=== PATIENT | female | born 1955 | race Caucasian/White ===

== ENCOUNTER → 2019-11-13 08:14 | Outpatient (CLI) | payer MEDICARE, SELFPAY ==
--- NOTE | ~2019-11-13 | MMUS_ITS ---
EXAMINATION: MM diagnostic anabel BI w ray, US breast BI complete HISTORY: Fibrocystic changes TECHNIQUE: ML, MLO and craniocaudal 3-D tomosynthesis images of both breasts were performed and synth [facility] 2-D images were generated. CAD analysis was submitted and interpreted. High resolution complete bilateral breast ultrasound was performed. COMPARISON: 10/06/2017, 09/29/2016, 09/17/2015 bilateral diagnostic digital mammogram examinations 03/20/2019 bilateral complete breast ultrasound BREAST PARENCHYMAL COMPOSITION: The breasts are extremely dense, which lowers the sensitivity of mamm ography. FINDINGS: MAMMOGRAPHIC FINDINGS: Scattered bilateral benign calcifications are again noted, more numerous on the left. ULTRASOUND: Right breast: 9:00 3 cm from nipple: 3 x 6.4 x 10 mm parallel circumscribed mildly complicated cyst with through tr ansmission and posterior enhancement 10:00 3 cm from nipple: Parallel circumscribed sonolucency measuring 2.2 x 3.7 x 3.4 mm, compatible w ith small cyst Left breast: 8:00 4 cm from nipple: 2.6 x 4.2 x 3.5 mm sonolucency consistent with small cyst No suspicious solid lesion or shadowing of either breast is evident. IMPRESSION: 1. No mammographic evidence of malignancy 2. Routine mammographic screening is recommended. Ultrasound may be of supplemental benefit due to th e very dense tissue. BI-RADS Category 2: Benign finding(s). Reviewed, dictated and finalized at location A. MANAGER IMPRESSION: 1. No mammographic evidence of malignancy 2. Routine mammographic screening is recommended. Ultrasound may be of suppleme ntal benefit due to the very dense tissue. BI-RADS Category 2: Benign finding(s).
== END ==
PROVIDERS: PCP Family Medicine; Visit Provider Obstetrics & Gynecology
DX: R92.8 Other abnormal and inconclusive findings on diagnostic imaging of breast (principal); Z87.898 Personal history of other specified conditions
CPT/HCPCS: 76641; 77062; 77066; G0279

== ENCOUNTER 2020-07-23 23:22 | Inpatient (IN) | payer MEDICARE, SELFPAY ==
--- NOTE | ~2020-07-23 | XR_ITS ---
EXAMINATION: XR abdomen NG/feed tube insert EXAM DATE: 07/24/2020 03:21 INDICATION: Nasogastric tube insertion. TECHNIQUE: Frontal projection(s) of the abdomen for interpretation. There is no prior study for jo han. FINDINGS: Feeding tube tip projects over left upper quadrant, tip likely in stomach with the side po rt at the gastroesophageal junction. Could be safely advanced 5 cm. Contrast in the kidneys. There is large amount of colonic stool. Correlate with CT report. Lung bases unremarkable. IMPRESSION: Feeding tube tip overlying stomach but could be safely advanced 5 cm. Reviewed, dictated and finalized at location A. E NAVIGATOR
--- NOTE | ~2020-07-23 | CT_ITS ---
EXAMINATION: CT abdomen pelvis w con EXAM DATE: 07/24/2020 01:23 INDICATION: Low abdominal pain. TECHNIQUE: Spiral CT of the abdomen and pelvis was performed following intravenous injection of 100 m L Omnipaque 350. Axial, coronal and sagittal images were reviewed. The dose-length product (DLP) fo r this examination was 197.73 mGy-cm. The exposure was tailored according to patient size (auto mA e xposure control), and iterative reconstruction (ASIR) was used as additional dose reduction technique . There is no prior study for comparison. FINDINGS: Distended colon with loose appearing stool in the right lower quadrant, appearance most co nsistent with cecal volvulus or bascule, diameter up to 8 cm. No pneumatosis, perforation or wall ed romi. Small bowel unremarkable. The liver, spleen, adrenal glands and pancreas are unremarkable. Gallbladder is unremarkable. No bi liary obstruction. Portal and splenic veins are patent. Kidneys enhance symmetrically. There is no hydronephrosis. The uterus is not identified and has likely been surgically resected. The bladder is unremarkable. There is no retroperitoneal or pelvic lymphadenopathy. There is mild scattered a rteriosclerotic disease. The heart is normal in size. There are no pericardial or pleural effusions. The lung bases are unre markable. There is sclerotic 1 cm focus in the right iliac crest, most likely a bone island. 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 Reviewed, dictated and finalized at location A. ORK MGR
--- NOTE | ~2020-07-23 | XR_ITS ---
EXAMINATION: XR abdomen/kub 1V DATE: 07/24/2020 11:30 INDICATION: Cecal volvulus. TECHNIQUE: A supine view of the abdomen was obtained. COMPARISON: CT abdomen and pelvis 07/24/2020 FINDINGS: There are no dilated loops of bowel. There is a large volume of stool in the colon. The kelly ogastric tube tip is in the stomach. There is a benign bone island in right ilium. IMPRESSION: 1. Nonobstructive bowel gas pattern. Reviewed, dictated and finalized at location B. SITE DEVELOPER
--- NOTE | ~2020-07-23 | XR_ITS ---
EXAMINATION: XR chest 2V EXAM DATE: 07/24/2020 03:08 INDICATION: Abdominal pain. TECHNIQUE: Frontal and lateral projections of the chest obtained and reviewed. Comparison is made to prior examination from 02/11/2019. FINDINGS: Moderate chronic hyperinflation. No confluent consolidation, pneumothorax or pleural effus ion suspected. There are no osseous abnormalities identified. Cardiomediastinal silhouette is normal. Some contrast in the kidneys. IMPRESSION: Chronic hyperinflation. Reviewed, dictated and finalized at location A. GE DOOR HANGER IMPRESSION: Chronic hyperinflation.
[2020-07-23 23:27] VITALS: BP 145/51; PULSE 54; RESP 14; TEMP 36.4; O2SAT 100
[2020-07-24] VITALS (9 sets, daily range): BP systolic 96–135; BP diastolic 45–63; PULSE 53–67; RESP 16–18; TEMP 36.8–37.2; O2SAT 95–100
[2020-07-24 00:09] LABS: Basophils Percent Auto 0.4 % (0.2-1.2); Eosinophils Absolute Auto 0.1 K/mm3 (0-0.3); Hematocrit 39.9 % (37.0-47.0); Hemoglobin 14.4 g/dL (12.0-15.0); Immature Granulocyte Absolute 0.03 K/mm3 (0.00-0.031); Immature Granulocyte Percent A 0.4 % (0-0.5); Lymphocytes Absolute Auto 0.97 K/mm3 (0.9-3.2); Lymphocytes Percent Auto 12.5 % (18.3-44.2); Mean Corpuscular HGB Conc 36.1 g/dl (32-36); Mean Corpuscular Hemoglobin 35.2 pg (26-34); Mean Corpuscular Volume 97.6 fl (80-100); Mean Platelet Volume 9.4 fl (7.4-10.4); Monocytes Absolute Auto 0.6 K/mm3 (0.1-0.6); Monocytes Percent Auto 7.6 % (2.6-8.5); Neutrophils Absolute Auto 6.1 K/mm3 (1.3-6.7); Neutrophils Percent Auto 78.1 % (45.5-73.1); Platelet Count Result 200 k/mm3 (150-375); Red Blood Count 4.09 M/mm3 (4.2-5.4); Red Cell Distribution Width 11.3 % (11.5-14.5); White Blood Count 7.8 K/mm3 (4.5-10.0)
[2020-07-24] MEDS: MORPHINE SULFATE (*CRX) 4 MG/ML INJ IV PUSH (00:13)
[2020-07-24] MEDS: ONDANSETRON INJ 4 MG/2 ML VIAL IV PUSH (00:13)
[2020-07-24 00:25] LABS: Alanine Aminotransferase 38 U/L (4-35); Albumin Level 4.1 g/dL (3.5-5.1); Alkaline Phosphatase 49 U/L (38-126); Anion Gap 6 mmol/L (8-16); Aspartate Amino Transferase 38 U/L (14-36); Bilirubin,Total 0.7 mg/dL (0.2-1.3); Blood Urea Nitrogen 25 mg/dL (7-17); Calcium 9.3 mg/dL (8.4-10.2); Carbon Dioxide 28 mmol/L (22-30); Chloride 100 mmol/L (98-107); Estimated CRCL calculation 50 ml/min; Estimated Glomerular Filt Rate > 60; Glucose 121 mg/dL (65-105); Lipase 94 U/L (23-300); Sodium 134 mmol/L (137-145)
--- NOTE | 2020-07-24 01:09 | ED.GENADULT ---
HPI - General Adult General Chief complaint: Abdominal Pain Stated complaint: cramping abd/back Time Seen by Provider: 07/23/20 23:50 History of Present Illness HPI narrative: Patient is a 65-year-old female who presents ER with lower abdominal cramping. Began yesterday evening. Radiates to her back. Intermittent. No nausea or vomiting or diarrhea. No previous history of diverticulitis. Denies urinary symptoms including dysuria or urinary frequency. Cannot find aggravating factors nor position comfort. Patient reports feeling very bloated like there is a lot of gas. No previous history of SBO. Related Data Allergies Allergy/AdvReac Type Severity Reaction Status Date / Time latex Allergy Intermediate RASH Verified 07/24/20 00:12 Penicillins Allergy Intermediate HIVES Verified 07/24/20 00:12 Review of Systems Review of Systems: All systems reviewed & are unremarkable except as noted in HPI and below Constitutional: Constitutional: Denies chills, Denies fever(s) and Denies weakness Gastrointestinal: Gastrointestinal: Reports abdominal pain, Reports bloating, Denies nausea and Denies vomiting Genitourinary: Genitourinary: Denies nocturia, Denies dysuria and Denies flank pain Musculoskeletal: Musculoskeletal: Reports back pain PMFSH Past Medical History Medical History (Updated 07/24/20 @ 02:28 by Luis Fernando Vieyra MD) Atrial fibrillation Hypertension Obstructive sleep apnea Surgical History Surgical History (Updated 07/24/20 @ 01:14 by Luis Fernando Vieyra MD) H/O hysterectomy for benign disease Social History Social History (Updated 07/24/20 @ 01:14 by Luis Fernando Vieyra MD) Smoking status: Never smoker Exam Narrative: Exam Narrative: GENERAL: Well-appearing, well-nourished, and in no acute distress. HEAD: Normocephalic, atraumatic. CHEST: Clear to auscultation. No respiratory distress. HEART: Bradycardic and regular. Normal peripheral pulses. ABDOMEN: Soft, mild lower abdominal discomfort w/o guarding, nondistended, normal active bowel sounds. Back: No midline tenderness of thoracic or lumbar spine. Mild bilateral lower lumbar spine paraspinal muscular tenderness. EXTREMITIES: Normal range of motion. No edema. SKIN: Warm, dry, no rash. NEURO: Alert and oriented x3. PSYCH: Normal mood and affect. Course Course Emergency Course: Discussed case with Dr. Russell. Admit to hospitalist service and place NG tube. Patient reports she had her evening Xarelto. Vital Signs Vital signs: Vital Signs Temperature 97.6 F 07/23/20 23:27 Pulse Rate 54 L 07/23/20 23:27 Respiratory Rate 14 07/23/20 23:27 Blood Pressure 145/51 H 07/23/20 23:27 Pulse Oximetry 100 07/23/20 23:27 Temperature 97.6 F 07/23/20 23:27 Pulse Rate 53 L 07/24/20 02:04 Respiratory Rate 16 07/24/20 02:04 Blood Pressure 105/51 L 07/24/20 02:04 Pulse Oximetry 99 07/24/20 02:04 Medical Decision Making Vital Signs Vital Signs: Vital Signs Temperature 97.6 F 07/23/20 23:27 Pulse Rate 54 L 07/23/20 23:27 Respiratory Rate 14 07/23/20 23:27 Blood Pressure 145/51 H 07/23/20 23:27 Pulse Oximetry 100 07/23/20 23:27 Temperature 97.6 F 07/23/20 23:27 Pulse Rate 53 L 07/24/20 02:04 Respiratory Rate 16 07/24/20 02:04 Blood Pressure 105/51 L 07/24/20 02:04 Pulse Oximetry 99 07/24/20 02:04 Lab Data Result diagrams: 07/23/20 23:55 07/23/20 23:55 Labs: Lab Results 07/23/20 07/23/20 07/24/20 Range/Units 23:55 23:55 02:02 WBC 7.8 (4.5-10.0) K/mm3 RBC 4.09 L (4.2-5.4) M/mm3 Hgb 14.4 (12.0-15.0) g/dL Hct 39.9 (37.0-47.0) % MCV 97.6 (80-100) fl MCH 35.2 H (26-34) pg MCHC 36.1 H (32-36) g/dl RDW 11.3 L (11.5-14.5) % Plt Count 200 (150-375) k/mm3 MPV 9.4 (7.4-10.4) fl Immature Gran % (Auto) 0.4 (0-0.5) % Neut % (Auto) 78.1 H (45.5-73.1) % Lymph % (Auto) 12.5 L (18.3-44.2) % [place] % (A
--- NOTE | 2020-07-24 02:04 | PC.NURSE ---
Patient stood up to go to bathroom to give UA, c/o feeling faint and sweaty-patient placed back on stretcher where she started feeling less faint but still sweaty . Dr Vieyra made aware
[2020-07-24] MEDS: SODIUM CHLORIDE 0.9% IV 1,000 ML 999 ML IV CONT (02:27)
[2020-07-24 02:28] LABS: Lactic Acid Reflex 0.8 mmol/L (0.7-2.1)
--- NOTE | 2020-07-24 02:28 | ECG_ITS ---
Measurements Intervals [place] Rate: 52 P: 81 HI: 140 QRS: 74 QRSD: 92 T: 79 QT: 458 QTc: 430 Interpretive Statements SINUS BRADYCARDIA BORDERLINE T WAVE ABNORMALITY- HIGH LATERAL LEADS BORDERLINE ECG Electronically Signed On 07-24-2020 8:10:46 EHS TEACHER by Maninder Thurman D.O.
[2020-07-24 02:36] LABS: Add Urine Microscopic? YES; Appearance Urine Clear (Clear); Bilirubin Urine Negative (Negative); Blood Urine Negative (Negative); Color Urine Yellow (Yellow); Glucose Urine UA Negative (Negative); Ketones Urine 1+ mg/dL (Negative); Leukocyte Esterase Ur Negative LEU/UL (Negative); Mucus Urine Rare /lpf; Nitrate Urine Negative (Negative); Protein Urine Negative (Negative); Squamous Epithelial Cell Urine Few /hpf (Few); Urobilinogen Urine Negative mg/dL (<2.0); WBC Urine 0-3 /hpf
[2020-07-24] MEDS: SODIUM CHLORIDE 0.9% IV 1,000 ML 125 ML IV CONT ×2 (04:21→12:42)
--- NOTE | 2020-07-24 04:25 | ADMGEN ---
This patient, Nasreen Garcia, was admitted to 3 Med Surg Room 311-01. Patient/family oriented to hospital policies and general routines including ID bracelet, bed and alarms, visiting hours, pain management, procedures, bathroom and other care routines, personal items, smoking policy, room service/diet, and visiting hours. Information on how to activate the Rapid Response Team has been discussed. Patient/Family are encouraged to report perceived risks to care and to ask questions if they do not understand what they are told or what they should do.
[2020-07-24 10:08] LABS: Hematocrit 38.7 % (37.0-47.0); Hemoglobin 13.9 g/dL (12.0-15.0); Mean Corpuscular HGB Conc 35.9 g/dl (32-36); Mean Corpuscular Hemoglobin 35.7 pg (26-34); Mean Corpuscular Volume 99.5 fl (80-100); Mean Platelet Volume 9.7 fl (7.4-10.4); Platelet Count Result 204 k/mm3 (150-375); Red Blood Count 3.89 M/mm3 (4.2-5.4); Red Cell Distribution Width 11.5 % (11.5-14.5); White Blood Count 7.3 K/mm3 (4.5-10.0)
[2020-07-24 10:12] LABS: Anion Gap 2 mmol/L (8-16); Blood Urea Nitrogen 16 mg/dL (7-17); Carbon Dioxide 29 mmol/L (22-30); Chloride 106 mmol/L (98-107); Estimated CRCL calculation 50 ml/min; Estimated Glomerular Filt Rate > 60; Glucose 102 mg/dL (65-105); Potassium 4.3 mmol/L (3.4-5.0); Sodium 137 mmol/L (137-145)
--- NOTE | 2020-07-24 10:23 | PM.CNGS ---
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 There is evidence of a cecal volvulus on imaging with correlation in her clinical exam. There is no current signs or evidence of ischemia or perforation. NG tube has been placed and she is currently NPO. I discussed the patient's case with Dr. Russell. We would recommend proceeding with a right colectomy by Dr. Russell tomorrow. Description of the procedure, risks, benefits, indications, and expected outcomes were discussed with the patient in detail. All questions were answered. Since the patient is stable, proceeding tomorrow will also allow more time for the Xarelto to wear off. Cardiology has been consulted for a pre-operative cardiac risk assessment. We will obtain an abdominal x-ray today to look at the bowel distention to assist in planning the approach for surgery. Continue bowel rest and NG tube decompression. Also continue IV fluids, analgesics, and antiemetics as needed. Thank you for allowing us to see the patient in consultation and we will continue to follow along with you. (2) Paroxysmal atrial fibrillation: Code(s): I48.0 - Paroxysmal atrial fibrillation Status: Acute Assessment and Plan: Cardiology consulted and appreciate their recommendations. (3) Chronic anticoagulation: Code(s): Z79.01 - nursing home (current) use of anticoagulants Status: Acute Assessment and Plan: Hold her Xarelto pre-operatively. (4) Obstructive sleep apnea: Code(s): G47.33 - Obstructive sleep apnea (adult) (pediatric) Status: Acute Assessment and Plan: Compliant with CPAP. (5) Hypertension: Code(s): I10 - Essential (primary) hypertension Status: Acute Assessment and Plan: Last BP 115/45, stable. Home medications currently on hold. Appreciate Hospitalist help. History of Present Illness Consult details Consult date: 07/24/20 Reason for consult: other (Cecal volvulus) Requesting physician: Luis Fernando Vieyra MD Narrative: This is a 65-year-old female with a history of hypertension, paroxysmal atrial fibrillation on chronic anticoagulation, and obstructive sleep apnea. She presented to the emergency department with complaints of abdominal pain and bloating. She reports noting abdominal bloating for the past 4-5 months. She then had a sudden onset of severe abdominal pain yesterday evening. The pain was described as cramping in nature and was persistent. She reports her abdomen became distended and she felt nauseated, but never vomited. Due to the unrelenting pain, she presented to the emergency department for further evaluation. The CT scan of the abdomen and pelvis showed a probable cecal volvulus or bascule. Labs were unremarkable on admission. Our service was consulted from the ED physician. An NG tube was placed and the patient was admitted to the Hospitalist service. The patient is now being seen on the medical floor. She denies any nausea or abdominal pain at this time. She reports the bloating has improved some since admission. Denies ever having this abdominal pain in the past. Reports her last BM was yesterday morning and normal for her. Denies flatus today. No other complaints at this time. The patient does take Xarelto for paroxysmal atrial fibrillation and took her last dose yesterday evening. Review of Systems Constitutional: Constitutional: Reports as per HPI, Denies chills, Denies excessive sweating, Denies fatigue, Denies fever(s), Denies headache(s) and Denies weakness Eyes: Eyes: Denies change in vision and Denies loss of vision ENT: Reports Normal hearing present, Denies dizziness and Denies headache(s) Cardiovascular: Cardiovascular: Denies chest pain, Denies syncope, Denies leg edema, Denies lightheadedness, Denies radiating jaw, neck or arm pain and Denies dyspnea R
--- NOTE | 2020-07-24 10:25 | PM.CNCAR ---
Assessment and Plan Assessment and plan (1) Paroxysmal atrial fibrillation: Code(s): I48.0 - Paroxysmal atrial fibrillation Status: Acute Assessment and Plan: Stable, maintaining sinus rhythm on metoprolol 12.5 mg TID at home (she tolerates this regimen the best). Xarelto taken last evening. Patient anticipated be lower risk for intermediate risk noncardiac abdominal surgery. Monitor perioperatively for recurrent atrial fibrillation. she reports no anginal symptoms and has no history of CAD. No ischemic changes on EKG, she was previously very active on a daily basis >4METS activity. Proceed to OR if necessary without further invasive testing. Will need to monitor for bleeding perioperatively. Ideally, bleeding risk would be lessened by holding Xarelto 48 hours preoperatively but this decision needs to be made in context of cecal volvulus complications/pt comfort. This decision will need to be deferred to the surgical service. She has a history of carotid Dopplers with less than 50% stenosis on the left, no renal artery stenosis with preserved EF by echocardiogram previously. (2) Chronic anticoagulation: Code(s): Z79.01 - [facility] (current) use of anticoagulants Status: Acute Assessment and Plan: On Hold but last dose Xarelto 20mg qhs last night. As above, 48 hour hold would reduce bleeding risk. (3) Hypertension: Code(s): I10 - Essential (primary) hypertension Status: Inactive Assessment and Plan: Stable, controlled. No acute issues. Patient has a history of labile hypertension. Monitor perioperatively. (4) Obstructive sleep apnea: Code(s): G47.33 - Obstructive sleep apnea (adult) (pediatric) Status: Inactive Assessment and Plan: Stable. Continue therapy, CPAP. (5) Cecal volvulus: Code(s): K56.2 - Volvulus Status: Acute Assessment and Plan: Per Surgical Service. At this time surgery has been recommended and planned for tomorrow. Please see above. History of Present Illness History of Present Illness Consult date/time: Date of service: 07/24/20 10:25 cardiology consultation the request of Dr. Vieyra of the [facility] for our opinion regarding preoperative cardiovascular risk assessment. Requesting physician: Luis Fernando Vieyra MD Consult reason: pre-op evaluation Reason For Visit: cecal volvulous Narrative: Patient is a very pleasant 65-year-old female well known to me from past medical history significant for labile hypertension, paroxysmal atrial fibrillation, obstructive sleep apnea on CPAP, on chronic anticoagulation with Xarelto who presents emergency department complaints of 4 months abdominal fullness and intermittent discomfort becoming intolerable due to bloating and pain. CT abdomen pelvis revealed cecal volvulus which surgery has been consulted. She denies chest pain, shortness of breath, near-syncope or syncope. She denies bright red blood per rectum or melena. No fevers, chills or trauma /falls. No recent sick contacts or illnesses. She is feeling better with NG tube decompression. Blood pressure is controlled, maintaining sinus rhythm on EKG. she generally exercises daily pre walking and weights and has been able to remain active up until presentation without new limitations. She notes on occasion her heart rate in the evening will be in the mid upper 40s for which she takes 6.25 mg metoprolol but generally tolerates metoprolol 12.5 mg 3 times daily (BID dosing resulted in excessive fatigue, bradycardia with loser dosing more frequent A.Fib recurrence/palpitations). she reports compliance with CPAP. No edema, orthopnea or PND. Review of Systems Review of Systems: All systems reviewed & are unremarkable except as noted in HPI and below Constitutional: Constitutional: Reports as per HPI and Reports no additional constitutional complaints Eyes: Eyes: Reports as per HPI and Reports no
--- NOTE | 2020-07-24 11:02 | PM.IMHP ---
H&P: HPI History of Present Illness Date/Time: 07/24/20 11:02 Chief complaint: cecal volvulous Narrative: Date of service: 07/24/2020 Nasreen Garcia is a 65 year old female with history of atrial fibrillation and hypertension who presented to the emergency department on 07/24/2020 with complaints abdominal cramping. yesterday afternoon, around 3:30 p.m., patient noted onset severe abdominal cramping. She felt that maybe she was constipated. She tried to use the bathroom but did not have a bowel movement. The cramping persisted for several hours, which prompted her to seek emergency care. She had no previous episodes of abdominal cramping, but notes that she has noticed that her abdomen has been more firm and distended for approximately 4-5 months. She had also been having increased gas. her bowel movements have been regular, and she reports daily soft, formed stools. Denies melena or hematochezia. Her appetite has been appropriate and she denies any early satiety. No weight loss or weight gain. She had a brief wave of nausea with onset of abdominal cramping, however this past quickly, and she otherwise denies nausea or vomiting. Upon presentation to the ED, vital signs were stable, CBC within normal limits, electrolytes stable, and CT showed probably cecal volvulus. NG tube was placed. Upon my evaluation, her abdominal cramping has resolved. She is feeling better after NG decompression. Review of Systems Review of Systems: Narrative: Pertinent positives and negatives as per HPI. Additionally, patient denies shortness of breath, cough, chest pain, palpitations, dizziness, lightheadedness, headache, confusion, dysuria, hematuria, body aches, fevers, or chills. She endorses seasonal allergies. She has sore throat related to NG tube. [facility] Past Medical History Medical History (Updated 07/24/20 @ 11:38 by Rose Marie Oneal PA-C) Atrial fibrillation Depression Hypertension Obstructive sleep apnea Surgical History Surgical History (Updated 07/24/20 @ 11:38 by Rose Marie Oneal PA-C) H/O hysterectomy for benign disease Laparoscopic LOVE-BSO History of tonsillectomy Family History Family History Mother Colon cancer Father Hypertension Acute myocardial infarction Cerebrovascular accident Social History Social History (Updated 07/24/20 @ 11:41 by Rose Marie Oneal PA-C) Social History: Ms. Garcia lives at home with her . She is independent in her ADLs. She is a retired teacher. Her PCP is Dr. Parker. She designates her , Roshan, as her surrogate decision maker. She would like to be a full code. Smoking status: Never smoker Alcohol intake: current Drinks per week: 0 Alcohol use details: 1 alcoholic beverage monthly. Substance use: never Living arrangements: with family Additional living arrangements comments: Lives with , Billy. Occupation/Education: retired Gender identity (if verbalized by the patient): Female Sexual Orientation (if Verbalized by the Patient): Straight or Heterosexual Spiritual care concerns: No Meds Home Medications and Allergies Home Medications Medication Instructions Recorded Confirmed Type escitalopram oxalate 20 mg PO HS 07/24/20 07/24/20 History finasteride 2.5 mg PO DAILY 07/24/20 07/24/20 History lisinopril 10 mg PO DAILY 07/24/20 07/24/20 History metoprolol tartrate 12.5 mg PO BID 07/24/20 07/24/20 History rivaroxaban [Xarelto] 20 mg PO HS 07/24/20 07/24/20 History spironolactone 25 mg PO DAILY 07/24/20 07/24/20 History Allergies Allergy/AdvReac Type Severity Reaction Status Date / Time Penicillins Allergy Intermediate HIVES Verified 07/24/20 04:51 latex Allergy Mild RASH Verified 07/24/20 04:51 Vital Signs Vital Signs - 24 hr 07/23/20 23:27 07/24/20 02:04 07/24/20 02:30 Temperature 97.6 F Pulse Rate 54 L 53 L 54 L Respiratory Rate 14 16
--- NOTE | 2020-07-24 16:58 | PM.PNGS ---
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 This has a high risk of recurrence. It probably has been recurring to some degree for several months. I have recommended we go ahead with right colectomy. Initially, I thought it would be best to do this open as the cecum was quite dilated. However follow-up film done later this morning did show that the cecum was down to normal size. There was a normal bowel gas pattern is well. Will go ahead and do this laparoscopically with hand access technique. This was discussed with the patient. The procedure, the risks, the benefits were discussed. The usual recovery and time in the hospital were discussed. All questions were answered. She agrees to go ahead. (2) Paroxysmal atrial fibrillation: Code(s): I48.0 - Paroxysmal atrial fibrillation Status: Chronic (3) Chronic anticoagulation: Code(s): Z79.01 - terminal system operator (current) use of anticoagulants Status: Chronic Assessment and Plan: Last dose of Xarelto was 8 or 9:00 p.m. on 07/23. This should allow satisfactory time for this to reverse proceeding with surgery tomorrow morning. (4) Obstructive sleep apnea: Code(s): G47.33 - Obstructive sleep apnea (adult) (pediatric) Status: Chronic (5) Hypertension: Code(s): I10 - Essential (primary) hypertension Status: Chronic Subjective Subjective Date/Time Seen: 07/24/20 16:58 Interval history: Patient is a 65-year-old woman who is had severe abdominal pain primarily in the lower abdomen since yesterday evening. She had noticed for several months that her abdomen had been somewhat bloated or distended in the lower abdomen although she really had not had any pain until yesterday. This pain was very severe and she ended up coming to the emergency room. In the emergency room she was noted to have tenderness in the right lower quadrant and abdominal distention. Imaging showed evidence of cecal volvulus. She was given pain medication and IV fluid. An NG tube was placed. This morning she felt quite a bit better. She was no longer having pain. Her main complaint was the NG tube. She does take Xarelto for paroxysmal atrial fibrillation and her last dose was yesterday evening about 8 or 9:00 p.m.. Review of Systems Review of Systems: All systems reviewed & are unremarkable except as noted in HPI and below Constitutional: Constitutional: Denies headache(s) Cardiovascular: Cardiovascular: Denies chest pain and Denies dyspnea Respiratory: Respiratory: Denies cough and Denies dyspnea Gastrointestinal: Gastrointestinal: Reports as per HPI Neurologic: Denies confusion and Denies headache(s) Exam Const: General: comfortable and no acute distress; No confusion Orientation/consciousness: patient oriented x3 and No confusion Resp: Effort & Inspection: normal respiratory effort Auscultation: clear to auscultation bilaterally Cardio: Rate: regular rate Rhythm: regular rhythm GI: Inspection: normal to inspection, no edema and no scars GI Palp: Yes Soft to palpation, No Tenderness to palpation present (GI), No Guarding due to palpation present (GI) and No Rebound tenderness present Auscultation: normal bowel sounds Neuro: General: patient oriented x3, no focal motor deficits and No confusion Extrem: General: no calf tenderness and no edema Psych: Affect: normal affect Insight: Good insight present (Psych) Judgement: Good judgement present (Psych) Objective Data Vital Signs Vital Signs: Vital Signs - 24 hr 07/23/20 23:27 07/24/20 02:04 07/24/20 02:30 Temperature 36.4 C Pulse Rate 54 L 53 L 54 L Respiratory Rate 14 16 16 Blood Pressure 145/51 H 105/51 L 98/52 L Pulse Oximetry 100 99 99 07/24/20 03:00 07/24/20 03:40 07/24/20 04:00
[2020-07-24] MEDS: SODIUM CHLORIDE 0.9% IV 1,000 ML 75 ML IV CONT (21:48)
[2020-07-25] VITALS (14 sets, daily range): BP systolic 110–143; BP diastolic 45–98; PULSE 57–88; RESP 15–20; TEMP 36.2–37.8; O2SAT 94–100
[2020-07-25 06:34] LABS: Hematocrit 40.6 % (37.0-47.0); Hemoglobin 14.2 g/dL (12.0-15.0); Mean Corpuscular Hemoglobin 35.1 pg (26-34); Mean Corpuscular Volume 100.2 fl (80-100); Mean Platelet Volume 9.6 fl (7.4-10.4); Platelet Count Result 191 k/mm3 (150-375); Red Blood Count 4.05 M/mm3 (4.2-5.4); Red Cell Distribution Width 11.6 % (11.5-14.5)
[2020-07-25 06:49] LABS: Anion Gap 4 mmol/L (8-16); Blood Urea Nitrogen 14 mg/dL (7-17); Calcium 7.7 mg/dL (8.4-10.2); Carbon Dioxide 27 mmol/L (22-30); Chloride 108 mmol/L (98-107); Estimated CRCL calculation 50 ml/min; Estimated Glomerular Filt Rate > 60; Glucose 90 mg/dL (65-105); Sodium 139 mmol/L (137-145)
[2020-07-25] MEDS: SODIUM CHLORIDE 0.9% IV 1,000 ML 75 ML IV CONT (06:49)
--- NOTE | 2020-07-25 06:49 | WPDHPUPDATE1 ---
History and Physical Update Update Date/Time: 07/25/20 06:49 History and Physical has been reviewed, including an updated exam of the patient. There are NO changes in the patient's condition. Risks, benefits, and alternatives have been discussed and questions answered. Patient agrees to proceed with procedure.
--- NOTE | 2020-07-25 07:47 | PC.NURSE ---
To OR per OR staff, IV 20RFA.
--- NOTE | 2020-07-25 08:23 | WPDANESEPPF ---
Anes - Initial Pre Proc Eval Procedure: Operation Date: 07/25/20 09:00 Proposed Procedures p Hand Access Laparoscopic Right Colectomy - Joni Russell MD Date/Time: 07/25/20 08:23 Surgeon: Rose Marie Oneal PA-C Pre Op Diagnosis: cecal volvulous Patient Data Age: 65 Gender: F Height: 5 ft 5 in Weight: 53 kg Last Vital Signs Temp 37.2 C 07/25/20 05:25 Pulse 57 L 07/25/20 05:25 Resp 18 07/25/20 05:25 BP 134/62 07/25/20 05:25 Pulse Ox 96 07/25/20 05:25 Allergies Allergy/AdvReac Type Severity Reaction Status Date / Time Penicillins Allergy Intermediate HIVES Verified 07/24/20 04:51 latex Allergy Mild RASH Verified 07/24/20 04:51 Home Medications Medication Instructions Recorded Confirmed Type escitalopram oxalate 20 mg PO HS 07/24/20 07/24/20 History finasteride 2.5 mg PO DAILY 07/24/20 07/24/20 History lisinopril 10 mg PO DAILY 07/24/20 07/24/20 History metoprolol tartrate 12.5 mg PO BID 07/24/20 07/24/20 History rivaroxaban [Xarelto] 20 mg PO HS 07/24/20 07/24/20 History spironolactone 25 mg PO DAILY 07/24/20 07/24/20 History Laboratory Tests 07/24/20 07/24/20 07/24/20 09:37 09:37 11:10 WBC 7.3 K/mm3 K/mm3 (4.5-10.0) RBC 3.89 M/mm3 L M/mm3 (4.2-5.4) Hgb 13.9 g/dL g/dL (12.0-15.0) Hct 38.7 % % (37.0-47.0) MCV 99.5 fl fl (80-100) MCH 35.7 pg H pg (26-34) MCHC 35.9 g/dl g/dl (32-36) RDW 11.5 % % (11.5-14.5) Plt Count 204 k/mm3 k/mm3 (150-375) MPV 9.7 fl fl (7.4-10.4) Sodium 137 mmol/L mmol/L (137-145) Potassium 4.3 mmol/L mmol/L (3.4-5.0) Chloride 106 mmol/L mmol/L (98-107) Carbon Dioxide 29 mmol/L mmol/L (22-30) Anion Gap 2 mmol/L L mmol/L (8-16) BUN 16 mg/dL mg/dL (7-17) Creatinine 0.80 mg/dL mg/dL (0.7-1.0) Estim Creat Clear Calc 50 ml/min ml/min Estimated GFR > 60 (59 - ) Glucose 102 mg/dL mg/dL (65-105) Calcium 8.0 mg/dL L mg/dL (8.4-10.2) Blood Type B Positive Antibody Screen Negative 07/25/20 07/25/20 06:04 06:04 WBC 6.0 K/mm3 K/mm3 (4.5-10.0) RBC 4.05 M/mm3 L M/mm3 (4.2-5.4) Hgb 14.2 g/dL g/dL (12.0-15.0) Hct 40.6 % % (37.0-47.0) MCV 100.2 fl H fl (80-100) MCH 35.1 pg H pg (26-34) MCHC 35.0 g/dl g/dl (32-36) RDW 11.6 % % (11.5-14.5) Plt Count 191 k/mm3 k/mm3 (150-375) MPV 9.6 fl fl (7.4-10.4) Sodium 139 mmol/L mmol/L (137-145) Potassium 4.0 mmol/L mmol/L (3.4-5.0) Chloride 108 mmol/L H mmol/L (98-107) Carbon Dioxide 27 mmol/L mmol/L (22-30) Anion Gap 4 mmol/L L mmol/L (8-16) BUN 14 mg/dL mg/dL (7-17) Creatinine 0.80 mg/dL mg/dL (0.7-1.0) Estim Creat Clear Calc 50 ml/min ml/min Estimated GFR > 60 (59 - ) Glucose 90 mg/dL mg/dL (65-105) Calcium 7.7 mg/dL L mg/dL (8.4-10.2) Blood Type Antibody Screen Patient hx anesthesia problems: none Family hx anesthesia problems: none PMFSH Past Medical History Medical History Atrial fibrillation Depression Hypertension Obstructive sleep apnea Surgical History Surgical History H/O hysterectomy for benign disease Laparoscopic LOVE-BSO History of tonsillectomy Family History Family History Mother Colon cancer Father Hypertension Acute myocardial infarction Cerebrovascular accident Social History Social History Social History: Ms. Garcia lives at home with her . She is independent in her ADLs. She is a r
[2020-07-25] MEDS: ALVIMOPAN 12 MG CAPSULE PO (08:31)
[2020-07-25] MEDS: LACTATED RINGERS 1,000 ML 30 ML IV CONT ×2 (08:32→12:19)
[2020-07-25] MEDS: CLINDAMYCIN 900 MG/D5W 50 ML 900 MG/50 ML PIGGYBACK 50 MG IVPB (09:44)
--- NOTE | 2020-07-25 09:47 | PM.PROC ---
Procedure Note - Detailed Date of procedure: 07/25/20 Pre-op diagnosis: cecal volvulous Cecal volvulus Post-op diagnosis: same Procedure performed: Hand access laparoscopic right colectomy with ileotransverse anastomosis Description of procedure: The patient was taken to surgery and induced into general anesthesia. The abdomen is prepped and draped. The proposed incision for the hand access port was drawn in the midline above the umbilicus. It was approximately 7 cm in length. Local was infiltrated in the area of the anticipated incision. The subcutaneous was infiltrated as well. Incision was made and dissection was carried down to the midline fascia. Additional local was infiltrated into the fascia. The fascia was opened as was the peritoneum. This opening was extended the length of the wound. I placed a hand in the abdomen and checked for any adhesions in the neighboring part of the abdominal wall. There were none. The Enrique was then placed as was the GelPort. With the hand in the abdomen I then placed a 5 mm port in the right lower quadrant just above the inguinal ligament. Another 5 mm port was placed in the left mid abdomen. The patient was placed in Trendelenburg with the right side elevated. The base of the distal ileum was exposed. Using the LigaSure device, we divided the peritoneum at the base of the distal ileum. This allowed some blunt and sharp dissection into the retroperitoneum. We continued with a medial to lateral dissection of thel ascending colon mesentery. Staying above the kidney and the duodenum, we continued this dissection up until the transverse mesocolon was exposed. From there, I found the ileocolic artery. I divided the mesentery around the ileocolic artery on either side. I then used the LigaSure and divided the ileocolic artery. I divided the mesentery to the distal ileum up to the proximal line of resection with the LigaSure. I then exposed the lateral peritoneal attachments to the ascending colon and divided these with the LigaSure. At the hepatic flexure, the hepatic colic ligaments were divided and we turned the corner to the proximal transverse colon. Some adhesions to the gallbladder were divided as well. I divided some additional omental attachments as well as the hepatocolic ligament to mobilize the proximal transverse colon. I then went back to the ileocolic artery site and began dividing the mesentery to the ascending colon up to the transverse colon. I then elevated the transverse colon and divided the transverse colon mesentery. This proceeded until we also divided the right branch of the middle colic artery with the LigaSure. At this point the ascending colon was entirely mobilized. We stopped insufflation and eviscerated the ascending colon with the distal ileum and proximal transverse colon. The points of resection on the distal ileum and proximal transverse colon were inspected. All looked good with good blood supply. I then used 4 0 silk suture and approximated the distal ileum and transverse colon where the anastomosis was anticipated to be created. These were 4 0 silk interrupted Lembert suture. I then made an enterotomy in the distal ileum and placed the anvil into position. A colotomy in the more proximal transverse colon was made and the other half of the TLC 75 stapler was positioned here. The stapler was fired creating a [id number] anastomosis of ileum and transverse colon. The stapler was removed. A new load was placed. We then divided the distal ileum and proximal transverse colon such that the enterotomy and colotomy were part of the specimen. The ascending colon was then passed off as a specimen. Four 0 silk Lembert sutures were then used to dunk the transverse staple line. The sutures were placed in interrupted fashion and had the desired effect. I recheck the anastomosis and all looked very good. There was no evidence of tension or vascular insufficiency. There was a good lumen be
[2020-07-25] MEDS: metroNIDAZOLE 500 MG/ISO 100ML 500 MG/100 ML BAG 100 MG IVPB (10:10)
--- NOTE | 2020-07-25 13:30 | PC.NURSE ---
Returned from OR per bed. Report received from Tami NOGUERA
[2020-07-25] MEDS: LACTATED RINGERS 1,000 ML 80 ML IV CONT (13:33)
[2020-07-25] MEDS: IBUPROFEN 400 MG TABLET PO (13:39)
--- NOTE | 2020-07-25 14:34 | PM.IMPN ---
Progress Note: A&P Assessment and Plan (1) Cecal volvulus: Code(s): K56.2 - Volvulus Status: Acute Assessment and Plan: Patient presented with severe abdominal cramping. CT a/p showed probable cecal volvulus. she underwent laparoscopic right colectomy with ileotransverse anastomosis today by Dr. Russell. She tolerated the procedure well. General surgery is following and input is appreciated Advanced to clear liquid diet per surgery. Continue to advance as tolerated. Continue gentle IV fluids. Analgesics and antiemetics as needed. (2) Paroxysmal atrial fibrillation: Code(s): I48.0 - Paroxysmal atrial fibrillation Status: Chronic Assessment and Plan: Rate is controlled. Patient is established with Dr. Desai. She is on long-term Xarelto. Cardiology consulted for surgical risk assessment and is following. Input is appreciated. Continue to hold xarelto. 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 Xarelto will be held perioperatively. Resume when safe to do so from surgical standpoint (4) Hypertension: Code(s): I10 - Essential (primary) hypertension Status: Chronic Assessment and Plan: Pressure evaluated today and is well controlled at 143/98. Resume lisinopril and metoprolol Monitor BP daily. (5) Obstructive sleep apnea: Code(s): G47.33 - Obstructive sleep apnea (adult) (pediatric) Status: Chronic Assessment and Plan: Chronic. Maintained on CPAP nightly. Initiate CPAP titrated to home settings Subjective Date/time seen: 07/25/20 14:34 Interval history: Date of service: 07/25/2020 Nasreen Garcia is a 65 year old female with history of atrial fibrillation and hypertension who is seen in follow-up for cecal volvulus. She underwent surgery today and tolerated the procedure well. She has pain with movement but at rest she is comfortable. She denies nausea or vomiting. She has not had any further abdominal cramping or bloating. Denies fever, chills, shortness or breath, cough, chest pain, palpitations, dizziness. lightheadedness, or weakness. She complains of sore throat secondary to NG. She is tolerating clear liquids. Review of Systems Review of Systems: All systems reviewed & are unremarkable except as noted in HPI and below Exam Narrative: Exam Narrative: Ms. Garcia is a thin, well-nourished 65-year-old female who is lying semi-recumbent in bed. She appears comfortable and is in NARD. HR 68, BP 143/98, RR 18, T 98.4?, 100% on room air Neuro: awake, alert and oriented x4, speech clear, no focal neuro deficits noted HEENMT: normocephalic, atraumatic, EOMI, sclerae anicteric, moist oral mucosa, tongue midline, nares patent Neck: supple, no lymphadenopathy Respiratory: clear to auscultation bilaterally, nonlabored breathing Cardio: regular rate, regular rhythm with S1-S2 Abdomen: nondistended, normoactive bowel sounds, soft, nontender to palpation, no rigidity or guarding, no rebound tenderness Extremities: no edema, erythema, cyanosis, clubbing, or tenderness to palpation, DP pulses 2+ bilaterally Skin: midline surgical scar, no rashes or lesions, warm and dry Psych: appropriate mood and affect, judgment and insight intact Objective Data Vital Signs Vital Signs: Vital Signs - 24 hr 07/24/20 21:59 07/25/20 05:25 07/25/20 08:00 Temperature 98.2 F 98.9 F 98.4 F Pulse Rate 67 57 L 68 Respiratory Rate 18 18 18 Blood Pressure 135/53 L 134/62 143/98 H Pulse Oximetry 100 96 100 07/25/20 12:19 07/25/20 12:30 07/25/20 12:45 Temperature 97.2 F L Pulse Rate 88 72 67 Respiratory Rate 15 16 16 Blood Pressure 130/65 115/61 128/63 Pulse Oximetry 100 100 100 07/25/20 13:00 07/25/20 13:14 Temperature Pulse Rate 67 68 Res
--- NOTE | 2020-07-25 18:01 | PCRCNOTE ---
Talked with pt about home CPAP. She would rather wear hers. SHe is going to contact her to bring hers in. Will recheck later.
[2020-07-25] MEDS: ESCITALOPRAM OXALATE 10 MG TABLET 20 MG PO (20:10)
[2020-07-25] MEDS: HYDROcodone/acetaminophen (*CRX) 5-325 MG TABLET 1 TAB PO (20:11)
[2020-07-26] VITALS (10 sets, daily range): BP systolic 117–131; BP diastolic 52–62; PULSE 54–82; RESP 16–20; TEMP 36.4–37.9; O2SAT 96–100
[2020-07-26] MEDS: IBUPROFEN 400 MG TABLET PO ×2 (00:19→17:13)
[2020-07-26] MEDS: LACTATED RINGERS 1,000 ML 80 ML IV CONT (02:08)
[2020-07-26] MEDS: HYDROcodone/acetaminophen (*CRX) 5-325 MG TABLET 1 TAB PO ×2 (05:21→21:04)
[2020-07-26 06:21] LABS: Basophils Percent Auto 0.2 % (0.2-1.2); Eosinophils Percent Auto 0.1 % (0-4.4); Hematocrit 41.9 % (37.0-47.0); Hemoglobin 14.7 g/dL (12.0-15.0); Immature Granulocyte Absolute 0.06 K/mm3 (0.00-0.031); Immature Granulocyte Percent A 0.5 % (0-0.5); Lymphocytes Percent Auto 9.9 % (18.3-44.2); Mean Corpuscular HGB Conc 35.1 g/dl (32-36); Mean Corpuscular Hemoglobin 35.5 pg (26-34); Mean Corpuscular Volume 101.2 fl (80-100); Mean Platelet Volume 9.7 fl (7.4-10.4); Monocytes Absolute Auto 0.9 K/mm3 (0.1-0.6); Monocytes Percent Auto 7.5 % (2.6-8.5); Neutrophils Percent Auto 81.8 % (45.5-73.1); Platelet Count Result 185 k/mm3 (150-375); Red Blood Count 4.14 M/mm3 (4.2-5.4); Red Cell Distribution Width 11.9 % (11.5-14.5); White Blood Count 12.2 K/mm3 (4.5-10.0)
[2020-07-26 06:33] LABS: Anion Gap 4 mmol/L (8-16); Blood Urea Nitrogen 12 mg/dL (7-17); Calcium 8.2 mg/dL (8.4-10.2); Carbon Dioxide 30 mmol/L (22-30); Chloride 102 mmol/L (98-107); Estimated CRCL calculation 50 ml/min; Estimated Glomerular Filt Rate > 60; Glucose 114 mg/dL (65-105); Potassium 3.8 mmol/L (3.4-5.0); Sodium 136 mmol/L (137-145)
--- NOTE | 2020-07-26 09:31 | PM.PNGS ---
Progress Note: A&P Assessment and Plan (1) Cecal volvulus: Code(s): K56.2 - Volvulus Status: Acute Assessment and Plan: Continue full liquids today Await return of bowel function Increase activity Subjective Subjective Date/Time Seen: 07/26/20 09:31 Pain controlled. No BM or flatus yet. Up ambulating. Tolerating full liquids. Exam GI: Inspection: non-distended and incision (C/D/I) GI Palp: Yes Soft to palpation and Yes Tenderness to palpation present (GI) (incisional) Auscultation: Hypoactive bowel sounds present Objective Data Vital Signs Vital Signs: Vital Signs - 24 hr 07/25/20 12:19 07/25/20 12:30 07/25/20 12:45 Temperature 36.2 C L Pulse Rate 88 72 67 Respiratory Rate 15 16 16 Blood Pressure 130/65 115/61 128/63 Pulse Oximetry 100 100 100 07/25/20 13:00 07/25/20 13:14 07/25/20 13:25 Temperature 36.5 C Pulse Rate 67 68 63 Respiratory Rate 16 16 16 Blood Pressure 119/65 122/88 133/50 L Pulse Oximetry 100 99 98 07/25/20 13:40 07/25/20 14:10 07/25/20 15:10 Temperature 36.5 C 36.8 C 37.2 C Pulse Rate 64 71 82 Respiratory Rate 18 16 20 Blood Pressure 137/59 L 116/45 L 110/45 L Pulse Oximetry 97 96 94 07/25/20 16:23 07/25/20 20:00 07/25/20 20:30 Temperature 37.8 C H 37.4 C Pulse Rate 80 Respiratory Rate 20 Blood Pressure 115/56 L 127/53 L Pulse Oximetry 100 07/26/20 00:00 07/26/20 02:30 07/26/20 04:00 Temperature 37.9 C H 37.7 C H 36.4 C Pulse Rate 82 60 Respiratory Rate 20 20 Blood Pressure 117/57 L 128/54 L Pulse Oximetry 96 97 07/26/20 08:00 Temperature 36.6 C Pulse Rate 60 Respiratory Rate 20 Blood Pressure 131/58 L Pulse Oximetry 99 Intake/Output Intake/Output: Intake & Output 07/23/20 07/24/20 07/25/20 07/26/20 23:59 23:59 23:59 23:59 Intake Total 3000 2230 1600 Output Total 4851 742 6791 Balance 1100 1530 0 Meds/Results Medications: Active Medications Generic Name Dose Route Start Last Admin Trade Name Freq PRN Reason Stop Dose Admin Hydrocodone Bitart/Acetaminophen 1 tab 07/25/20 13:18 07/26/20 05:21 Hydrocodone/Acetaminophen (*Crx) 5-325 Mg Tablet PO 1 tab Q4H PRN Administration Pain Rated 4-6 Hydrocodone Bitart/Acetaminophen 1 tab 07/25/20 13:18 Hydrocodone/Acetaminophen (*Crx) 7.5-325 Mg Tablet PO Q4H PRN Pain Rated 7-10 Alvimopan 12 mg 07/26/20 12:16 Alvimopan 12 Mg Capsule PO 08/02/20 12:17 Q12HR [facility] Enoxaparin Sodium 40 mg 07/26/20 09:00 Enoxaparin 40 Mg/0.4 Ml Syringe SUB-Q DAILY [facility] Escitalopram Oxalate 20 mg 07/25/20 21:00 07/25/20 20:10 Escitalopram Oxalate 10 Mg Tablet PO 20 mg HS OMER Administration Lactated Ringer's 1,000 mls @ 80 mls/hr 07/25/20 13:18 07/26/20 02:08 Lr - Lactated Ringers Iv IV CONT 80 mls/hr .[id number] OMER Administration Ibuprofen 400 mg 07/25/20 13:18 07/26/20 00:19 Ibuprofen 400 Mg Tablet PO 400 mg Q6H PRN Administration Pain Rated 1-3 Lisinopril 10 mg 07/26/20 09:00 Lisinopril 10 Mg Tablet PO DAILY [facility] Metoprolol Tartrate 12.5 mg 07/25/20 17:00 07/25/20 16:23 Metoprolol Tartrate 12.5 Mg Tablet PO Not Given BID [facility] Morphine Sulfate 1 mg 07/25/20 13:18 Morphine Sulfate (*Crx) 2 Mg/Ml Inj IV PUSH Q2H PRN Pain Rated 4-6 Morphine Sulfate 2 mg 07/25/20 13:18 Morphine Sulfate (*Crx) 4 Mg/Ml Inj IV PUSH Q2H PRN Pain Rated 7-10 Nonformulary Dru each 07/26/20 09:00 Finasteride 2.5 Mg PO 08/25/20 09:01 Tab DAILY [facility] Ondansetron HCl 4 mg 07/25/20 13:18 Ondansetron Inj 4 Mg/2 Ml Vial IV PUSH Q4H PRN Nausea And Vomiting Pantoprazole Sodium 40 mg 07/26/20 09:00 Pantoprazole 40 Mg Tablet PO QAM [facility] Phenol 1 spray 07/25/20 16:45 Phenol/Sod Pheno Charlotte Melara (*Bkc) MUCOUS MEM PRN PRN Sore Throat Spironolactone 25 mg 07/26/20 09:00 Spironolactone 25 Mg Tablet PO LEOBARDO
[2020-07-26] MEDS: ENOXAPARIN 40 MG/0.4 ML SYRINGE SUB-Q (09:35)
[2020-07-26] MEDS: lisinopriL 10 MG TABLET PO (09:36)
[2020-07-26] MEDS: SPIRONOLACTONE 25 MG TABLET PO (09:36)
[2020-07-26] MEDS: METOPROLOL TARTRATE 12.5 MG TABLET PO ×2 (09:37→17:11)
[2020-07-26] MEDS: PANTOPRAZOLE 40 MG TABLET PO (09:37)
[2020-07-26] MEDS: ALVIMOPAN 12 MG CAPSULE PO ×2 (12:18→20:56)
[2020-07-26] MEDS: polyethylene glycoL 3350 17 GM POWD.PACK PO ×2 (13:29→17:12)
--- NOTE | 2020-07-26 15:13 | PM.IMPN ---
Progress Note: A&P Assessment and Plan (1) Cecal volvulus: Code(s): K56.2 - Volvulus Status: Acute Assessment and Plan: Patient presented with severe abdominal cramping. CT a/p showed probable cecal volvulus. She underwent laparoscopic right colectomy with ileotransverse anastomosis on 07/25/[address] Russell. She tolerated the procedure well. General surgery is following and input is appreciated Continue full liquids. Advance diet per General surgery. IV fluids discontinued. Patient is eating and drinking appropriately. Analgesics and antiemetics as needed. Continue Protonix (2) Paroxysmal atrial fibrillation: Code(s): I48.0 - Paroxysmal atrial fibrillation Status: Chronic Assessment and Plan: Rate is controlled. Patient is established with Dr. Desai. She is on long-term Xarelto. Cardiology consulted for surgical risk assessment and is following. Input is appreciated. 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 Xarelto on hold. Resume when safe to do so from surgical standpoint (4) Hypertension: Code(s): I10 - Essential (primary) hypertension Status: Chronic Assessment and Plan: Pressure evaluated today and is well controlled at 131/58. Continue lisinopril, metoprolol, and spironolactone Monitor BP daily. (5) Obstructive sleep apnea: Code(s): G47.33 - Obstructive sleep apnea (adult) (pediatric) Status: Chronic Assessment and Plan: Chronic. Maintained on CPAP nightly. CPAP titrated to home settings Subjective Date/time seen: 07/26/20 15:13 Interval history: Date of service: 07/26/2020 Nasreen Garcia is a 65 year old female with history of atrial fibrillation and hypertension who is seen in follow-up for cecal volvulus. She underwent surgery 07/25 and tolerated the procedure well. she is feeling well today. She is up and walking around her room. She is complaining of abdominal bloating. she has not had a bowel movement or passed gas yet. she reports abdominal soreness especially with movement or cough. she still complains of sore throat secondary to her NG tube. She is tolerating full liquids. No fevers, chills, nausea, vomiting, dizziness, lightheadedness, shortness of breath, cough, chest pain. Review of Systems Review of Systems: All systems reviewed & are unremarkable except as noted in HPI and below Exam Narrative: Exam Narrative: Ms. Garcia is a thin, well-nourished 65-year-old female who is lying semi-recumbent in bed. She appears comfortable and is in NARD. HR 60, BP 131/58, RR 20, T 97.9?, 99% on room air Neuro: awake, alert and oriented x4, speech clear, no focal neuro deficits noted HEENMT: normocephalic, atraumatic, EOMI, sclerae anicteric, moist oral mucosa, tongue midline, nares patent Neck: supple, no lymphadenopathy Respiratory: clear to auscultation bilaterally, nonlabored breathing Cardio: regular rate, regular rhythm with S1-S2 Abdomen: distended, normoactive bowel sounds, soft, nontender to palpation, no rigidity or guarding, no rebound tenderness Extremities: no edema, erythema, cyanosis, clubbing, or tenderness to palpation, DP pulses 2+ bilaterally Skin: midline surgical scar, no rashes or lesions, warm and dry Psych: appropriate mood and affect, judgment and insight intact Objective Data Vital Signs Vital Signs: Vital Signs - 24 hr 07/25/20 16:23 07/25/20 20:00 07/25/20 20:30 Temperature 100.1 F H 99.4 F Pulse Rate 80 Respiratory Rate 20 Blood Pressure 115/56 L 127/53 L Pulse Oximetry 100 07/26/20 00:00 07/26/20 02:30 07/26/20 04:00 Temperature 100.3 F H 99.8 F H 97.6 F Pulse Rate 82 60 Respiratory Rate 20 20 Blood Pressure 117/57 L 128/54 L Pulse
--- NOTE | 2020-07-26 17:19 | WPDANESPN ---
Anes - Prog Note Post-Op Date/Time: 07/26/20 17:19 Cardiovascular status: normal Respiratory status: normal Airway patency: baseline Mental status: baseline Post-Op hydration status: normal Vital Signs: Last Vital Signs Temp 36.4 C L 07/26/20 14:00 Pulse 62 07/26/20 17:11 Resp 20 07/26/20 14:00 BP 130/61 07/26/20 14:00 Pulse Ox 100 07/26/20 14:00 Pain Score (VAS): 0 I/O: Intake & Output 07/26/20 07/26/20 07/26/20 07:59 15:59 23:59 Intake Total 1600 1080 800 Output Total 1600 1100 Balance 0 1080 -300 Laboratory Tests 07/26/20 05:36 07/26/20 05:36 07/26/20 07/26/20 05:36 05:36 WBC 12.2 H RBC 4.14 L Hgb 14.7 Hct 41.9 MCV 101.2 H MCH 35.5 H MCHC 35.1 RDW 11.9 Plt Count 185 MPV 9.7 Immature Gran % (Auto) 0.5 Neut % (Auto) 81.8 H Lymph % (Auto) 9.9 L [place] % (Auto) 7.5 Eos % (Auto) 0.1 Baso % (Auto) 0.2 Lymph # (Auto) 1.20 [place] # (Auto) 0.9 H Eos # (Auto) 0.0 Baso # (Auto) 0.0 Abs Immat Gran (auto) 0.06 H Absolute Neuts (auto) 10.0 H Absolute Nucleated RBC 0.0 Nucleated RBC % 0.0 Sodium 136 L Potassium 3.8 Chloride 102 Carbon Dioxide 30 Anion Gap 4 L BUN 12 Creatinine 0.80 Estim Creat Clear Calc 50 Estimated GFR > 60 Glucose 114 H Calcium 8.2 L Post-procedural complaints: none Patient Feedback: Patient satisfied with anesthetic care.
[2020-07-26] MEDS: ESCITALOPRAM OXALATE 10 MG TABLET 20 MG PO (20:56)
[2020-07-27] MEDS: IBUPROFEN 400 MG TABLET PO (05:44)
[2020-07-27 06:00] VITALS: BP 139/52; PULSE 60; RESP 20; TEMP 36.7; O2SAT 98
[2020-07-27 06:43] LABS: Basophils Percent Auto 0.1 % (0.2-1.2); Eosinophils Absolute Auto 0.1 K/mm3 (0-0.3); Eosinophils Percent Auto 1.3 % (0-4.4); Hemoglobin 13.4 g/dL (12.0-15.0); Immature Granulocyte Absolute 0.02 K/mm3 (0.00-0.031); Immature Granulocyte Percent A 0.3 % (0-0.5); Lymphocytes Absolute Auto 0.92 K/mm3 (0.9-3.2); Lymphocytes Percent Auto 12.4 % (18.3-44.2); Mean Corpuscular HGB Conc 34.4 g/dl (32-36); Mean Corpuscular Hemoglobin 35.8 pg (26-34); Mean Corpuscular Volume 104.3 fl (80-100); Mean Platelet Volume 9.8 fl (7.4-10.4); Monocytes Absolute Auto 0.6 K/mm3 (0.1-0.6); Neutrophils Absolute Auto 5.8 K/mm3 (1.3-6.7); Neutrophils Percent Auto 77.9 % (45.5-73.1); Platelet Count Result 173 k/mm3 (150-375); Red Blood Count 3.74 M/mm3 (4.2-5.4); Red Cell Distribution Width 11.9 % (11.5-14.5); White Blood Count 7.4 K/mm3 (4.5-10.0)
[2020-07-27 06:56] LABS: Anion Gap 4 mmol/L (8-16); Blood Urea Nitrogen 10 mg/dL (7-17); Calcium 8.3 mg/dL (8.4-10.2); Carbon Dioxide 30 mmol/L (22-30); Chloride 104 mmol/L (98-107); Estimated CRCL calculation 50 ml/min; Estimated Glomerular Filt Rate > 60; Glucose 99 mg/dL (65-105); Potassium 3.9 mmol/L (3.4-5.0); Sodium 138 mmol/L (137-145)
[2020-07-27] MEDS: polyethylene glycoL 3350 17 GM POWD.PACK PO (07:39)
[2020-07-27 08:32] VITALS: PULSE 60
[2020-07-27] MEDS: ENOXAPARIN 40 MG/0.4 ML SYRINGE SUB-Q (08:32)
[2020-07-27] MEDS: lisinopriL 10 MG TABLET PO (08:32)
[2020-07-27] MEDS: ALVIMOPAN 12 MG CAPSULE PO (08:32)
[2020-07-27] MEDS: METOPROLOL TARTRATE 12.5 MG TABLET PO (08:32)
[2020-07-27] MEDS: PANTOPRAZOLE 40 MG TABLET PO (08:33)
[2020-07-27] MEDS: SPIRONOLACTONE 25 MG TABLET PO (08:33)
--- NOTE | 2020-07-27 10:31 | PM.PNGS ---
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 Russell in 1-2 weeks (2) Paroxysmal atrial fibrillation: Code(s): I48.0 - Paroxysmal atrial fibrillation Status: Chronic Assessment and Plan: OK to resume Xarelto on Tuesday Subjective Subjective Date/Time Seen: 07/27/20 10:31 Still bloated, but no nausea or vomiting. Bowels moved and she is passing flatus. Pain controlled. Exam GI: Inspection: other (mildly distended) GI Palp: Yes Soft to palpation, No Tenderness to palpation present (GI) and No Guarding due to palpation present (GI) Auscultation: normal bowel sounds Objective Data Vital Signs Vital Signs: Vital Signs - 24 hr 07/26/20 12:00 07/26/20 14:00 07/26/20 17:11 Temperature 36.4 C L 36.4 C L Pulse Rate 56 L 54 L 62 Respiratory Rate 20 20 Blood Pressure 128/61 130/61 Pulse Oximetry 100 100 07/26/20 18:00 07/26/20 22:15 07/27/20 06:00 Temperature 36.7 C 37.0 C 36.7 C Pulse Rate 66 55 L 60 Respiratory Rate 20 16 20 Blood Pressure 121/52 L 124/62 139/52 L Pulse Oximetry 99 97 98 07/27/20 08:32 Temperature Pulse Rate 60 Respiratory Rate Blood Pressure Pulse Oximetry Intake/Output Intake/Output: Intake & Output 07/24/20 07/25/20 07/26/20 07/27/20 23:59 23:59 23:59 23:59 Intake Total 3000 2230 4200 1270 Output Total 5780 127 1838 Balance 1100 1530 1500 1270 Meds/Results Medications: Active Medications Generic Name Dose Route Start Last Admin Trade Name Freq PRN Reason Stop Dose Admin Hydrocodone Bitart/Acetaminophen 1 tab 07/25/20 13:18 07/26/20 21:04 Hydrocodone/Acetaminophen (*Crx) 5-325 Mg Tablet PO 1 tab Q4H PRN Administration Pain Rated 4-6 Hydrocodone Bitart/Acetaminophen 1 tab 07/25/20 13:18 Hydrocodone/Acetaminophen (*Crx) 7.5-325 Mg Tablet PO Q4H PRN Pain Rated 7-10 Alvimopan 12 mg 07/26/20 12:16 07/27/20 08:32 Alvimopan 12 Mg Capsule PO 08/02/20 12:17 12 mg Q12HR OMER Administration Enoxaparin Sodium 40 mg 07/26/20 09:00 07/27/20 08:32 Enoxaparin 40 Mg/0.4 Ml Syringe SUB-Q 40 mg DAILY OMER Administration Escitalopram Oxalate 20 mg 07/25/20 21:00 07/26/20 20:56 Escitalopram Oxalate 10 Mg Tablet PO 20 mg HS OMER Administration Ibuprofen 400 mg 07/25/20 13:18 07/27/20 05:44 Ibuprofen 400 Mg Tablet PO 400 mg Q6H PRN Administration Pain Rated 1-3 Lisinopril 10 mg 07/26/20 09:00 07/27/20 08:32 Lisinopril 10 Mg Tablet PO 10 mg DAILY OMER Administration Metoprolol Tartrate 12.5 mg 07/25/20 17:00 07/27/20 08:32 Metoprolol Tartrate 12.5 Mg Tablet PO 12.5 mg BID OMER Administration Morphine Sulfate 1 mg 07/25/20 13:18 Morphine Sulfate (*Crx) 2 Mg/Ml Inj IV PUSH Q2H PRN Pain Rated 4-6 Morphine Sulfate 2 mg 07/25/20 13:18 Morphine Sulfate (*Crx) 4 Mg/Ml Inj IV PUSH Q2H PRN Pain Rated 7-10 Nonformulary Dru each 07/26/20 09:00 07/27/20 08:33 Finasteride 2.5 Mg PO 08/25/20 09:01 1 each Tab DAILY OMER Administration Ondansetron HCl 4 mg 07/25/20 13:18 Ondansetron Inj 4 Mg/2 Ml Vial IV PUSH Q4H PRN Nausea And Vomiting Pantoprazole Sodium 40 mg 07/26/20 09:00 07/27/20 08:33 Pantoprazole 40 Mg Tablet PO 40 mg QAM OMER Administration Phenol 1 spray 07/25/20 16:45 Phenol/Sod Pheno [place] (*Bkc) MUCOUS MEM PRN PRN Sore Throat Polyethylene Glycol 17 gm 07/26/20 13:19 07/27/20 07:39 Polyethylene Glycol 3350 17 Gm Powd.Pack PO 17 gm QAM PRN Administration Constipation Spironolactone 25 mg 07/26/20 09:00 07/27/20 08:33 Spironolactone 25 Mg Tablet PO 25 mg DAILY OMER Administration Radiology Results: ITS Impressions Chest X-Ray 07/24/
--- NOTE | 2020-07-27 11:17 | PM.PNCARD ---
Progress Note: A&P Assessment and Plan (1) Paroxysmal atrial fibrillation: Code(s): I48.0 - Paroxysmal atrial fibrillation Status: Chronic Assessment and Plan: patient has remained in Sinus rhythm. She is stable from cardiovascular standpoint. Resume anticoagulation with rivaroxaban when safe from surgical standpoint. Outpatient follow-up with Dr. Desai. 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 Postoperative care as per surgery Subjective Date/time seen: 07/27/20 11:17 date of service 07/27/2020- patient is status post laparoscopic right colectomy with ileotransverse anastomosis for cecal volvulus. She denies any cardiovascular symptoms including chest pain, palpitation, shortness of breath. Exam Narrative: Exam Narrative: PHYSICAL EXAMINATION: GENERAL: Alert, oriented, no acute distress MENTAL STATUS: affect appropriate to mood EYES: Extraocular movements intact, no pallor EARS: External ears appear normal, hearing grossly normal NOSE: Normal and patent, no discharge MOUTH: Mucous membranes moist, tongue normal NECK: Supple, no JVD CHEST: Good respiratory effort, clear to auscultation HEART: Normal rate, regular rhythm, normal S1 and S2 ABDOMEN: Surgical wounds present, no bleeding NEUROLOGICAL: Alert, oriented, normal speech, no gross motor deficits MUSCULOSKELETAL: No major deformity, no amputation EXTREMITIES: No pedal edema, no clubbing, no cyanosis SKIN: no rash on the exposed area, no cyanosis PSYCHIATRIC: Normal mood, appropriate affect Objective Data Vital Signs Vital Signs: Vital Signs - 24 hr 07/26/20 12:00 07/26/20 14:00 07/26/20 17:11 Temperature 36.4 C L 36.4 C L Pulse Rate 56 L 54 L 62 Respiratory Rate 20 20 Blood Pressure 128/61 130/61 Pulse Oximetry 100 100 07/26/20 18:00 07/26/20 22:15 07/27/20 06:00 Temperature 36.7 C 37.0 C 36.7 C Pulse Rate 66 55 L 60 Respiratory Rate 20 16 20 Blood Pressure 121/52 L 124/62 139/52 L Pulse Oximetry 99 97 98 07/27/20 08:32 Temperature Pulse Rate 60 Respiratory Rate Blood Pressure Pulse Oximetry Intake/Output Intake/Output: Intake & Output 07/24/20 07/25/20 07/26/20 07/27/20 23:59 23:59 23:59 23:59 Intake Total 3000 2230 4200 1270 Output Total 7251 348 7396 Balance 1100 1530 1500 1270 Meds/Results Medications: Active Medications Generic Name Dose Route Start Last Admin Trade Name Freq PRN Reason Stop Dose Admin Hydrocodone Bitart/Acetaminophen 1 tab 07/25/20 13:18 07/26/20 21:04 Hydrocodone/Acetaminophen (*Crx) 5-325 Mg Tablet PO 1 tab Q4H PRN Administration Pain Rated 4-6 Hydrocodone Bitart/Acetaminophen 1 tab 07/25/20 13:18 Hydrocodone/Acetaminophen (*Crx) 7.5-325 Mg Tablet PO Q4H PRN Pain Rated 7-10 Alvimopan 12 mg 07/26/20 12:16 07/27/20 08:32 Alvimopan 12 Mg Capsule PO 08/02/20 12:17 12 mg Q12HR OMER Administration Enoxaparin Sodium 40 mg 07/26/20 09:00 07/27/20 08:32 Enoxaparin 40 Mg/0.4 Ml Syringe SUB-Q 40 mg DAILY OMRE Administration Escitalopram Oxalate 20 mg 07/25/20 21:00 07/26/20 20:56 Escitalopram Oxalate 10 Mg Tablet PO 20 mg HS OMER Administration Ibuprofen 400 mg 07/25/20 13:18 07/27/20 05:44 Ibuprofen 400 Mg Tablet PO 400 mg Q6H PRN Administration Pain Rated 1-3 Lisinopril 10 mg 07/26/20 09:00 07/27/20 08:32 Lisinopril 10 Mg Tablet PO 10 mg DAILY OMER Administration Metoprolol Tartrate 12.5 mg 07/25/20 17:00 07/27/20 08:32 Metoprolol Tartrate 12.5 Mg Tablet PO 12.5 mg BID OMER Administration Morphine Sulfate 1 mg 07/25/20 13:18 Morphine Sulfate (*Crx) 2 Mg/Ml Inj IV PUSH Q2H PRN Pain Rated 4-6 Morphine Sulfate 2 mg 07/25/20 13:18 Morphine Sulfate (*Crx) 4 Mg/Ml Inj IV PUSH Q2H PRN P
[2020-07-27 14:00] VITALS: BP 141/62; PULSE 55; RESP 16; TEMP 36.7; O2SAT 99
--- NOTE | 2020-07-27 14:17 | PM.DS ---
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 CT a/p showed probable cecal volvulus. She underwent laparoscopic right colectomy with ileotransverse anastomosis on 07/25/[address] Russell. She tolerated the procedure well. She was able to tolerate a soft diet, which she should continue for 2 weeks. Her bowel function returned. She will need to follow up with Dr. Russell in 1-2 weeks. (2) Paroxysmal atrial fibrillation: Code(s): I48.0 - Paroxysmal atrial fibrillation Status: Chronic Assessment and Plan: Rate remained controlled. Patient is established with Dr. Desai. She is on long-term Xarelto, which was held perioperatively. Xarelto will be resumed on 07/28/20 and she will continue metoprolol. (3) Chronic anticoagulation: Code(s): Z79.01 - ferry terminal supervisor (current) use of anticoagulants Status: Chronic Assessment and Plan: Xarelto held prior to surgery. Will be resumed on 07/28/20 as noted above per surgical recommendations. (4) Hypertension: Code(s): I10 - Essential (primary) hypertension Status: Chronic Assessment and Plan: Blood pressures were monitored closely and remained well controlled. Continue lisinopril, metoprolol, and spironolactone (5) Obstructive sleep apnea: Code(s): G47.33 - Obstructive sleep apnea (adult) (pediatric) Status: Chronic Assessment and Plan: Chronic. Maintained on CPAP nightly. DS: Summary Hospital Course Reason for hospitalization: Cecal volvulus Hospital Course: date of admission: 07/24/2020 date of discharge: 07/27/2020 Nasreen Garcia is a 65 year old female with history of atrial fibrillation and hypertension who presented to the emergency department on 07/24/2020 with complaints of abdominal cramping proceeded by approximately 4-5 months of abdominal distension. Upon presentation to the ED, vital signs were stable, CBC within normal limits, electrolytes stable, and CT a/p showed probable cecal volvulus. NG tube was placed. she was admitted to hospitalist service and was seen in consultation by general surgery and Cardiology. Please see above for further details. She underwent laparoscopic right colectomy with ileotransverse anastomosis on 07/25/2020 and tolerated the procedure well. Her pain was well controlled. She was able to tolerate a soft diet and her bowel function returned. She began feeling much better and was you for discharge home. Given her overall improvement, she was determined to no longer require inpatient care and was felt to be stable for discharge. She will need to follow-up with Dr. Russell in 2 weeks and continue a soft diet. we discussed worrisome signs and symptoms for which to return and she was educated on her medications. She was discharged in hemodynamically stable condition on 07/27/2020. Status at Discharge Functional status at discharge: independent ambulation Overall status at discharge: patient is progressing back to baseline Time Spent with Patient Time attestation: Total time spent providing and/or coordinating discharge services: 45 minutes Time spent: Greater than 30 minutes Exam Narrative: Exam Narrative: Ms. Garcia is a thin, well-nourished 65-year-old female who is up walking around her room. She appears comfortable and is in NARD. HR 60, BP 139/52, R 20, T 98.1?, 98% on room air Neuro: awake, alert and oriented x4, speech clear, no focal neuro deficits noted HEENMT: normocephalic, atraumatic, EOMI, sclerae anicteric, moist oral mucosa, tongue midline, nares patent Neck: supple, no lymphadenopathy Respiratory: clear to auscultation bilaterally, nonlabored breathing Cardio: regular rate, regular rhythm with S1-S2 Abdomen: mildl
== END 2020-07-27 15:15 | disposition home or self-care (01) | DRG 331 ==
LOC: ANHED 07-24 03:03 → ANH3MEDSUR 07-24 04:03
PROVIDERS: Physician Assistant; Surgery; Admitting Provider Family Medicine; Emergency Provider Emergency Medicine; PCP Family Medicine; Visit Provider Internal Medicine
PROC: 0DTF4ZZ Resection of Right Large Intestine, Percutaneous Endoscopic Approach (ICD-10-PCS; CPT 44204; principal; 2020-07-25 09:00)
DX: K56.2 Volvulus (principal); I48.0 Paroxysmal atrial fibrillation; I10 Essential (primary) hypertension; G47.33 Obstructive sleep apnea (adult) (pediatric); Z79.01 Long term (current) use of anticoagulants; Z90.710 Acquired absence of both cervix and uterus
CPT/HCPCS: 36415; 71046; 74018; 74177; 80048; 80053; 81001; 83605; 83690; 85025; 85027; 86850; 86900; 86901; 88307; 93005; 96361; 96374; 96375; 99285; A9270; G0378; J1170; J1650; J2250; J2270; J2405; J3010; J7030; J7120; Q9967

== ENCOUNTER 2020-07-28 17:56 | Inpatient (IN) | payer MEDICARE, SELFPAY ==
[2020-07-28] VITALS (8 sets, daily range): BP systolic 122–183; BP diastolic 46–95; PULSE 65–82; RESP 15–18; TEMP 36.6–36.7; O2SAT 98–99; BMI 21.2
--- NOTE | ~2020-07-28 | XR_ITS ---
EXAMINATION: XR abdomen NG/feed tube insert EXAM DATE: 07/29/2020 13:29 INDICATION: Nasogastric tube placement. TECHNIQUE: Frontal projection(s) of the abdomen for interpretation. Comparison is made to prior exami nation from earlier same date. FINDINGS: There is a feeding tube in the stomach, extending to the gastric body and then returning ba ck up toward the cardia. This is adequate but tip potentially could return of the esophagus at some p oint, tube could be safely retracted 5-10 cm. Moderate amount of contrast and fluid within the stomach. Some dilated air-filled bowel over the mid abdomen. IMPRESSION: Feeding tube tip in stomach but could be safely retracted 5-10 cm which might drop tip f rom the cardia to the gastric body. Reviewed, dictated and finalized at location A. TECHNOLOGIST IMPRESSION: Feeding tube tip in stomach but could be safely retracted 5-10 cm which might drop tip from the cardia to the gastric body.
--- NOTE | ~2020-07-28 | XR_ITS ---
EXAMINATION: XR abdomen/kub 1V DATE: 08/01/2020 06:21 INDICATION: Small bowel obstruction. TECHNIQUE: A supine view of the abdomen on 2 radiographs was obtained. COMPARISON: Small bowel series 07/31/2020 FINDINGS: There are numerous dilated loops of small bowel containing oral contrast. The colon is deco mpressed. IMPRESSION: 1. Small bowel obstruction. Reviewed, dictated and finalized at location A. LING FIELD PROFESSIONAL IMPRESSION: 1. Small bowel obstruction.
--- NOTE | ~2020-07-28 | XR_ITS ---
EXAMINATION: XR sm bowel follow through WS EXAM DATE: 07/31/2020 13:20 INDICATION: Small bowel obstruction. TECHNIQUE: Parts Lister radiograph was acquired. Small bowel series was performed with with water-soluble Omnipaque solution. Spot images of the terminal ileum were acquired. Fluoroscopy time of 0.0 minutes with 7 KUB images obtained. FINDINGS: 15 minute image shows contrast in the stomach and duodenum. On the 45 minute image contrast is within multiple loops of moderately to severely distended jejunum and ileum, which appears essent ially unchanged over the next 3.5 hours of images. Exam was ended at that time, contrast never reachi ng the colon. Appearance is consistent with small bowel obstruction. IMPRESSION: Small bowel obstruction. Reviewed, dictated and finalized at location A. OW GLAZIER HELPER IMPRESSION: Small bowel obstruction.
--- NOTE | ~2020-07-28 | XR_ITS ---
EXAMINATION: XR abdomen NG/feed tube insert DATE: 07/30/2020 10:53 INDICATION: Nasogastric tube repositioning. TECHNIQUE: A supine view of the abdomen was obtained. COMPARISON: Abdomen single view at 6:47 AM FINDINGS: The lower abdomen is excluded. There are dilated loops of small bowel. The nasogastric tube tip is in the stomach. IMPRESSION: 1. Nasogastric tube tip in the stomach. 2. Dilated small bowel, consistent with small bowel obstruction versus postoperative adynamic ileus. Reviewed, dictated and finalized at location A. RAL SCIENCE MANAGER IMPRESSION: 1. Nasogastric tube tip in the stomach. 2. Dilated small bowel, consistent with small bowel obstruction versus postoper ative adynamic ileus.
--- NOTE | ~2020-07-28 | XR_ITS ---
EXAMINATION: XR abdomen obstructive series DATE: 07/28/2020 21:09 INDICATION: Nausea and diarrhea post recent bowel resection TECHNIQUE: Frontal supine and upright views of the abdomen were obtained. COMPARISON: None. FINDINGS: Suture line in the left hemipelvis. Air-fluid levels in loops of nondilated colon and small bowel in the right abdomen. There is also small amount of gas in the stomach. No free intraperitoneal gas. Vis ualized portions of the lungs are clear. Cardiomediastinal silhouette is normal. Bone islands at the bilateral inferior pubic rami and right iliac crest. No dilated gas-filled loops of bowel. No free i ntraperitoneal gas. Visualized lung bases are clear. IMPRESSION: 1. No free intraperitoneal gas or dilated gas-filled loops of bowel to suggest obstruction. Reviewed, dictated and finalized at [facility]. OSSER
--- NOTE | ~2020-07-28 | XR_ITS ---
EXAMINATION: XR abdomen NG/feed tube rechec EXAM DATE: 07/29/2020 16:06 INDICATION: check repositioned NG tube TECHNIQUE: Frontal projection(s) of the abdomen for interpretation. There is no prior study for jo han. FINDINGS: Feeding tube is in position, less redundancy than on prior study. Compared to prior study, the stomach contents has been evacuated. Several loops of air-filled dilated small bowel in the upper abdomen, obstruction or ileus. Lung bases unremarkable. IMPRESSION: 1. Feeding tube in position. 2. Decompressed stomach. 3. Dilated small bowel, ileus or obstruction. Reviewed, dictated and finalized at location A. UCT DEVELOPMENT ACTUARY
--- NOTE | ~2020-07-28 | XR_ITS ---
EXAMINATION: XR abdomen NG/feed tube insert EXAM DATE: 07/30/2020 13:47 INDICATION: ng tube placement. TECHNIQUE: Frontal upright projection(s) of the abdomen for interpretation. Comparison is made to nayely or examination from 07/30/2020. FINDINGS: Feeding tube is in position. There are multiple loops of moderately dilated small bowel wi th air-fluid levels, obstruction versus ileus. No evidence of free intraperitoneal gas. Paucity of co lonic stool and gas. IMPRESSION: 1. Feeding tube in position. 2. Moderately distended small bowel with air-fluid levels. Reviewed, dictated and finalized at location A. P UNDERWRITER
--- NOTE | ~2020-07-28 | XR_ITS ---
EXAMINATION: XR abdomen/kub 1V DATE: 07/31/2020 05:40 INDICATION: Small bowel obstruction. TECHNIQUE: A supine view of the abdomen on 2 radiographs was obtained. COMPARISON: Abdomen radiograph 07/30/2020 FINDINGS: There are no dilated loops of bowel. The nasogastric tube tip is in the stomach. IMPRESSION: 1. Nonobstructive bowel gas pattern. Reviewed, dictated and finalized at location A. RVISOR SHUTTLE VENEERING
--- NOTE | ~2020-07-28 | XR_ITS ---
EXAMINATION: XR abdomen NG/feed tube rechec DATE: 07/30/2020 06:50 INDICATION: Nasogastric tube repositioning. TECHNIQUE: An upright view of the abdomen was obtained. COMPARISON: Abdomen single view at 5:04 AM FINDINGS: There are multiple dilated loops of small bowel. The colon is decompressed. No free intrape ritoneal gas. The nasogastric tube tip is in the stomach. IMPRESSION: 1. Nasogastric tube tip in the stomach. 2. Dilated small bowel, consistent with small bowel obstruction versus postoperative adynamic ileus. Reviewed, dictated and finalized at location A. ITY ACCOUNTS DIRECTOR IMPRESSION: 1. Nasogastric tube tip in the stomach. 2. Dilated small bowel, consistent with small bowel obstruction versus postoper ative adynamic ileus.
--- NOTE | ~2020-07-28 | XR_ITS ---
EXAMINATION: XR abdomen/kub 1V DATE: 07/30/2020 06:06 INDICATION: Small bowel obstruction. TECHNIQUE: A supine view of the abdomen on 2 radiographs was obtained. COMPARISON: CT abdomen and pelvis 07/29/2020 FINDINGS: There are multiple dilated loops of small bowel. The colon is decompressed. The nasogastric tube tip is in the stomach. IMPRESSION: 1. Dilated small bowel, consistent with small bowel obstruction versus postoperative adynamic ileus. Reviewed, dictated and finalized at location A. OLOGY TEACHER IMPRESSION: 1. Dilated small bowel, consistent with small bowel obstruction versus postoper ative adynamic ileus.
--- NOTE | ~2020-07-28 | CT_ITS ---
EXAMINATION: CT abdomen pelvis w con DATE: 07/29/2020 07:26 INDICATION: Nausea. Diarrhea. TECHNIQUE: Computed tomography (CT) of the abdomen and pelvis was performed with 100 mL Omnipaque 350 intravenous contrast. Automated exposure control and iterative reconstruction technique were employe d. The dose-length product was 223.00 mGy-cm. COMPARISON: CT abdomen and pelvis 07/24/2020 FINDINGS: The visualized portions of the lung bases demonstrate mild atelectasis. There are trace ple ural effusions. The heart size is normal. No pericardial effusion. There is an 8 mm cyst in the liver . The gallbladder, spleen, pancreas, adrenal glands, and kidneys are normal. There are multiple dilat ed loops of small bowel with focal transition point at the midline. There are changes of right hemico lectomy. There is a moderate volume of ascites. There are no pathologically enlarged lymph nodes. The re are foci of free intraperitoneal gas, consistent with recent surgery. There are a few scattered be nign bone islands in the pelvis and proximal right femur. There is a 12 mm sclerotic lesion in right sacral ala. IMPRESSION: 1. Dilated small bowel with transition point at the midline, consistent with small bowel obstruction versus postoperative adynamic ileus. 2. Moderate volume of ascites. 3. 12 mm sclerotic lesion in right sacral ala, which may be benign or metastatic disease. Bone scan i s recommended. Reviewed, dictated and finalized at location A. L PRESSER IMPRESSION: 1. Dilated small bowel with transition point at the midline, consistent with sm all bowel obstruction versus postoperative adynamic ileus. 2. Moderate volume of ascites. 3. 12 mm sclerotic lesion in right sacral ala, which may be benign or metastati c disease. Bone scan is recommended.
--- NOTE | ~2020-07-28 | XR_ITS ---
EXAMINATION: XR UGI water soluble w sbs EXAM DATE: 07/29/2020 12:09 INDICATION: possible small bowel obstruction. TECHNIQUE: Omnipaque water solution was used for this examination. There are 3 KUB images with fluor oscopic time of 0.0 minutes. Correlation is made to CT abdomen same date. FINDINGS: At the beginning of examination patient was nauseated and vomiting. The nurse then came do wn and gave Zofran to the patient. She was unable to tolerate about 100 mL of contrast water solution which mixed with an already distended stomach, correlating with prior CT. Patient was able to hold this down and laid on her right side down for one hour which should facilita te dumping into the small bowel. Only trace amounts of contrast within normal caliber jejunum on the 1 hour image, almost all of the contrast and fluid remaining in patient's stomach at that time. There are loops of significantly distended air-filled mid small bowel identified on the examination which never opacified with contrast. Exam was ended at this time. IMPRESSION: 1. Almost all of ingested contrast remaining in patient's stomach at 1 hours time. We can obtain a fo llow-up KUB this afternoon if requested, if patient able to retain contrast. 2. Significantly distended air-filled small bowel loops which did not opacify at 1 hour. Reviewed, dictated and finalized at location A. FING DIRECTOR IMPRESSION: 1. Almost all of ingested contrast remaining in patient's stomach at 1 hours ti me. We can obtain a follow-up KUB this afternoon if requested, if patient able to retain contrast. 2. Significantly distended air-filled small bowel loops which did not opacify a t 1 hour.
[2020-07-28 18:39] LABS: Basophils Percent Auto 0.3 % (0.2-1.2); Hematocrit 42.4 % (37.0-47.0); Hemoglobin 15.2 g/dL (12.0-15.0); Immature Granulocyte Absolute 0.03 K/mm3 (0.00-0.031); Immature Granulocyte Percent A 0.4 % (0-0.5); Lymphocytes Absolute Auto 0.37 K/mm3 (0.9-3.2); Lymphocytes Percent Auto 5.2 % (18.3-44.2); Mean Corpuscular HGB Conc 35.8 g/dl (32-36); Mean Corpuscular Hemoglobin 35.5 pg (26-34); Mean Corpuscular Volume 99.1 fl (80-100); Mean Platelet Volume 9.5 fl (7.4-10.4); Monocytes Absolute Auto 0.2 K/mm3 (0.1-0.6); Monocytes Percent Auto 2.8 % (2.6-8.5); Neutrophils Absolute Auto 6.5 K/mm3 (1.3-6.7); Neutrophils Percent Auto 91.3 % (45.5-73.1); Platelet Count Result 196 k/mm3 (150-375); Red Blood Count 4.28 M/mm3 (4.2-5.4); Red Cell Distribution Width 11.6 % (11.5-14.5); White Blood Count 7.2 K/mm3 (4.5-10.0)
[2020-07-28 20:47] LABS: Alanine Aminotransferase 36 U/L (4-35); Albumin Level 3.8 g/dL (3.5-5.1); Alkaline Phosphatase 51 U/L (38-126); Anion Gap 7 mmol/L (8-16); Aspartate Amino Transferase 46 U/L (14-36); Bilirubin,Total 0.9 mg/dL (0.2-1.3); Blood Urea Nitrogen 15 mg/dL (7-17); Calcium 8.9 mg/dL (8.4-10.2); Carbon Dioxide 30 mmol/L (22-30); Chloride 99 mmol/L (98-107); Estimated CRCL calculation 57 ml/min; Estimated Glomerular Filt Rate > 60; Glucose 130 mg/dL (65-105); Lipase 69 U/L (23-300); Potassium 4.3 mmol/L (3.4-5.0); Sodium 136 mmol/L (137-145)
[2020-07-28] MEDS: LACTATED RINGERS 1,000 ML 999 ML IV CONT (20:59)
[2020-07-28] MEDS: ONDANSETRON INJ 4 MG/2 ML VIAL IV PUSH (20:59)
--- NOTE | 2020-07-28 22:20 | ED.GENADULT ---
HPI - General Adult General Chief complaint: Unspecified Stated complaint: post op comp Time Seen by Provider: 07/28/20 20:26 Source: patient Mode of arrival: ambulatory Limitations: no limitations History of Present Illness HPI narrative: 65-year-old female She is 5 days postop from a right hemicolectomy done here due to a cecal volvulus She notes that she never felt quite right postoperatively and felt like her usually flat belly continued to feel bloated even as she wanted to be discharged a day ago Since going home she has had a poor appetite today, and she has had several smallish watery brownish-red stools She was taking [id number] meds for pain which she is finding to be insufficient No vomiting and does not have a fever Related Data Home Medications Medication Instructions Recorded Confirmed Xarelto 20 mg PO HS 07/24/20 07/24/20 escitalopram oxalate 20 mg PO HS 07/24/20 07/24/20 finasteride 2.5 mg PO DAILY 07/24/20 07/24/20 lisinopril 10 mg PO DAILY 07/24/20 07/24/20 metoprolol tartrate 12.5 mg PO BID 07/24/20 07/24/20 spironolactone 25 mg PO DAILY 07/24/20 07/24/20 Allergies Allergy/AdvReac Type Severity Reaction Status Date / Time Penicillins Allergy Intermediate HIVES Verified 07/25/20 08:59 latex Allergy Mild RASH Verified 07/25/20 08:59 Review of Systems Review of Systems: All systems reviewed & are unremarkable except as noted in HPI and below Constitutional: Constitutional: Denies chills, Reports fatigue, Denies fever(s), Denies headache(s), Reports poor appetite and Reports weakness Eyes: Eyes: Reports no additional eye complaints and Denies change in vision ENT: Denies headache(s), Denies epistaxis, Denies nasal congestion and Denies sore throat Cardiovascular: Cardiovascular: Denies chest pain, Denies leg edema, Denies palpitations and Denies dyspnea Respiratory: Respiratory: Denies cough, Denies dyspnea and Denies wheezing Gastrointestinal: Gastrointestinal: Reports abdominal pain, Denies melena, Reports bloating, Reports change in bowel habits, Reports loose stools, Reports nausea and Denies vomiting Genitourinary: Genitourinary: Denies hematuria, Denies urinary frequency and Denies dysuria Musculoskeletal: Musculoskeletal: Denies deformity, Denies arthralgias, Denies joint swelling, Denies muscle weakness and Denies numbness Integumentary/Breasts: Skin/Breast: Denies rash and Denies wounds Neurologic: Denies headache(s), Denies focal weakness, Denies numbness and Denies weakness Psychiatric: Psychiatric: Reports no additional psychiatric complaints Endocrine: Endocrine: Denies fatigue and Denies palpitations Hematologic/Lymphatic: Hematologic/Lymphatic: Denies easy bleeding and Denies easy bruising Allergic/Immunologic: Allergic/Immunologic: Denies wheezing PMFSH Past Medical History Medical History Atrial fibrillation Depression Hypertension Obstructive sleep apnea Surgical History Surgical History H/O hysterectomy for benign disease Laparoscopic LOVE-BSO History of tonsillectomy Family History Family History Mother Colon cancer Father Hypertension Acute myocardial infarction Cerebrovascular accident Social History Social History Social History: Ms. Garcia lives at home with her . She is independent in her ADLs. She is a retired teacher. Her PCP is Dr. Parker. She designates her , Roshan, as her surrogate decision maker. She would like to be a full code. Smoking status: Never smoker Alcohol intake: current Drinks per week: 0 Substance use: never Additional living arrangements comments: Lives with Billy. Gender identity (if verbalized by the patient): Female Spiritual care concerns: No
--- NOTE | 2020-07-28 22:49 | PC.NURSE ---
rn report received from cedric. this rn introduced self to pt. no distress noted, no current needs.
[2020-07-29] MEDS: LACTATED RINGERS 1,000 ML 150 ML IV CONT ×2 (00:26→07:12)
[2020-07-29] MEDS: fentaNYL CITRATE INJ (*CRX) 100 MCG/2 ML VIAL 50 MCG IV PUSH (00:40)
[2020-07-29] MEDS: ONDANSETRON INJ 4 MG/2 ML VIAL IV PUSH ×2 (04:08→10:40)
[2020-07-29] MEDS: KETOROLAC 30 MG/ML VIAL (*BKC) 15 MG IV PUSH (04:10)
[2020-07-29 06:00] VITALS: BP 132/52; PULSE 71; RESP 18; TEMP 36.8; O2SAT 95
[2020-07-29 06:21] LABS: Basophils Percent Auto 0.3 % (0.2-1.2); Hematocrit 43.5 % (37.0-47.0); Hemoglobin 15.8 g/dL (12.0-15.0); Immature Granulocyte Absolute 0.02 K/mm3 (0.00-0.031); Immature Granulocyte Percent A 0.3 % (0-0.5); Lymphocytes Absolute Auto 0.59 K/mm3 (0.9-3.2); Lymphocytes Percent Auto 9.4 % (18.3-44.2); Mean Corpuscular HGB Conc 36.3 g/dl (32-36); Mean Corpuscular Hemoglobin 36.7 pg (26-34); Mean Corpuscular Volume 101.2 fl (80-100); Mean Platelet Volume 9.7 fl (7.4-10.4); Monocytes Absolute Auto 0.5 K/mm3 (0.1-0.6); Monocytes Percent Auto 7.9 % (2.6-8.5); Neutrophils Absolute Auto 5.2 K/mm3 (1.3-6.7); Neutrophils Percent Auto 82.1 % (45.5-73.1); Platelet Count Result 202 k/mm3 (150-375); Red Cell Distribution Width 11.5 % (11.5-14.5); White Blood Count 6.3 K/mm3 (4.5-10.0)
[2020-07-29 06:44] LABS: Anion Gap 8 mmol/L (8-16); Blood Urea Nitrogen 16 mg/dL (7-17); Calcium 8.6 mg/dL (8.4-10.2); Carbon Dioxide 28 mmol/L (22-30); Chloride 100 mmol/L (98-107); Estimated CRCL calculation 60 ml/min; Estimated Glomerular Filt Rate > 60; Glucose 113 mg/dL (65-105); Potassium 3.9 mmol/L (3.4-5.0); Sodium 136 mmol/L (137-145)
--- NOTE | 2020-07-29 07:13 | PC.NURSE ---
to ct per stretcher
--- NOTE | 2020-07-29 07:50 | PC.NURSE ---
patient returned from ct
[2020-07-29] MEDS: FAMOTIDINE 20 MG/2 ML VIAL IV PUSH ×2 (08:20→20:44)
--- NOTE | 2020-07-29 10:50 | PM.IMHP ---
H&P: HPI History of Present Illness Date/Time: 07/29/20 09:50 Chief complaint: post-operative abdominal pain Narrative: Nasreen Garcia is a 65 year old female with a history of hypertension, LUTHER, and paroxysmal atrial fibrillation on chronic anticoagulation, who was recently admitted to the hospital on 07/24/20 with findings of a cecal volvulus. She underwent a hand-assisted laparoscopic right colectomy by Dr. Russell on 07/25/20. Following surgery, her diet was advanced and bowel function returned and she was discharged home on 07/27/20. After discharge, she reports feeling bloated at home and having a poor appetite. Yesterday, she began feeling nauseous and had two episodes of vomiting as well. Her abdominal pain was nearly unchanged but was uncontrolled with [id number] medication. She also reports generalized weakness that she feels is due to having such little nutrition. The pain continued to persist and she was unable to tolerate food throughout the day, therefore she presented to the hospital for further evaluation. Abdominal x-rays in the emergency department showed no free intraperitoneal gas or dilated gas-filled loops of bowel to suggest obstruction. Her labs were normal and she was afebrile. The patient was admitted to our service then for post-operative abdominal pain. CT scan of the abdomen and pelvis was ordered and showed dilated small bowel with transition point at the midline, consistent with small bowel obstruction versus postoperative adynamic ileus, moderate volume of ascites, and incidentally found was a 12 mm sclerotic lesion in right sacral ala. The patient is now being seen on the medical floor. She reports still feeling bloated and slightly nauseated. She has vomited once since being admitted. She reports her last bowel movement was yesterday morning and was a small liquid yellow BM. She denies flatus today. Reports lots of belching and still having the same lower abdominal pain. Denies fever, chills, or concerns with her abdominal incisions. No other complaints at this time. Review of Systems Constitutional: Constitutional: Reports as per HPI, Denies chills, Denies excessive sweating, Denies fatigue, Denies fever(s), Denies headache(s) and Reports weakness (generalized weakness) Eyes: Eyes: Denies change in vision and Denies loss of vision ENT: Reports Normal hearing present, Denies dizziness and Denies headache(s) Cardiovascular: Cardiovascular: Denies chest pain, Denies syncope, Denies leg edema, Denies lightheadedness, Denies radiating jaw, neck or arm pain and Denies dyspnea Respiratory: Respiratory: Denies cough, Denies dyspnea and Denies wheezing Gastrointestinal: Gastrointestinal: Reports as per HPI, Reports abdominal pain, Denies melena, Reports bloating, Denies hematochezia, Reports loose stools, Reports nausea and Reports vomiting Genitourinary: Genitourinary: Reports no additional female genitourinary complaints, Denies hematuria, Denies dysuria, Denies urinary hesitancy and Denies urinary urgency Musculoskeletal: Musculoskeletal: Denies deformity, Denies joint swelling, Denies radiating pain into limb and Denies tingling Integumentary/Breasts: Skin/Breast: Denies pruritus, Denies jaundice and Reports other (denies complaints of abdominal incisions) Neurologic: Reports Normal hearing present, Denies confusion, Denies dizziness, Denies syncope, Denies headache(s), Denies loss of vision, Denies tingling, Denies tremor(s) and Denies weakness Psychiatric: Psychiatric: Denies anxiety, Denies confusion and Denies depression Endocrine: Endocrine: Denies cold intolerance, Denies excessive sweating, Denies fatigue and Denies heat intolerance PMFSH Past Medical History Medical History Atrial fibrillation Depression Hypertension Obstructive sleep apnea Surgical History Surgical History H/O hysterectomy for ilya
[2020-07-29 14:32] VITALS: BP 140/58; PULSE 74; RESP 20; TEMP 36.4; O2SAT 99
--- NOTE | 2020-07-29 15:37 | PM.PNGS ---
Progress Note: A&P Assessment and Plan (1) Partial small bowel obstruction: Code(s): K56.600 - Partial intestinal obstruction, unspecified as to cause Status: Acute Assessment and Plan: Pull NG back 6 inches and re-secure. Explained nature of problem and general plan of treatment, length of stay expectations. Explained unlikely but not impossible that more surgery might be needed. Follow serial exam, labs, imaging. All questions answered. (2) S/P right colectomy: Code(s): Z90.49 - Acquired absence of other specified parts of digestive tract Status: Acute Assessment and Plan: 6 days ago. (3) Chronic anticoagulation: Code(s): Z79.01 - senior living (current) use of anticoagulants Status: Chronic Assessment and Plan: on hold--Xarelto; on sq lovenox (4) Paroxysmal atrial fibrillation: Code(s): I48.0 - Paroxysmal atrial fibrillation Status: Chronic Assessment and Plan: continue metoprolol IV (5) Obstructive sleep apnea: Code(s): G47.33 - Obstructive sleep apnea (adult) (pediatric) Status: Chronic (6) Hypertension: Code(s): I10 - Essential (primary) hypertension Status: Chronic Subjective Subjective Date/Time Seen: 07/29/20 15:37 Patient reports: pain is less, nausea, vomiting and afebrile Interval history: Patient is a 65-year-old woman who 6 days ago had hand access laparoscopic right colectomy for cecal volvulus. She did well but a couple of days ago call the office with complaints of bloating distension and nausea. This got worse and she went to the emergency room. Plain films from the emergency room suggested either partial small-bowel obstruction or ileus. Subsequent CT scan of the abdomen pelvis today as well as attempted upper GI small-bowel follow-through have confirmed significant ileus or partial small-bowel obstruction. Patient is admitted now for IV fluid resuscitation and further management. NG tube has been placed. Review of Systems Review of Systems: All systems reviewed & are unremarkable except as noted in HPI and below ( HPI) Exam Const: General: cooperative, healthy appearing, no acute distress, alert and awake Nutritional Appearance: well nourished and thin Orientation/consciousness: patient oriented x3 Limitations: no limitations GI: Inspection: distended and incision ( all incisions healing well) GI Palp: Yes Soft to palpation, Yes Tenderness to palpation present (GI), No Guarding due to palpation present (GI), No Hernia present, No Palpable mass present and No Rebound tenderness present Percussion: Yes tympanic to percussion Auscultation: High-pitched bowel sounds present Objective Data Vital Signs Vital Signs: Vital Signs - 24 hr 07/28/20 18:15 07/28/20 19:53 07/28/20 21:33 Temperature 36.7 C Pulse Rate 71 82 66 Respiratory Rate 15 18 18 Blood Pressure 152/95 H 183/67 H 122/53 L Pulse Oximetry 98 99 99 07/28/20 21:35 07/28/20 21:36 07/28/20 21:37 Temperature Pulse Rate 68 65 72 Respiratory Rate Blood Pressure 126/55 L 129/49 L Pulse Oximetry 07/28/20 23:26 07/28/20 23:50 07/29/20 06:00 Temperature 36.6 C 36.8 C Pulse Rate 66 71 71 Respiratory Rate 18 18 18 Blood Pressure 122/53 L 127/46 L 132/52 L Pulse Oximetry 99 99 95 07/29/20 14:32 Temperature 36.4 C Pulse Rate 74 Respiratory Rate 20 Blood Pressure 140/58 L Pulse Oximetry 99 Intake/Output Intake/Output: Intake & Output 07/26/20 07/27/20 07/28/20 07/29/20 23:59 23:59 23:59 23:59 Intake Total 1000 1000 Output Total 30 Balance 1000 970 Meds/Results Medications: Active Medications Generic Name Dose Route Start Last Admin Trade Name Freq PRN Reason Stop Dose Admin Famotidine 20 mg 07/29/20 09:00 07/29/20 08:20 Famotidine 20 Mg/2 Ml Vial IV PUSH 20 mg Q12HR OMER Administration Fentanyl Citrate 50 mcg 07/28/20 22:17 07/29/20 00:40 Fentanyl Citrate Inj (*Crx)
[2020-07-29] MEDS: PHENOL/SOD PHENO SPRAY CHERRY (*BKC) 1 SPRAY MUCOUS MEM (17:24)
[2020-07-29 17:25] VITALS: PULSE 74
[2020-07-29] MEDS: METOPROLOL TARTRATE INJ 5 MG/5 ML VIAL IV PUSH ×2 (17:25→21:21)
[2020-07-29] MEDS: LACTATED RINGERS 1,000 ML 100 ML IV CONT (17:25)
[2020-07-29 20:00] VITALS: PULSE 84; RESP 16; O2SAT 100
[2020-07-29] MEDS: ESCITALOPRAM OXALATE 10 MG TABLET 20 MG PO (20:43)
[2020-07-29] MEDS: ENOXAPARIN 30 MG/0.3 ML SYRINGE SUB-Q (20:44)
[2020-07-29 21:21] VITALS: PULSE 70
[2020-07-29] MEDS: fentaNYL CITRATE INJ (*CRX) 100 MCG/2 ML VIAL 25 MCG IV PUSH (21:46)
[2020-07-29 22:00] VITALS: BP 159/65; PULSE 84; RESP 16; TEMP 36.9; O2SAT 100
[2020-07-30] VITALS (8 sets, daily range): BP systolic 107–146; BP diastolic 51–78; PULSE 60–90; RESP 16–18; TEMP 36.8–37.2; O2SAT 97–100
[2020-07-30] MEDS: fentaNYL CITRATE INJ (*CRX) 100 MCG/2 ML VIAL 25 MCG IV PUSH (00:16)
[2020-07-30] MEDS: LACTATED RINGERS 1,000 ML 100 ML IV CONT (03:26)
[2020-07-30] MEDS: METOPROLOL TARTRATE INJ 5 MG/5 ML VIAL IV PUSH ×4 (04:10→21:29)
[2020-07-30 06:34] LABS: Hematocrit 38.2 % (37.0-47.0); Hemoglobin 13.8 g/dL (12.0-15.0); Mean Corpuscular HGB Conc 36.1 g/dl (32-36); Mean Corpuscular Hemoglobin 35.2 pg (26-34); Mean Corpuscular Volume 97.4 fl (80-100); Mean Platelet Volume 9.4 fl (7.4-10.4); Platelet Count Result 235 k/mm3 (150-375); Red Blood Count 3.92 M/mm3 (4.2-5.4); Red Cell Distribution Width 11.6 % (11.5-14.5)
[2020-07-30 06:51] LABS: Anion Gap 4 mmol/L (8-16); Blood Urea Nitrogen 22 mg/dL (7-17); Calcium 8.1 mg/dL (8.4-10.2); Carbon Dioxide 30 mmol/L (22-30); Chloride 102 mmol/L (98-107); Estimated CRCL calculation 60 ml/min; Estimated Glomerular Filt Rate > 60; Glucose 116 mg/dL (65-105); Potassium 4.2 mmol/L (3.4-5.0); Sodium 136 mmol/L (137-145)
[2020-07-30] MEDS: FAMOTIDINE 20 MG/2 ML VIAL IV PUSH ×2 (08:37→21:18)
[2020-07-30] MEDS: ENOXAPARIN 40 MG/0.4 ML SYRINGE SUB-Q (08:38)
[2020-07-30] MEDS: ONDANSETRON INJ 4 MG/2 ML VIAL IV PUSH ×2 (08:38→21:17)
--- NOTE | 2020-07-30 10:05 | PM.PNGS ---
Progress Note: A&P Assessment and Plan (1) Partial small bowel obstruction: Code(s): K56.600 - Partial intestinal obstruction, unspecified as to cause Status: Acute Assessment and Plan: Minimal improvement from yesterday. Will pull NG back and continue NG suction, NPO, IV fluids. Continue serial abdominal exam labs and KUB. Hopefully will see some more improvement tomorrow. (2) Cecal volvulus: Code(s): K56.2 - Volvulus Status: Resolved (3) S/P right colectomy: Code(s): Z90.49 - Acquired absence of other specified parts of digestive tract Status: Chronic Assessment and Plan: Postop day 7 today (4) Chronic anticoagulation: Code(s): Z79.01 - residential (current) use of anticoagulants Status: Chronic Assessment and Plan: On hold. (5) Paroxysmal atrial fibrillation: Code(s): I48.0 - Paroxysmal atrial fibrillation Status: Chronic Assessment and Plan: On metoprolol. Subjective Subjective Date/Time Seen: 07/30/20 07:45 Post Op day: SEVEN Patient reports: pain is less, flatus, afebrile and other (Insomnia) Exam GI: Inspection: distended, incision (Healing well) and no visible herniation GI Palp: Yes Soft to palpation, No Tenderness to palpation present (GI) and No Guarding due to palpation present (GI) Percussion: Yes tympanic to percussion Auscultation: Hypoactive bowel sounds present Objective Data Vital Signs Vital Signs: Vital Signs - 24 hr 07/29/20 14:32 07/29/20 17:25 07/29/20 20:00 Temperature 36.4 C Pulse Rate 74 74 84 Respiratory Rate 20 16 Blood Pressure 140/58 L Pulse Oximetry 99 100 07/29/20 21:21 07/29/20 22:00 07/30/20 04:10 Temperature 36.9 C Pulse Rate 70 84 90 Respiratory Rate 16 Blood Pressure 159/65 H Pulse Oximetry 100 07/30/20 06:00 Temperature 36.8 C Pulse Rate 86 Respiratory Rate 18 Blood Pressure 107/78 Pulse Oximetry 99 Intake/Output Intake/Output: Intake & Output 07/27/20 07/28/20 07/29/20 07/30/20 23:59 23:59 23:59 23:59 Intake Total 1000 2000 1000 Output Total 830 150 Balance 1000 1170 850 Meds/Results Medications: Active Medications Generic Name Dose Route Start Last Admin Trade Name Freq PRN Reason Stop Dose Admin Acetaminophen 500 mg 07/29/20 15:50 Acetaminophen 500 Mg Tablet PO Q6H PRN Mild Pain (1-3) or Fever Enoxaparin Sodium 40 mg 07/30/20 09:00 07/30/20 08:38 Enoxaparin 40 Mg/0.4 Ml Syringe SUB-Q 40 mg DAILY OMER Administration Escitalopram Oxalate 20 mg 07/29/20 21:00 07/29/20 20:43 Escitalopram Oxalate 10 Mg Tablet PO 20 mg HS OMER Administration Famotidine 20 mg 07/29/20 09:00 07/30/20 08:37 Famotidine 20 Mg/2 Ml Vial IV PUSH 20 mg Q12HR OMER Administration Fentanyl Citrate 25 mcg 07/29/20 15:48 07/30/20 00:16 Fentanyl Citrate Inj (*Crx) 100 Mcg/2 Ml Vial IV PUSH 25 mcg Q2H PRN Administration Pain Rated 7-10 Fentanyl Citrate 12.5 mcg 07/29/20 15:48 Fentanyl Citrate Inj (*Crx) 100 Mcg/2 Ml Vial IV PUSH Q2H PRN Pain Rated 4-6 Potassium Chloride/Dextrose/Sod Cl 1,000 mls @ 80 mls/hr 07/30/20 06:45 Kcl 20 Meq/D5/0.45% Sod Chl IV CONT .[id number] [facility] Metoprolol Tartrate 5 mg 07/29/20 16:00 07/30/20 04:10 Metoprolol Tartrate Inj 5 Mg/5 Ml Vial IV PUSH 5 mg Q6H OMER Administration Ondansetron HCl 4 mg 07/28/20 22:17 07/30/20 08:38 Ondansetron Inj 4 Mg/2 Ml Vial IV PUSH 4 mg Q4H PRN Administration Nausea Phenol 1 spray 07/29/20 14:24 07/29/20 17:24 Phenol/Sod Pheno [place] (*Bkc) MUCOUS MEM 1 spray PRN PRN Administration Sore Throat Radiology Results: ITS Impressions Abdomen/Pelvis CT 07/29/20 07:41 IMPRESSION: 1. Dilated small bowel with transition point at the midline, consistent with small bowel obstruction versus postoperative adynamic ileus. 2. Moderate volume of ascites. 3. 12 mm sclero
[2020-07-30] MEDS: KCL 20 MEQ/D5/0.45% SOD CHL 1,000 ML 80 ML IV CONT (10:12)
--- NOTE | 2020-07-30 13:48 | PC.NURSE ---
Patient had been up in room and NG clamped off. Went into room to check on patient and NG out of nose and laying across IV pump. New tube placed at 1330 and repeat KUB done and placement checked per auscultation as well.
[2020-07-30] MEDS: ESCITALOPRAM OXALATE 10 MG TABLET 20 MG PO (21:12)
[2020-07-30] MEDS: diphenhydrAMINE HCl INJ 50 MG/ML VIAL IV PUSH (21:20)
[2020-07-30] MEDS: LORazepam INJ (*CRX) 2 MG/ML VIAL 0.5 MG IV PUSH (21:21)
[2020-07-31] VITALS (8 sets, daily range): BP systolic 130–156; BP diastolic 51–75; PULSE 62–78; RESP 12–20; TEMP 36.1–37.4; O2SAT 95–99
[2020-07-31] MEDS: KCL 20 MEQ/D5/0.45% SOD CHL 1,000 ML 80 ML IV CONT ×2 (03:15→15:36)
[2020-07-31] MEDS: METOPROLOL TARTRATE INJ 5 MG/5 ML VIAL IV PUSH ×4 (03:29→21:33)
[2020-07-31 06:48] LABS: Hematocrit 39.9 % (37.0-47.0); Hemoglobin 14.3 g/dL (12.0-15.0); Mean Corpuscular HGB Conc 35.8 g/dl (32-36); Mean Corpuscular Hemoglobin 35.3 pg (26-34); Mean Corpuscular Volume 98.5 fl (80-100); Mean Platelet Volume 9.4 fl (7.4-10.4); Platelet Count Result 246 k/mm3 (150-375); Red Blood Count 4.05 M/mm3 (4.2-5.4); Red Cell Distribution Width 11.4 % (11.5-14.5); White Blood Count 8.9 K/mm3 (4.5-10.0)
[2020-07-31 07:00] LABS: Anion Gap 5 mmol/L (8-16); Blood Urea Nitrogen 17 mg/dL (7-17); Calcium 8.1 mg/dL (8.4-10.2); Carbon Dioxide 28 mmol/L (22-30); Chloride 103 mmol/L (98-107); Estimated CRCL calculation 60 ml/min; Estimated Glomerular Filt Rate > 60; Glucose 132 mg/dL (65-105); Potassium 3.8 mmol/L (3.4-5.0); Sodium 136 mmol/L (137-145)
--- NOTE | 2020-07-31 07:50 | PM.PNGS ---
Progress Note: A&P Assessment and Plan (1) Partial small bowel obstruction: Code(s): K56.600 - Partial intestinal obstruction, unspecified as to cause Status: Acute Assessment and Plan: improved, will get UGI/SBFT today. If passes without signs obstruction or ileus, d/c NG and feed (2) S/P right colectomy: Code(s): Z90.49 - Acquired absence of other specified parts of digestive tract Status: Chronic (3) Chronic anticoagulation: Code(s): Z79.01 - senior living (current) use of anticoagulants Status: Chronic Assessment and Plan: held (4) Paroxysmal atrial fibrillation: Code(s): I48.0 - Paroxysmal atrial fibrillation Status: Chronic Subjective Subjective Date/Time Seen: 07/31/20 07:50 Post Op day: 8 Patient reports: no new complaints, feels better, pain is less, flatus and bowel movement (liquid) Review of Systems Review of Systems: All systems reviewed & are unremarkable except as noted in HPI and below Constitutional: Constitutional: Denies chills, Denies fever(s) and Denies night sweats Cardiovascular: Cardiovascular: Denies chest pain and Denies dyspnea Respiratory: Respiratory: Denies cough and Denies dyspnea Gastrointestinal: Gastrointestinal: Reports as per HPI Neurologic: Denies confusion and Denies headache(s) Exam Const: General: comfortable and no acute distress; No confusion Orientation/consciousness: patient oriented x3 and No confusion GI: Inspection: distended and incision (healing well, dry, intact, no redness) GI Palp: Yes Soft to palpation, No Tenderness to palpation present (GI), No Guarding due to palpation present (GI) and No Rebound tenderness present Auscultation: normal bowel sounds Neuro: General: patient oriented x3, no focal motor deficits and No confusion Psych: Affect: normal affect Insight: Good insight present (Psych) Judgement: Good judgement present (Psych) Objective Data Vital Signs Vital Signs: Vital Signs - 24 hr 07/30/20 10:15 07/30/20 10:25 07/30/20 14:00 Temperature 36.8 C Pulse Rate 86 86 60 Respiratory Rate 16 18 Blood Pressure 140/51 L Pulse Oximetry 97 100 07/30/20 16:55 07/30/20 21:29 07/30/20 22:00 Temperature 37.2 C Pulse Rate 60 66 61 Respiratory Rate 18 Blood Pressure 146/70 H Pulse Oximetry 99 07/31/20 03:29 07/31/20 06:00 Temperature 37.4 C Pulse Rate 62 62 Respiratory Rate 12 Blood Pressure 151/51 H Pulse Oximetry 95 Intake/Output Intake/Output: Intake & Output 07/28/20 07/29/20 07/30/20 07/31/20 23:59 23:59 23:59 23:59 Intake Total 1000 2000 1550 1000 Output Total 830 600 Balance 1000 3379 676 3568 Meds/Results Medications: Active Medications Generic Name Dose Route Start Last Admin Trade Name Freq PRN Reason Stop Dose Admin Acetaminophen 500 mg 07/29/20 15:50 Acetaminophen 500 Mg Tablet PO Q6H PRN Mild Pain (1-3) or Fever Diphenhydramine HCl 50 mg 07/30/20 10:10 07/30/20 21:20 Diphenhydramine Hcl Inj 50 Mg/Ml Vial IV PUSH 50 mg Q6H PRN Administration Sleep Enoxaparin Sodium 40 mg 07/30/20 09:00 07/30/20 08:38 Enoxaparin 40 Mg/0.4 Ml Syringe SUB-Q 40 mg DAILY OMER Administration Escitalopram Oxalate 20 mg 07/29/20 21:00 07/30/20 21:12 Escitalopram Oxalate 10 Mg Tablet PO 20 mg HS OMER Administration Famotidine 20 mg 07/29/20 09:00 07/30/20 21:18 Famotidine 20 Mg/2 Ml Vial IV PUSH 20 mg Q12HR OMER Administration Fentanyl Citrate 25 mcg 07/29/20 15:48 07/30/20 00:16 Fentanyl Citrate Inj (*Crx) 100 Mcg/2 Ml Vial IV PUSH 25 mcg Q2H PRN Administration Pain Rated 7-10 Fentanyl Citrate 12.5 mcg 07/29/20 15:48 Fentanyl Citrate Inj (*Crx) 100 Mcg/2 Ml Vial IV PUSH Q2H PRN Pain Rated 4-6 Potassium Chloride/Dextrose/Sod Cl 1,000 mls @ 80 mls/hr 07/30/20 06:45 07/31/20 03:15 Kcl 20 Meq/D5/0.45% Sod Chl IV CONT 80 mls/hr .[id number] OMER
[2020-07-31] MEDS: FAMOTIDINE 20 MG/2 ML VIAL IV PUSH ×2 (09:20→21:33)
[2020-07-31] MEDS: ENOXAPARIN 40 MG/0.4 ML SYRINGE SUB-Q (09:20)
[2020-07-31] MEDS: fentaNYL CITRATE INJ (*CRX) 100 MCG/2 ML VIAL 25 MCG IV PUSH ×3 (11:20→15:30)
[2020-07-31] MEDS: IBUPROFEN IV 800 MG/200 ML 800 MG/200 ML BAG 400 MG IVPB ×2 (15:37→21:39)
[2020-07-31] MEDS: ESCITALOPRAM OXALATE 10 MG TABLET 20 MG PO (21:32)
[2020-07-31] MEDS: fentaNYL CITRATE INJ (*CRX) 100 MCG/2 ML VIAL 50 MCG IV PUSH (21:44)
[2020-07-31] MEDS: diphenhydrAMINE HCl INJ 50 MG/ML VIAL IV PUSH (21:53)
[2020-07-31] MEDS: ONDANSETRON INJ 4 MG/2 ML VIAL IV PUSH (22:00)
[2020-08-01] VITALS (21 sets, daily range): BP systolic 93–171; BP diastolic 59–77; PULSE 60–96; RESP 12–20; TEMP 36.8–37.1; O2SAT 94–100
[2020-08-01] MEDS: IBUPROFEN IV 800 MG/200 ML 800 MG/200 ML BAG 400 MG IVPB ×3 (04:12→21:56)
[2020-08-01] MEDS: METOPROLOL TARTRATE INJ 5 MG/5 ML VIAL IV PUSH ×3 (04:21→21:50)
[2020-08-01] MEDS: KCL 20 MEQ/D5/0.45% SOD CHL 1,000 ML 80 ML IV CONT (04:50)
[2020-08-01] MEDS: fentaNYL CITRATE INJ (*CRX) 100 MCG/2 ML VIAL 50 MCG IV PUSH ×2 (04:59→16:01)
[2020-08-01 06:33] LABS: Hematocrit 38.7 % (37.0-47.0); Hemoglobin 13.9 g/dL (12.0-15.0); Mean Corpuscular HGB Conc 35.9 g/dl (32-36); Mean Corpuscular Hemoglobin 35.4 pg (26-34); Mean Corpuscular Volume 98.5 fl (80-100); Mean Platelet Volume 9.5 fl (7.4-10.4); Platelet Count Result 254 k/mm3 (150-375); Red Blood Count 3.93 M/mm3 (4.2-5.4); Red Cell Distribution Width 11.6 % (11.5-14.5); White Blood Count 8.1 K/mm3 (4.5-10.0)
[2020-08-01 06:54] LABS: Anion Gap 5 mmol/L (8-16); Blood Urea Nitrogen 15 mg/dL (7-17); Calcium 7.7 mg/dL (8.4-10.2); Carbon Dioxide 30 mmol/L (22-30); Chloride 100 mmol/L (98-107); Estimated CRCL calculation 60 ml/min; Estimated Glomerular Filt Rate > 60; Glucose 123 mg/dL (65-105); Potassium 3.5 mmol/L (3.4-5.0); Sodium 135 mmol/L (137-145)
--- NOTE | 2020-08-01 08:04 | PM.PNGS ---
Progress Note: A&P Assessment and Plan (1) Small intestine obstruction: Code(s): K56.609 - Unspecified intestinal obstruction, unspecified as to partial versus complete obstruction Status: Acute Assessment and Plan: no evidence of resolution after over 72 hours of NG suction. I have recommended we go ahead with exploratory laparotomy for small-bowel obstruction. I discussed this procedure with the patient. I discussed the potential causes of the small bowel obstruction with the patient. She would like to talk with her but most likely will be going ahead. (2) S/P right colectomy: Code(s): Z90.49 - Acquired absence of other specified parts of digestive tract Status: Chronic Assessment and Plan: Postop day 7. After laparoscopic right colectomy for cecal volvulus (3) Chronic anticoagulation: Code(s): Z79.01 - assisted (current) use of anticoagulants Status: Chronic Assessment and Plan: Xarelto remains on hold (4) Paroxysmal atrial fibrillation: Code(s): I48.0 - Paroxysmal atrial fibrillation Status: Chronic Assessment and Plan: continue beta-tish Subjective Subjective Date/Time Seen: 08/01/20 08:04 Post Op day: 7 Patient reports: still having pain, no flatus, no bowel movement and afebrile Interval history: small-bowel series yesterday showed small-bowel obstruction with no passage of contrast into the colon. Patient did not have any bowel movements after the study. She was having crampy pain last night after the study. She had over 1500 cc out of her NG tube on returning to the floor last night. She is really not feeling better this morning. The pain is much less than it was last night but still no evidence of return of bowel function. Review of Systems Review of Systems: All systems reviewed & are unremarkable except as noted in HPI and below Constitutional: Constitutional: Denies chills, Denies fever(s) and Reports poor appetite Cardiovascular: Cardiovascular: Denies chest pain and Denies dyspnea Respiratory: Respiratory: Denies cough and Denies dyspnea Gastrointestinal: Gastrointestinal: Reports as per HPI, Reports abdominal pain, Reports bloating and Reports GI cramping Neurologic: Denies confusion and Denies headache(s) Exam Const: General: comfortable and no acute distress; No confusion Orientation/consciousness: patient oriented x3 and No confusion GI: Inspection: distended and incision ( Healing well) GI Palp: Yes Firmness to palpation present (GI), Yes Tenderness to palpation present (GI), No Guarding due to palpation present (GI), No Hernia present, No Palpable mass present and No Rebound tenderness present Percussion: Yes tympanic to percussion Auscultation: absent bowel sounds Neuro: General: patient oriented x3, no focal motor deficits and No confusion Extrem: General: no calf tenderness and no edema Psych: Affect: normal affect Insight: Good insight present (Psych) Judgement: Good judgement present (Psych) Objective Data Vital Signs Vital Signs: Vital Signs - 24 hr 07/31/20 09:22 07/31/20 14:00 07/31/20 15:02 Temperature 36.8 C Pulse Rate 76 78 72 Respiratory Rate 18 Blood Pressure 130/71 Pulse Oximetry 97 07/31/20 20:00 07/31/20 21:33 07/31/20 22:00 Temperature 36.1 C L Pulse Rate 74 74 74 Respiratory Rate 20 20 Blood Pressure 156/75 H Pulse Oximetry 99 99 08/01/20 04:00 08/01/20 04:21 08/01/20 06:00 Temperature 37.0 C 36.8 C Pulse Rate 96 63 61 Respiratory Rate 20 18 Blood Pressure 171/70 H 140/70 Pulse Oximetry 96 98 Intake/Output Intake/Output: Intake & Output 07/29/20 07/30/20 07/31/20 08/01/20 23:59 23:59 23:59 23:59 Intake Total 1999 1550 2400 1000 Output Total 263 495 3115 700 Balance 1170 950 -100 300 Meds/Results Medications: Active Medications Generic Name Dose Route Start Last Admin Trade Name Freq PRN Reason Stop Dose Adm
--- NOTE | 2020-08-01 08:19 | WPDHPUPDATE1 ---
History and Physical Update Update Date/Time: 08/01/20 08:19 History and Physical has been reviewed, including an updated exam of the patient. There are NO changes in the patient's condition. Risks, benefits, and alternatives have been discussed and questions answered. Patient agrees to proceed with procedure.
--- NOTE | 2020-08-01 09:25 | WPDANESEPPF ---
Anes - Initial Pre Proc Eval Procedure: Operation Date: 08/01/20 11:00 Proposed Procedures p Exploratory Laparotomy For Small Bowel Obstruction - Joni Russell MD Date/Time: 08/01/20 09:26 Surgeon: Joni Russell MD Pre Op Diagnosis: post-operative abdominal pain Patient Data Age: 65 Gender: F Height: 1.65 m Weight: 58 kg Last Vital Signs Temp 36.8 C 08/01/20 06:00 Pulse 61 08/01/20 06:00 Resp 18 08/01/20 06:00 BP 140/70 08/01/20 06:00 Pulse Ox 98 08/01/20 06:00 Allergies Allergy/AdvReac Type Severity Reaction Status Date / Time Penicillins Allergy Intermediate HIVES Verified 07/25/20 08:59 latex Allergy Mild RASH Verified 07/25/20 08:59 Home Medications Medication Instructions Recorded Confirmed Type Xarelto 20 mg PO HS 07/24/20 07/29/20 History escitalopram oxalate 20 mg PO HS 07/24/20 07/29/20 History finasteride 2.5 mg PO DAILY 07/24/20 07/29/20 History lisinopril 10 mg PO DAILY 07/24/20 07/29/20 History metoprolol tartrate 12.5 mg PO BID 07/24/20 07/29/20 History spironolactone 25 mg PO DAILY 07/24/20 07/29/20 History ibuprofen 600 mg tablet 600 mg PO Q6H PRN #20 tablet 07/28/20 07/29/20 Rx Laboratory Tests 08/01/20 08/01/20 05:42 05:42 WBC 8.1 K/mm3 K/mm3 (4.5-10.0) RBC 3.93 M/mm3 L M/mm3 (4.2-5.4) Hgb 13.9 g/dL g/dL (12.0-15.0) Hct 38.7 % % (37.0-47.0) MCV 98.5 fl fl (80-100) MCH 35.4 pg H pg (26-34) MCHC 35.9 g/dl g/dl (32-36) RDW 11.6 % % (11.5-14.5) Plt Count 254 k/mm3 k/mm3 (150-375) MPV 9.5 fl fl (7.4-10.4) Sodium 135 mmol/L L mmol/L (137-145) Potassium 3.5 mmol/L mmol/L (3.4-5.0) Chloride 100 mmol/L mmol/L (98-107) Carbon Dioxide 30 mmol/L mmol/L (22-30) Anion Gap 5 mmol/L L mmol/L (8-16) BUN 15 mg/dL mg/dL (7-17) Creatinine 0.70 mg/dL mg/dL (0.7-1.0) Estim Creat Clear Calc 60 ml/min ml/min Estimated GFR > 60 (59 - ) Glucose 123 mg/dL H mg/dL (65-105) Calcium 7.7 mg/dL L mg/dL (8.4-10.2) Patient hx anesthesia problems: none Family hx anesthesia problems: none [facility] Past Medical History Medical History Atrial fibrillation Depression Hypertension Obstructive sleep apnea Surgical History Surgical History H/O hysterectomy for benign disease Laparoscopic LOVE-BSO History of tonsillectomy S/P right colectomy 07/25/20 DELIA right colctomy for cecal volvulus Family History Family History Mother Colon cancer Father Hypertension Acute myocardial infarction Cerebrovascular accident Social History Social History Social History: Ms. Garcia lives at home with her . She is independent in her ADLs. She is a retired teacher. Her PCP is Dr. Parker. She designates her , Roshan, as her surrogate decision maker. She would like to be a full code. Smoking status: Never smoker Alcohol intake: never Drinks per week: 0 Substance use: never Additional living arrangements comments: Lives with Billy. Gender identity (if verbalized by the patient): Female Sexual Orientation (if Verbalized by the Patient): Straight or Heterosexual Spiritual care concerns: No Anes - Eval Final PreProcedure Day of Procedure 08/01/20 09:26 Patient weight: normal Heart: regular rate and rhythm Lungs: clear to auscultation and normal air movement Airway: Mallampati scale class IV Neurological: alert and oriented Last oral intake: >/= 8 hours ASA classification: III Emergent: no Anesthetic plan: proceed Anesthesia type and monitoring: general ETT and standard monitoring Informed Consent: The patient's anesthetic plan and its at
[2020-08-01] MEDS: LACTATED RINGERS 1,000 ML 30 ML IV CONT ×2 (09:29→12:58)
[2020-08-01] MEDS: ceFAZolin 2 GM/D5W 50 ML 2 GM/50 ML BAG IVPB (10:25)
[2020-08-01] MEDS: BUPIVACAINE HCL 0.5% PF 30 ML VIAL 60 ML INFILTRATE (11:57)
--- NOTE | 2020-08-01 13:42 | PM.PROC ---
Procedure Note - Detailed Date of procedure: 08/01/20 Pre-op diagnosis: Small-bowel obstruction Small-bowel obstruction Post-op diagnosis: same Procedure performed: Resection previous ileotransverse anastomosis, creation new ileotransverse anastomosis with closure mesenteric defect Description of procedure: The patient was taken to surgery and induced into general anesthesia. The abdomen was prepped and draped. We reopened the hand access incision. This was done initially with opening the skin with the scalpel. Subcutaneous sutures were also divided with the scalpel. These were removed. I then removed the fascia closure which had been done with strata Fix. As the abdomen was opened there was a lot of ascites within the peritoneal cavity. This was suctioned away. It was evident that the bowel was quite dilated. I eviscerated much of the small intestine but the hand access incision was too small to allow adequate evaluation. I opened the hand access incision so that it extended just below the umbilicus. From there I was able to fully evaluate the abdomen. I eviscerated the small bowel which was all dilated and edematous. The previous ileotransverse anastomosis appeared to have twisted or herniated through the mesenteric defect to cause relative obstruction there. The bowel proximal to it was not nearly as dilated as that bowel more proximal. After untwisting the anastomosis and then laying out all the more proximal small bowel, there really was no definite transition point. The anastomosis had twisted through the mesenteric defect. It seemed the best way to repair this was to resect the ileotransverse anastomosis and then create a 2nd anastomosis. Also closing the mesenteric defect should be another to prevent this from happening again. I used the LigaSure and divided the mesentery to the proximal transverse colon about 4 cm past the anastomosis. I then divided the transverse colon here with the TLC 75 stapler. In similar fashion, I divided the mesentery about 4-5 cm proximal to the anastomosis on the distal ileum. This was also done with the LigaSure. I then divided this small bowel with the TLC 75 stapler. The ileotransverse anastomosis was then passed off as a specimen. I then repositioned the NG tube in the stomach. I milked small-bowel content retrograde up into the stomach and evacuated all or as much as I could of the enteric content out the NG tube. We filled a canister and a half in this fashion. This greatly decompressed the small bowel so that it would fit back in the abdomen without creating as much distension. I then carefully laid out the distal ileum and proximal transverse colon taking great care that the mesentery would lay without any ability to twist on itself. I then created a [id number] but functional end-to-end anastomosis between the distal ileum and transverse colon. This was a hand-sewn anastomosis in 2 layers. The posterior outer layer was 4 0 silk interrupted Lembert sutures. I then created an enterotomy and a colotomy. The posterior inner layer was bidirectional running, locking 4 0 chromic suture. The anterior inner layer was completed by using Iola suture technique of the 4 0 chromic. The 2 sutures were tied together in the midline. I then completed the anterior outer layer with 4 0 silk Lembert sutures. I then exposed the mesentery between the ileum and transverse colon. I closed this mesentery with interrupted 4 0 silk suture. I looked this from both directions and I could not see how possibly another volvulus or twisting of the ileotransverse anastomosis could recur. I then placed all the small bowel as well as the anastomosis back in the abdomen. I rechecked the NG tube which was in good position. The surgical team changed outer gloves. I then infiltrated local anesthetic throughout the area of the incision for postoperative analgesic effect. The midline fascia was then closed with 1. Running strata Fix. The s
[2020-08-01] MEDS: KCL 40 MEQ/D5/0.9% SOD CHL 1,000 ML 125 ML IV CONT (15:52)
[2020-08-01] MEDS: ENOXAPARIN 40 MG/0.4 ML SYRINGE SUB-Q (16:03)
[2020-08-01] MEDS: ESCITALOPRAM OXALATE 10 MG TABLET 20 MG PO (20:34)
[2020-08-01] MEDS: FAMOTIDINE 20 MG/2 ML VIAL IV PUSH (20:35)
[2020-08-01] MEDS: diphenhydrAMINE HCl INJ 50 MG/ML VIAL IV PUSH (21:50)
[2020-08-02] VITALS (10 sets, daily range): BP systolic 120–166; BP diastolic 48–68; PULSE 58–80; RESP 16–20; TEMP 36.6–37.6; O2SAT 95–100
[2020-08-02] MEDS: KCL 40 MEQ/D5/0.9% SOD CHL 1,000 ML 125 ML IV CONT ×3 (01:00→20:04)
[2020-08-02] MEDS: METOPROLOL TARTRATE INJ 5 MG/5 ML VIAL IV PUSH ×4 (04:04→23:05)
[2020-08-02] MEDS: IBUPROFEN IV 800 MG/200 ML 800 MG/200 ML BAG 400 MG IVPB ×4 (04:04→23:05)
[2020-08-02 06:36] LABS: Hematocrit 37.8 % (37.0-47.0); Hemoglobin 13.2 g/dL (12.0-15.0); Mean Corpuscular HGB Conc 34.9 g/dl (32-36); Mean Corpuscular Hemoglobin 34.6 pg (26-34); Mean Platelet Volume 9.7 fl (7.4-10.4); Platelet Count Result 259 k/mm3 (150-375); Red Blood Count 3.82 M/mm3 (4.2-5.4); Red Cell Distribution Width 11.6 % (11.5-14.5); White Blood Count 7.7 K/mm3 (4.5-10.0)
[2020-08-02 07:25] LABS: Anion Gap 4 mmol/L (8-16); Blood Urea Nitrogen 13 mg/dL (7-17); Calcium 7.2 mg/dL (8.4-10.2); Carbon Dioxide 30 mmol/L (22-30); Chloride 103 mmol/L (98-107); Estimated CRCL calculation 60 ml/min; Estimated Glomerular Filt Rate > 60; Glucose 108 mg/dL (65-105); Potassium 3.9 mmol/L (3.4-5.0); Sodium 137 mmol/L (137-145)
[2020-08-02] MEDS: FAMOTIDINE 20 MG/2 ML VIAL IV PUSH ×2 (10:09→20:01)
--- NOTE | 2020-08-02 11:04 | PM.PNGS ---
Progress Note: A&P Assessment and Plan (1) Small intestine obstruction: Onset Date: ~07/31/20 Code(s): K56.609 - Unspecified intestinal obstruction, unspecified as to partial versus complete obstruction Status: Acute Assessment and Plan: doing well postop day 1. . Ileus may be resolving as she had a spontaneous bowel movement this morning. Still had some output from NG overnight so will go slowly with GI function recovering. Encouraged patient to walking use incentive spirometer. (2) S/P right colectomy: Code(s): Z90.49 - Acquired absence of other specified parts of digestive tract Status: Chronic (3) Hypertension: Onset Date: Unknown Code(s): I10 - Essential (primary) hypertension Status: Chronic Assessment and Plan: Will restart antihypertensives once NG tube is out. Monitor blood pressures in the interim period (4) Obstructive sleep apnea: Code(s): G47.33 - Obstructive sleep apnea (adult) (pediatric) Status: Chronic (5) Paroxysmal atrial fibrillation: Onset Date: Unknown Code(s): I48.0 - Paroxysmal atrial fibrillation Status: Chronic Assessment and Plan: Xeralto on hold. Will restart this once NG tube is out and wound seems to be doing well. Additional Plan If patient has another bowel movement may consider clamping routine on NG later today. Subjective Subjective Date/Time Seen: 08/02/20 11:04 Post Op day: 1 (Progressing nicely postop day 1) Patient reports: bowel movement ( x1 mid morning today) Interval history: Patient denies any nausea. Feels somewhat bloated and has some abdominal pain from the incision. Review of Systems Constitutional: Constitutional: Reports no additional constitutional complaints ENT: Reports other (Mucous Membranes moist.) Cardiovascular: Cardiovascular: Denies dyspnea Respiratory: Respiratory: Denies pain on inspiration and Denies dyspnea Gastrointestinal: Gastrointestinal: Reports as per HPI, Reports bloating and Denies nausea Musculoskeletal: Musculoskeletal: Reports other (No calf swelling or edema) Integumentary/Breasts: Skin/Breast: Reports system reviewed and no additional complaints, except as docu Exam Const: General: cooperative, no acute distress, alert and awake Nutritional Appearance: well nourished Orientation/consciousness: patient oriented x3 HENMT: Mouth: Yes moist mucous membranes Neck: Neck: normal visual inspection Chest: Chest palpation & inspection: normal inspection of the chest Resp: Effort & Inspection: normal respiratory effort Auscultation: clear to auscultation bilaterally Cardio: Jugular venous distension: no JVD Rate: regular rate Rhythm: regular rhythm GI: Inspection: incision ( Dressing intact not changed today. No significant drainage.) Auscultation: normal bowel sounds Rectal Exam: deferred Neuro: General: patient oriented x3 and moves all extremities Speech: normal speech Extrem: General: normal exam except as noted Psych: Mental Status: mental status grossly normal Speech and movement: Normal speech and movement present Affect: normal affect Thought content: Yes Normal thought content present Objective Data Vital Signs Vital Signs: Vital Signs - 24 hr 08/01/20 12:58 08/01/20 13:10 08/01/20 13:25 Temperature 37.1 C Pulse Rate 80 76 73 Respiratory Rate 12 18 16 Blood Pressure 151/71 H 154/77 H 93/59 L Pulse Oximetry 100 100 100 08/01/20 13:31 08/01/20 13:40 08/01/20 13:55 Temperature Pulse Rate 66 67 Respiratory Rate 12 12 Blood Pressure 138/67 149/61 H Pulse Oximetry 100 97 97 08/01/20 14:10 08/01/20 14:25 08/01/20 14:40 Temperature Pulse Rate 65 68 65 Respiratory Rate 14 16 14 Blood Pressure 144/68 H 150/68 H 141/66 H Pulse Oximetry 98 97 97 08/01/20 14:48 08/01/20 15:00 08/01/20 15:15 Temperature Pulse Rate 68 65 66 Respiratory Rate 12 16 16 Blood Pressure 154/70 H 1
[2020-08-02] MEDS: fentaNYL CITRATE INJ (*CRX) 100 MCG/2 ML VIAL 50 MCG IV PUSH (13:50)
[2020-08-02] MEDS: ENOXAPARIN 40 MG/0.4 ML SYRINGE SUB-Q (13:51)
[2020-08-02] MEDS: ESCITALOPRAM OXALATE 10 MG TABLET 20 MG PO (20:01)
[2020-08-02] MEDS: diphenhydrAMINE HCl INJ 50 MG/ML VIAL IV PUSH (21:38)
[2020-08-03] VITALS (9 sets, daily range): BP systolic 131–153; BP diastolic 52–59; PULSE 61–87; RESP 16–18; TEMP 36.4–37.3; O2SAT 95–100
[2020-08-03] MEDS: METOPROLOL TARTRATE INJ 5 MG/5 ML VIAL IV PUSH ×4 (05:08→22:06)
[2020-08-03] MEDS: IBUPROFEN IV 800 MG/200 ML 800 MG/200 ML BAG 400 MG IVPB ×4 (05:08→21:29)
[2020-08-03 06:18] LABS: Basophils Percent Auto 0.2 % (0.2-1.2); Eosinophils Absolute Auto 0.2 K/mm3 (0-0.3); Eosinophils Percent Auto 1.7 % (0-4.4); Hematocrit 36.6 % (37.0-47.0); Hemoglobin 12.9 g/dL (12.0-15.0); Immature Granulocyte Absolute 0.03 K/mm3 (0.00-0.031); Immature Granulocyte Percent A 0.3 % (0-0.5); Lymphocytes Absolute Auto 0.69 K/mm3 (0.9-3.2); Lymphocytes Percent Auto 6.8 % (18.3-44.2); Mean Corpuscular HGB Conc 35.2 g/dl (32-36); Mean Corpuscular Hemoglobin 34.9 pg (26-34); Mean Corpuscular Volume 98.9 fl (80-100); Mean Platelet Volume 9.3 fl (7.4-10.4); Monocytes Absolute Auto 0.9 K/mm3 (0.1-0.6); Monocytes Percent Auto 9.2 % (2.6-8.5); Neutrophils Absolute Auto 8.4 K/mm3 (1.3-6.7); Neutrophils Percent Auto 81.8 % (45.5-73.1); Platelet Count Result 297 k/mm3 (150-375); Red Cell Distribution Width 11.7 % (11.5-14.5); White Blood Count 10.2 K/mm3 (4.5-10.0)
[2020-08-03 06:28] LABS: Anion Gap 3 mmol/L (8-16); Blood Urea Nitrogen 8 mg/dL (7-17); Calcium 7.3 mg/dL (8.4-10.2); Carbon Dioxide 27 mmol/L (22-30); Chloride 107 mmol/L (98-107); Estimated CRCL calculation 70 ml/min; Estimated Glomerular Filt Rate > 60; Glucose 107 mg/dL (65-105); Magnesium 1.9 mg/dL (1.6-2.3); Potassium 3.9 mmol/L (3.4-5.0); Sodium 137 mmol/L (137-145)
[2020-08-03] MEDS: KCL 40 MEQ/D5/0.9% SOD CHL 1,000 ML 125 ML IV CONT (06:56)
--- NOTE | 2020-08-03 10:04 | P.PNAN_ITS ---
Anes - Prog Note Post-Op Date/Time: 08/03/20 10:04 Cardiovascular status: normal Respiratory status: normal Airway patency: baseline Mental status: baseline Post-Op hydration status: normal Vital Signs: Last Vital Signs Temp 37.2 C 08/03/20 06:00 Pulse 61 08/03/20 06:00 Resp 18 08/03/20 06:00 BP 131/56 L 08/03/20 06:00 Pulse Ox 95 08/03/20 06:00 Pain Score (VAS): 3 I/O: Intake & Output 08/02/20 08/03/20 08/03/20 23:59 07:59 15:59 Intake Total 1400 1320 Output Total 1600 1400 Balance -200 -80 Laboratory Tests 08/03/20 05:58 08/03/20 05:58 08/03/20 08/03/20 05:58 05:58 WBC 10.2 H RBC 3.70 L Hgb 12.9 Hct 36.6 L MCV 98.9 MCH 34.9 H MCHC 35.2 RDW 11.7 Plt Count 297 MPV 9.3 Immature Gran % (Auto) 0.3 Neut % (Auto) 81.8 H Lymph % (Auto) 6.8 L Beaver % (Auto) 9.2 H Eos % (Auto) 1.7 Baso % (Auto) 0.2 Lymph # (Auto) 0.69 L Beaver # (Auto) 0.9 H Eos # (Auto) 0.2 Baso # (Auto) 0.0 Abs Immat Gran (auto) 0.03 Absolute Neuts (auto) 8.4 H Absolute Nucleated RBC 0.0 Nucleated RBC % 0.0 Sodium 137 Potassium 3.9 Chloride 107 Carbon Dioxide 27 Anion Gap 3 L BUN 8 D Creatinine 0.60 L Estim Creat Clear Calc 70 Estimated GFR > 60 Glucose 107 H Calcium 7.3 L Magnesium 1.9 Post-procedural complaints: none Patient Feedback: Patient satisfied with anesthetic care.
[2020-08-03] MEDS: LORazepam INJ (*CRX) 2 MG/ML VIAL 0.5 MG IV PUSH (10:41)
[2020-08-03] MEDS: ENOXAPARIN 40 MG/0.4 ML SYRINGE SUB-Q (10:46)
[2020-08-03] MEDS: FAMOTIDINE 20 MG/2 ML VIAL IV PUSH (10:46)
--- NOTE | 2020-08-03 12:57 | PM.PNGS ---
Progress Note: A&P Assessment and Plan (1) Small intestine obstruction: Onset Date: ~07/31/20 Code(s): K56.609 - Unspecified intestinal obstruction, unspecified as to partial versus complete obstruction Status: Acute Assessment and Plan: Doing well postop day 2. . Ileus is resolving as she had anther spontaneous bowel movement this morning. Encouraged patient to walk and use incentive spirometer. (2) S/P right colectomy: Code(s): Z90.49 - Acquired absence of other specified parts of digestive tract Status: Chronic (3) Hypertension: Onset Date: Unknown Code(s): I10 - Essential (primary) hypertension Status: Chronic Assessment and Plan: Will restart antihypertensives once NG tube is out. Monitor blood pressures in the interim period (4) Obstructive sleep apnea: Code(s): G47.33 - Obstructive sleep apnea (adult) (pediatric) Status: Chronic (5) Paroxysmal atrial fibrillation: Onset Date: Unknown Code(s): I48.0 - Paroxysmal atrial fibrillation Status: Chronic Assessment and Plan: Xeralto on hold. Will restart this once NG tube is out and wound seems to be doing well. Additional Plan Remove NG today Start clear liquids slowly Add ensure surgery as b.i.d. supplement. Change Pepcid to p.o. Check lateral its in a.m.. Subjective Subjective Date/Time Seen: 08/03/20 12:57 Post Op day: 2 ( Improving nicely postop day 2) Patient reports: feels better, bowel movement and afebrile Interval history: patient is sitting up in bed. Has had her NG clamped since 7 this morning. And has had 1 bowel movement since then. Denies nausea. Has been walking in the halls. Review of Systems Constitutional: Constitutional: Reports as per HPI, Reports no additional constitutional complaints, Denies chills, Denies excessive sweating, Denies fatigue, Denies fever(s), Denies headache(s), Denies night sweats, Reports poor appetite and Denies weakness Eyes: Eyes: Denies change in vision and Denies loss of vision ENT: Denies dizziness, Denies headache(s) and Reports other (Mucous Membranes moist.) Cardiovascular: Cardiovascular: Denies chest pain, Denies syncope, Denies leg edema, Denies lightheadedness, Denies radiating jaw, neck or arm pain and Denies dyspnea Respiratory: Respiratory: Denies cough, Denies pain on inspiration, Denies dyspnea and Denies wheezing Genitourinary: Genitourinary: Reports no additional female genitourinary complaints, Denies hematuria, Denies dysuria, Denies urinary hesitancy and Denies urinary urgency Musculoskeletal: Musculoskeletal: Denies deformity, Denies joint swelling, Denies radiating pain into limb, Denies tingling and Reports other (No calf swelling or edema) Integumentary/Breasts: Skin/Breast: Reports system reviewed and no additional complaints, except as docu, Denies pruritus, Denies jaundice and Reports other (denies complaints of abdominal incisions) Allergic/Immunologic: Allergic/Immunologic: Denies wheezing Exam Const: General: cooperative, healthy appearing, comfortable, no acute distress, alert, awake and uncomfortable; No confusion Nutritional Appearance: average body habitus, well nourished and thin Orientation/consciousness: patient oriented x3 and No confusion Limitations: no limitations HENMT: Head: normal to inspection, normocephalic and atraumatic Ears: hearing grossly normal bilaterally and external ears normal General nose exam: Normal external nose present Mouth: Yes Normal oral and palatal mucosa present and Yes moist mucous membranes Eyes: General: appearance normal, both eyes and all related structures Sclera: sclerae normal Pupils: Equal, round and reactive pupils present EOM: EOMs intact bilaterally Neck: Neck: normal visual inspection and full ROM Chest: Chest palpation & inspection: normal inspection of the chest Resp: Effort & Inspection: normal respiratory effort, able to
[2020-08-03] MEDS: ESCITALOPRAM OXALATE 10 MG TABLET 20 MG PO (21:27)
[2020-08-03] MEDS: FAMOTIDINE 20 MG TABLET PO (21:28)
[2020-08-03] MEDS: diphenhydrAMINE HCl INJ 50 MG/ML VIAL IV PUSH (21:36)
[2020-08-04] VITALS (7 sets, daily range): BP systolic 115–144; BP diastolic 55–62; PULSE 64–80; RESP 16–18; TEMP 36.7–37.2; O2SAT 94–100
[2020-08-04] MEDS: METOPROLOL TARTRATE INJ 5 MG/5 ML VIAL IV PUSH (04:29)
[2020-08-04] MEDS: IBUPROFEN IV 800 MG/200 ML 800 MG/200 ML BAG 400 MG IVPB (04:31)
[2020-08-04 05:52] LABS: Anion Gap 4 mmol/L (8-16); Blood Urea Nitrogen 6 mg/dL (7-17); Calcium 7.8 mg/dL (8.4-10.2); Carbon Dioxide 27 mmol/L (22-30); Chloride 105 mmol/L (98-107); Estimated CRCL calculation 60 ml/min; Estimated Glomerular Filt Rate > 60; Glucose 95 mg/dL (65-105); Potassium 4.1 mmol/L (3.4-5.0); Sodium 136 mmol/L (137-145)
[2020-08-04 06:01] LABS: Hematocrit 36.5 % (37.0-47.0); Hemoglobin 12.5 g/dL (12.0-15.0); Mean Corpuscular HGB Conc 34.2 g/dl (32-36); Mean Corpuscular Hemoglobin 35.4 pg (26-34); Mean Corpuscular Volume 103.4 fl (80-100); Mean Platelet Volume 11.2 fl (7.4-10.4); Platelet Count Result 136 k/mm3 (150-375); Red Blood Count 3.53 M/mm3 (4.2-5.4); Red Cell Distribution Width 12.2 % (11.5-14.5); White Blood Count 7.2 K/mm3 (4.5-10.0)
[2020-08-04] MEDS: ENOXAPARIN 40 MG/0.4 ML SYRINGE SUB-Q (07:50)
[2020-08-04] MEDS: FAMOTIDINE 20 MG TABLET PO ×2 (07:50→19:57)
--- NOTE | 2020-08-04 08:34 | PM.PNGS ---
Progress Note: A&P Assessment and Plan (1) Small intestine obstruction: Onset Date: ~07/31/20 Code(s): K56.609 - Unspecified intestinal obstruction, unspecified as to partial versus complete obstruction Status: Acute Assessment and Plan: Although still distended, patient has active, normal bowel sounds. Will advance diet. She does have 1 to 2+ lower extremity edema and is markedly positive for fluid. Will go ahead and give a dose of Bumex and potassium supplementation today. Increase ambulation. Making good progress. Wound is healing well (2) S/P right colectomy: Code(s): Z90.49 - Acquired absence of other specified parts of digestive tract Status: Chronic (3) Paroxysmal atrial fibrillation: Onset Date: Unknown Code(s): I48.0 - Paroxysmal atrial fibrillation Status: Chronic Assessment and Plan: no recurrence this admission (4) Chronic anticoagulation: Code(s): Z79.01 - buttermaker helper (current) use of anticoagulants Status: Chronic Assessment and Plan: restart Xarelto today (5) Hypertension: Onset Date: Unknown Code(s): I10 - Essential (primary) hypertension Status: Chronic Assessment and Plan: restart home meds. Subjective Subjective Date/Time Seen: 08/04/20 08:34 Post Op day: 3 Patient reports: no new complaints, feels better, tolerating liquids well, bowel movement and afebrile Review of Systems Review of Systems: All systems reviewed & are unremarkable except as noted in HPI and below Constitutional: Constitutional: Denies chills, Denies fever(s) and Denies headache(s) Cardiovascular: Cardiovascular: Denies chest pain and Denies dyspnea Respiratory: Respiratory: Denies cough and Denies dyspnea Gastrointestinal: Gastrointestinal: Reports as per HPI, Denies GI cramping, Reports diarrhea, Denies nausea and Denies vomiting Neurologic: Denies confusion and Denies headache(s) Exam Const: General: comfortable and no acute distress; No confusion Orientation/consciousness: patient oriented x3 and No confusion GI: Inspection: distended and incision (healing well) GI Palp: Yes Soft to palpation, Yes Tenderness to palpation present (GI) (mild appropriate tenderness), No Guarding due to palpation present (GI) and No Rebound tenderness present Percussion: Yes tympanic to percussion Auscultation: normoactive bowel sounds Neuro: General: patient oriented x3, no focal motor deficits and No confusion Extrem: General: edema bilateral (1+ pitting) Psych: Affect: normal affect Insight: Good insight present (Psych) Judgement: Good judgement present (Psych) Objective Data Vital Signs Vital Signs: Vital Signs - 24 hr 08/03/20 10:47 08/03/20 14:00 08/03/20 17:28 Temperature 37.3 C Pulse Rate 64 87 68 Respiratory Rate 16 Blood Pressure 153/59 H Pulse Oximetry 95 08/03/20 20:40 08/03/20 22:00 08/03/20 22:06 Temperature 36.4 C Pulse Rate 62 66 62 Respiratory Rate 18 18 Blood Pressure 146/52 H Pulse Oximetry 100 100 08/04/20 04:29 08/04/20 06:00 Temperature 36.7 C Pulse Rate 68 64 Respiratory Rate 16 Blood Pressure 115/62 Pulse Oximetry 100 Intake/Output Intake/Output: Intake & Output 08/01/20 08/02/20 08/03/20 08/04/20 23:59 23:59 23:59 23:59 Intake Total 2950 2980 2160 1250 Output Total 1300 1910 1400 Balance 1650 3471 907 0104 Meds/Results Medications: Active Medications Generic Name Dose Route Start Last Admin Trade Name Freq PRN Reason Stop Dose Admin Diphenhydramine HCl 50 mg 07/30/20 10:10 08/03/20 21:36 Diphenhydramine Hcl Inj 50 Mg/Ml Vial IV PUSH 50 mg Q6H PRN Administration Sleep Enoxaparin Sodium 40 mg 07/30/20 09:00 08/04/20 07:50 Enoxaparin 40 Mg/0.4 Ml Syringe SUB-Q 40 mg DAILY OMER Administration Escitalopram Oxalate 20 mg 07/29/20 21:00 08/03/20 21:27 Escitalopram Oxalate 10 Mg Tablet PO 20 mg HS
[2020-08-04] MEDS: lisinopriL 10 MG TABLET PO (09:17)
[2020-08-04] MEDS: SPIRONOLACTONE 25 MG TABLET PO (09:17)
[2020-08-04] MEDS: METOPROLOL TARTRATE 12.5 MG TABLET PO ×2 (09:17→19:57)
[2020-08-04] MEDS: BUMETANIDE INJ 1 MG/4 ML VIAL 2 MG IV PUSH (09:18)
[2020-08-04] MEDS: POTASSIUM CHLORIDE 20 MEQ TABLET.ER 40 MEQ PO (17:07)
[2020-08-04] MEDS: ESCITALOPRAM OXALATE 10 MG TABLET 20 MG PO (19:56)
[2020-08-04] MEDS: RIVAROXABAN 20 MG TABLET PO (19:59)
[2020-08-04] MEDS: diphenhydrAMINE HCl INJ 50 MG/ML VIAL IV PUSH (21:04)
[2020-08-04] MEDS: HYDROcodone/acetaminophen (*CRX) 5-325 MG TABLET 1 TAB PO (23:58)
[2020-08-05] MEDS: LORazepam INJ (*CRX) 2 MG/ML VIAL 0.5 MG IV PUSH (00:06)
[2020-08-05 06:00] VITALS: BP 135/61; PULSE 66; RESP 18; TEMP 36.9; O2SAT 98
[2020-08-05 07:05] LABS: Hematocrit 34.3 % (37.0-47.0); Mean Corpuscular Hemoglobin 35.1 pg (26-34); Mean Corpuscular Volume 100.3 fl (80-100); Mean Platelet Volume 9.1 fl (7.4-10.4); Platelet Count Result 322 k/mm3 (150-375); Red Blood Count 3.42 M/mm3 (4.2-5.4); Red Cell Distribution Width 11.9 % (11.5-14.5); White Blood Count 5.8 K/mm3 (4.5-10.0)
[2020-08-05 07:21] LABS: Anion Gap 7 mmol/L (8-16); Blood Urea Nitrogen 8 mg/dL (7-17); Calcium 8.1 mg/dL (8.4-10.2); Carbon Dioxide 26 mmol/L (22-30); Chloride 103 mmol/L (98-107); Estimated CRCL calculation 70 ml/min; Estimated Glomerular Filt Rate > 60; Glucose 96 mg/dL (65-105); Potassium 3.9 mmol/L (3.4-5.0); Sodium 136 mmol/L (137-145)
[2020-08-05] MEDS: lisinopriL 10 MG TABLET PO (08:49)
[2020-08-05 08:50] VITALS: PULSE 70
[2020-08-05] MEDS: POTASSIUM CHLORIDE 20 MEQ TABLET.ER 40 MEQ PO (08:50)
[2020-08-05] MEDS: ENOXAPARIN 40 MG/0.4 ML SYRINGE SUB-Q (08:50)
[2020-08-05] MEDS: METOPROLOL TARTRATE 12.5 MG TABLET PO (08:50)
[2020-08-05] MEDS: FAMOTIDINE 20 MG TABLET PO (08:50)
[2020-08-05] MEDS: SPIRONOLACTONE 25 MG TABLET PO (08:52)
--- NOTE | 2020-08-05 09:27 | PCNWS ---
Weekly nutritional screen. Patient is tolerating current diet-low fiber with Ensure Surgery BID with adequate [id number]% of trays. No weight loss reported. Patient instruction attached for low fiber diet. No nutritional needs at this time.
--- NOTE | 2020-08-05 10:29 | PM.DS ---
DS: Admitting Diagnosis Admitting Diagnosis Admitting Diagnosis: Small-bowel obstruction DS: Discharge Diagnosis Discharge Diagnosis (1) Small intestine obstruction: Onset Date: ~07/31/20 Code(s): K56.609 - Unspecified intestinal obstruction, unspecified as to partial versus complete obstruction Status: Acute Assessment and Plan: resection ileo transverse anastomosis, creation new ileotransverse anastomosis with closure mesenteric defect 08/01/2020 (2) S/P right colectomy: Code(s): Z90.49 - Acquired absence of other specified parts of digestive tract Status: Chronic Assessment and Plan: 07/25/2020 for cecal volvulus (3) Paroxysmal atrial fibrillation: Onset Date: Unknown Code(s): I48.0 - Paroxysmal atrial fibrillation Status: Chronic Assessment and Plan: Xarelto restarted prior to discharge. No episodes of atrial fibrillation. (4) Chronic anticoagulation: Code(s): Z79.01 - detention (current) use of anticoagulants Status: Chronic Assessment and Plan: Back on Xarelto. (5) Hypertension: Onset Date: Unknown Code(s): I10 - Essential (primary) hypertension Status: Chronic Assessment and Plan: Home meds resumed. 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 This partially reduced and she was able to be taken to surgery the next day, July 25, and had hand access laparoscopic right colectomy. She did well initially after the surgery and was discharged on July 27. Unfortunately, the patient experienced nausea distension and abdominal pain with vomiting and came back to the emergency room the following evening, 07/28/2020. Evaluation including CT scan of the abdomen and pelvis showed evidence of a small-bowel obstruction. NG tube was placed and the patient was given IV fluids and followed with serial exams, abdominal films and lab work. Unfortunately, she did not improve. Upper GI small-bowel series on 07 31 showed persistent small-bowel obstruction. She was returned to surgery on August 01 and underwent exploration. She was noted to have a partial volvulus at the ileotransverse anastomosis. The previous anastomosis was resected. She underwent creation of a new ileotransverse anastomosis. Two layer hand-sewn technique was performed. The mesenteric defect was closed as well. Following this surgery, she did well. She had an expected ileus for a couple of days but on 08/03/2020, her NG was removed and she was started on clear liquids. Her diet was advanced on 08/04. She was taking minimal amounts of pain medication and was quite comfortable. She does have paroxysmal atrial fibrillation and started back on her Xarelto on 08/04/2020 as well. She is doing well today 08/05/2020 and is discharged in improved condition. Exam GI: Inspection: distended and incision ( Healing well) GI Palp: Yes Soft to palpation and Yes Tenderness to palpation present (GI) Auscultation: normoactive bowel sounds DS: Data Data Completed and Pending Completed studies during hospitalization: Pending at discharge 08/01/20 11:41 Surgical [PTH] Routine Labs on day of discharge: Labs from last 24 hours 08/05/20 08/05/20 06:15 06:15 WBC 5.8 RBC 3.42 L Hgb 12.0 Hct 34.3 L MCV 100.3 H MCH 35.1 H MCHC 35.0 RDW 11.9 Plt Count 322 D MPV 9.1 Sodium 136 L Potassium 3.9 Chloride 103 Carbon Dioxide 26 Anion Gap 7 L BUN 8 Creatinine 0.60 L Estim Creat Clear Calc 70 Estimated GFR > 60 Glucose 96 Calcium 8.1 L Discharge Plan Discharge Attending morena
== END 2020-08-05 11:15 | disposition home or self-care (01) | DRG 331 ==
LOC: ANHED 22:37 → ANH3MEDSUR 23:33
PROVIDERS: Emergency Medicine; Surgery; Admitting Provider Surgery; Emergency Provider Emergency Medicine; PCP Family Medicine; Visit Provider Surgery
PROC: 0DBB0ZZ Excision of Ileum, Open Approach (ICD-10-PCS; CPT 49000; principal; 2020-08-01 11:00)
DX: K91.30 Postprocedural intestinal obstruction, unspecified as to partial versus complete (principal); K56.0 Paralytic ileus; I48.0 Paroxysmal atrial fibrillation; I10 Essential (primary) hypertension; G47.33 Obstructive sleep apnea (adult) (pediatric); Z79.01 Long term (current) use of anticoagulants; F32.9 Major depressive disorder, single episode, unspecified; Z90.710 Acquired absence of both cervix and uterus; Z90.49 Acquired absence of other specified parts of digestive tract
CPT/HCPCS: 36415; 74018; 74019; 74177; 74240; 74248; 74250; 80048; 80053; 83690; 83735; 85025; 85027; 88307; 96361; 96374; 96375; 96376; 99285; A9270; C9290; G0378; J0330; J0690; J1100; J1170; J1200; J1650; J1741; J1885; J2060; J2250; J2405; J2704; J3010; J3480; J7120; Q9967

== ENCOUNTER 2020-10-30 13:08 | Outpatient (CLI) | payer MEDICARE, SELFPAY ==
--- NOTE | ~2020-10-30 | US_ITS ---
EXAMINATION: US art doppler w press UE BI DATE: 10/30/2020 14:17 INDICATION: Throat embolism of the left upper extremity and skin discoloration with purple left third digit. TECHNIQUE: Segmental pressures and plethysmographic and Doppler waveforms of the upper extremity roberto coy were obtained. COMPARISON: None. FINDINGS: Right and left brachial artery pressures of 101 mm Hg and 111 mm Hg, respectively, are concordant (no rmal difference <= 30 mmHg). The right finger:brachial systolic pressure ratio is 1.05 (normal > 0.8) . Segmental pressure gradients are normal. Arterial waveforms are triphasic at the right brachial and ulnar arteries and biphasic in the remaining arteries with brisk systolic upstrokes throughout (norm al upstroke < 0.2 s). The left finger:brachial systolic pressure ratio is 1.25. Segmental pressure gradients are normal. Ar terial waveforms are triphasic at the left brachial artery and biphasic in the remaining arteries wit h brisk systolic upstrokes throughout. IMPRESSION: 1. No significant arterial occlusive disease to either upper limb with normal bilateral finger brachi al indices. Reviewed, dictated and finalized at location A. INSTRUCTOR IMPRESSION: 1. No significant arterial occlusive disease to either upper limb with normal b ilateral finger brachial indices.
--- NOTE | ~2020-10-30 | US_ITS ---
EXAMINATION: US venous doppler [facility] DATE: 10/30/2020 14:17 INDICATION: Discoloration and swelling of the left upper limb TECHNIQUE: Grayscale images without and with compression and Doppler images of the bilateral upper ex tremity veins were obtained. COMPARISON: None. FINDINGS: The right internal jugular vein, subclavian vein, axillary vein, brachial vein, basilic vein, cephali c vein, radial vein, and ulnar vein are patent. The left internal jugular vein, subclavian vein, axillary vein, brachial vein, basilic vein, cephalic vein, radial vein, and ulnar vein are patent. IMPRESSION: 1. Patent bilateral upper extremity veins. No evidence of venous thrombosis. Reviewed, dictated and finalized at location A. ROLLER MECHANIC
== END 2020-10-30 13:09 | disposition home or self-care (01) ==
PROVIDERS: PCP Family Medicine; Visit Provider Nurse Practitioner Family
DX: I75.012 Atheroembolism of left upper extremity (principal); R22.32 Localized swelling, mass and lump, left upper limb
CPT/HCPCS: 93923; 93970

== ENCOUNTER → 2020-11-12 08:46 | Outpatient (CLI) | payer MEDICARE, SELFPAY ==
--- NOTE | ~2020-11-12 | MMUS_ITS ---
EXAMINATION: MM diagnostic anabel BI w ray, US breast BI complete HISTORY: Follow-up breast calcifications TECHNIQUE: Additional 3-D tomosynthesis images of the breasts were performed and synthetic 2-D images were generated. CAD analysis was submitted and interpreted. High resolution complete bilateral breas t ultrasound was performed. COMPARISON: Comparison to multiple prior studies sequentially, with oldest reviewed study dated 07/14. BREAST PARENCHYMAL COMPOSITION: The breasts are extremely dense, which lowers the sensitivity of mamm ography. FINDINGS: MAMMOGRAPHIC FINDINGS: There are stable benign-appearing calcifications in the upper central aspect of the left breast. Ther e are also benign-appearing right breast calcifications. No discrete masses or architectural distorti on. ULTRASOUND: Right breast ultrasound: At 8:00, 4 cm from the nipple, there is a 5 mm cyst. At 9:00, 4 cm from the nipple, there is a 3 mm complicated cysts. At 9:00, 3 cm from the nipple, there is an oval hypoechoic mass measuring 7 mm, likely a complicated cyst. Left breast ultrasound: At 2:00, 6 cm from the nipple there is a 4 mm cyst. At 9:00, 3.5 cm from the nipple, there is an oval hypoechoic mass measuring 3 mm with low-level internal echoes, likely a comp licated cyst. IMPRESSION: 1. Probable benign left breast calcifications and bilateral breast masses. 2. Recommend 6 month follow-up diagnostic left mammogram and bilateral breast ultrasound. BI-RADS category 3, probably benign findings. Reviewed, dictated and finalized at location A. OR CATEGORY MANAGER IMPRESSION: 1. Probable benign left breast calcifications and bilateral breast masses. 2. Recommend 6 month follow-up diagnostic left mammogram and bilateral breast u ltrasound. BI-RADS category 3, probably benign findings.
== END ==
PROVIDERS: Visit Provider Obstetrics & Gynecology
DX: Z12.31 Encounter for screening mammogram for malignant neoplasm of breast (principal); R92.8 Other abnormal and inconclusive findings on diagnostic imaging of breast
CPT/HCPCS: 76641; 77062; 77066; G0279

== ENCOUNTER → 2021-05-19 07:58 | Outpatient (CLI) | payer MEDICARE, SELFPAY ==
--- NOTE | ~2021-05-19 | MMUS_ITS ---
EXAMINATION: MM diagnostic anabel LT w ray, US breast BI limited HISTORY: Six-month follow-up: Left breast mammographic calcifications and bilateral breast masses. TECHNIQUE: ML, MLO and craniocaudal 3-D tomosynthesis images of the left breast were performed and sy nthetic 2-D images were generated. ML and craniocaudal magnification views of left breast. CAD analys is was submitted and interpreted. High resolution targeted bilateral breast ultrasound was performed. COMPARISON: 11/12/2020 bilateral digital screening mammogram and bilateral complete breast ultrasound BREAST PARENCHYMAL COMPOSITION: The breasts are extremely dense, which lowers the sensitivity of mamm ography. FINDINGS: MAMMOGRAPHIC FINDINGS: Scattered solitary grouped microcalcifications are stable and remain benign in appearance, primarily rounded or oval. Dense stroma is again noted, which reduces the sensitivity to mammographic examination. No suspicious mass or architectural distortion is detected mammographically. ULTRASOUND: No suspicious mass or shadowing of either breast is evident. Right breast: 8:00 4 cm from nipple: 4.8 mm circumscribed hypoechoic lesion without suspicious shadowing 9:00 4 cm from nipple: 3.3 x 7.1 parallel circumscribed hypoechoic lesion with through transmission 9:00 3 cm from nipple: 2.1 x 4.2 x 4.9 mm circumscribed oval parallel hypoechoic lesion without poste rior shadowing Left breast: 9:00 3.5 cm from nipple: 2.9 mm sonolucency with through transmission posterior enhancement consisten t with small cyst 11:00 3 cm from nipple: 2.5 x 3.2 mm circumscribed hypoechoic lesion without suspicious shadowing 2:00 6 cm from nipple: 2.6 x 3.5 mm circumscribed hypoechoic lesion without suspicious shadowing 2:00 6 cm from nipple: 2 x 2 0.8 mm sonolucent circumscribed lesion 2:00 6 cm from nipple: 1.8 x 5.2 mm circumscribed parallel hypoechoic lesion without suspicious shado wing IMPRESSION: 1. No mammographic evidence of malignancy 2. Routine mammographic screening is recommended BI-RADS Category 2: Benign finding(s). Reviewed, dictated and finalized at location A. IMPRESSION: 1. No mammographic evidence of malignancy 2. Routine mammographic screening is recommended BI-RADS Category 2: Benign finding(s).
== END ==
PROVIDERS: PCP Family Medicine; Visit Provider Obstetrics & Gynecology
DX: R92.8 Other abnormal and inconclusive findings on diagnostic imaging of breast (principal)
CPT/HCPCS: 76642; 77061; 77065; G0279

== ENCOUNTER → 2021-11-16 10:11 | Outpatient (CLI) | payer MEDICARE, SELFPAY ==
--- NOTE | ~2021-11-16 | MM_ITS ---
EXAMINATION: MM screening anabel BI w ray HISTORY: Screening TECHNIQUE: Craniocaudal and mediolateral oblique 3-D tomosynthesis images were obtained and synthetic 2-D images were generated. CAD analysis was submitted and interpreted. COMPARISON: Comparison to multiple prior studies sequentially, with oldest reviewed study dated 09/29. BREAST PARENCHYMAL COMPOSITION: The breasts are extremely dense, which lowers the sensitivity of mamm ography FINDINGS: Stable bilateral breast calcifications. There is no evidence of suspicious mass, calcificat ion, or architectural distortion to suggest malignancy in either breast. There has been no suspicious interval change. IMPRESSION: 1. No mammographic evidence of malignancy. 2. Recommend routine screening mammography in one year. BI-RADS Category 2: Benign finding(s). Reviewed, dictated and finalized at location A. HALMIC SURGEON
== END ==
PROVIDERS: PCP Obstetrics & Gynecology; Visit Provider Obstetrics & Gynecology
DX: Z12.31 Encounter for screening mammogram for malignant neoplasm of breast (principal)
CPT/HCPCS: 77063; 77067

== ENCOUNTER → 2022-11-29 10:55 | Outpatient (CLI) | payer MEDICARE, SELFPAY ==
--- NOTE | ~2022-11-29 | MM_ITS ---
EXAMINATION: MM screening anabel BI w ray HISTORY: Screening TECHNIQUE: Craniocaudal and mediolateral oblique 3-D tomosynthesis images were obtained and synthetic 2-D images were generated. CAD analysis was submitted and interpreted. COMPARISON: Comparison to multiple prior studies sequentially, with oldest reviewed study dated 10/06. BREAST PARENCHYMAL COMPOSITION: The breasts are extremely dense, which lowers the sensitivity of mamm ography. FINDINGS: There is no evidence of suspicious mass, calcification, or architectural distortion to sugg est malignancy in either breast. There has been no suspicious interval change. IMPRESSION: 1. No mammographic evidence of malignancy. 2. Recommend routine screening mammography in one year. BI-RADS Category 1: Negative Reviewed, dictated and finalized at location A.
== END ==
PROVIDERS: PCP Family Medicine; Visit Provider Obstetrics & Gynecology
DX: Z12.31 Encounter for screening mammogram for malignant neoplasm of breast (principal)
CPT/HCPCS: 77063; 77067

== ENCOUNTER 2022-12-20 07:48 | Outpatient (CLI) | payer MEDICARE, SELFPAY ==
--- NOTE | ~2022-12-20 | MR_ITS ---
EXAMINATION: MR brain/brain stem wo/w con DATE: 12/20/2022 08:50 INDICATION: Memory loss. TECHNIQUE: Magnetic resonance imaging (MRI) of the brain and brainstem was performed without and with 10 mL MultiHance intravenous contrast. COMPARISON: None. FINDINGS: There is a focus of increased T2-weighted signal intensity in the left frontal lobe deep wh ite matter, which is within normal limits for the patient's age. There is no intracranial hemorrhage, acute infarction, or abnormal intracranial mass lesion. The ventricles are normal in size. The paran isaias sinuses are clear. The orbits are normal. The mastoid air cells are normal. IMPRESSION: 1. Normal aging brain. Reviewed, dictated and finalized at location A. IMPRESSION: 1. Normal aging brain.
== END 2022-12-20 07:49 | disposition home or self-care (01) ==
PROVIDERS: PCP Family Medicine; Visit Provider Nurse Practitioner Family
DX: R41.3 Other amnesia (principal); R41.89 Other symptoms and signs involving cognitive functions and awareness
CPT/HCPCS: 70553; A9577

== ENCOUNTER 2022-12-27 01:30 | Day surgery (SDC) | payer MEDICARE, SELFPAY ==
[2022-12-22 10:27] VITALS: BMI 20.1
--- NOTE | ~2022-12-27 | XR_ITS ---
EXAMINATION: XR_ENEMABAC_CR DATE: 12/27/2022 09:51 INDICATION: Limited colonoscopy due to tortuous colon. TECHNIQUE: A veneer lathe operator radiograph was obtained. A catheter was inserted into the patient's rectum. Contra st was infused by gravity. Gas was infused by hand pump. A total of 55 fluoroscopic spot images and 1 1 conventional radiographs were obtained. Fluoroscopy exposure time was 2.2 minutes. COMPARISON: CT dated 07/29/2020 FINDINGS: In a few unchanged sclerotic bone islands compartment on the veneer lathe operator radiographs, the most prominent at the right iliac wing and on the left side of technetium. Status post right hemicolectomy with small amount of contrast extending beyond the ileocolic anastomosis into the distal ileum. The sigmoid colo n is tortuous resulting in suboptimal evacuation of contrast from the colon which mildly limits evalu ation. No strictures, mucosal irregularities, diverticula, polyps or other abnormal intraluminal fill ing defects. IMPRESSION: 1. Status post right hemicolectomy with tortuous sigmoid colon. Otherwise unremarkable double contras t enema. Reviewed, dictated and finalized at location A. IMPRESSION: 1. Status post right hemicolectomy with tortuous sigmoid colon. Otherwise unrem arkable double contrast enema.
[2022-12-27 06:30] VITALS: BP 109/52; PULSE 50; RESP 18; TEMP 36.6; O2SAT 100; BMI 18.8
[2022-12-27] MEDS: LACTATED RINGERS 1,000 ML 150 ML IV CONT (06:40)
--- NOTE | 2022-12-27 07:34 | WPDANESEPPF ---
Anes - Initial Pre Proc Eval Procedure: Operation Date: 12/27/22 07:30 Proposed Procedures p Colonoscopy - Lacho Street MD Date/Time: 12/27/22 07:34 Surgeon: Lacho Street MD Pre Op Diagnosis: family hx colon colon ca, diarrhea,other fecal abn Patient Data Age: 67 Gender: F Height: 1.65 m Weight: 51.3 kg Last Vital Signs Temp 97.8 F 12/27/22 06:30 Pulse 50 L 12/27/22 06:30 Resp 18 12/27/22 06:30 BP 109/52 L 12/27/22 06:30 Pulse Ox 100 12/27/22 06:30 O2 Del Method Room Air 12/27/22 06:30 Allergies Allergy/AdvReac Type Severity Reaction Status Date / Time Penicillins Allergy Intermediate HIVES Verified 12/27/22 06:27 latex Allergy Mild RASH Verified 12/27/22 06:27 Home Medications Medication Instructions Recorded Confirmed Type finasteride 5 mg tablet 2.5 mg PO DAILY 07/24/20 12/27/22 History lisinopril 5 mg tablet 7.5 mg PO DAILY 07/24/20 12/27/22 History metoprolol tartrate 25 mg tablet 12.5 mg PO BID 07/24/20 12/27/22 History rivaroxaban 20 mg tablet (Xarelto) 20 mg PO HS 07/24/20 12/27/22 History spironolactone 25 mg tablet 25 mg PO DAILY 07/24/20 12/27/22 History flecainide 100 mg tablet 100 mg PO Q12H PRN Tachycardia 12/01/21 12/27/22 History eluxadoline 75 mg tablet (Viberzi) 75 mg PO DAILY #30 tabs 11/01/22 12/27/22 Rx Citracal-D3 Maximum Plus 2 cap PO DAILY 12/22/22 12/27/22 History Progesterone in Oil 1 mg sublingual DAILY 12/22/22 12/27/22 History cholecalciferol (vitamin D3) 50 50 mcg PO BID 12/22/22 12/27/22 History mcg (2,000 unit) capsule (Vitamin D3) cranberry conc-ascorbic acid 2 cap PO DAILY 12/22/22 12/27/22 History escitalopram oxalate 20 mg tablet 20 mg PO HS 12/22/22 12/27/22 History flaxseed oil 1,000 mg capsule 1,000 mg PO DAILY 12/22/22 12/27/22 History byhmsgzo-owflcjf-sech-lutein tablet 1 tablet PO DAILY 12/22/22 12/27/22 History omega 2-sno-qtq-fish oil 1,200 mg 1 cap PO DAILY 12/22/22 12/27/22 History (144 mg-216 mg) capsule (Fish Oil) Patient hx anesthesia problems: none Family hx anesthesia problems: none Results Review: All pre-operative results and documents have been reviewed as part of the pre-operative evaluation. [facility] Past Medical History Medical History Anxiety disorder, unspecified Atrial fibrillation BMI between 19-24,adult Depression Diarrhea Finger dysfunction Hypertension (Unknown) Obstructive sleep apnea Surgical History Surgical History H/O hysterectomy for benign disease Laparoscopic LOVE-BSO S/P right colectomy 07/25/20 DELIA right colctomy for cecal volvulus Family History Family History Mother Colon cancer Father Hypertension Acute myocardial infarction Cerebrovascular accident AAA (abdominal aortic aneurysm) Sibling Hypertension Social History Social History Social History: Ms. Garcia lives at home with her . She is independent in her ADLs. 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 She designates her , Roshan, as her surrogate decision maker. She would like to be a full code. Smoking status: Never smoker Second hand tobacco smoke exposure: No Alcohol intake: current Drinks per week: 2 Substance use: never Substance use type: does not use Lack of Transportation: No Lack of Food: Never True Current Housing: I Have Housing Concerned About Future Housing: No Difficulty Paying Gas/Electric Bills: No Difficulty Paying for Meds: No Currently Unemployed: No Education: Bachelor's Degree Difficulty w/ Childcare or Family Care: No Living arrangements: with family Additional living arrangements comments: Lives with , Billy. Occupation/Education: retired Additional occupation/education comments:
--- NOTE | 2022-12-27 07:54 | PM.HPGS ---
History of Present Illness History of Present Illness Consent: Risks, benefits, and alternatives have been discussed and questions answered. Patient agrees to proceed with procedure. Chief complaint: family hx colon colon ca, diarrhea,other fecal abn Narrative: Nasreen Garcia is a 67 year old female Presents for screening colonoscopy. Patient's mother has had colon cancer. Patient has a long history of irregular bowel movements with diarrhea predominance intermittently. Attributed to irritable bowel syndrome. 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 Most recent colonoscopy was 2018. Patient denies any blood in her stools. Review of Systems Review of Systems: Review of systems noncontributory. [facility] Past Medical History Medical History Anxiety disorder, unspecified Atrial fibrillation BMI between 19-24,adult Depression Diarrhea Finger dysfunction Hypertension (Unknown) Obstructive sleep apnea Surgical History Surgical History H/O hysterectomy for benign disease Laparoscopic LOVE-BSO S/P right colectomy 07/25/20 DELIA right colctomy for cecal volvulus Family History Family History Mother Colon cancer Father Hypertension Acute myocardial infarction Cerebrovascular accident AAA (abdominal aortic aneurysm) Sibling Hypertension Social History Social History Social History: Ms. Garcia lives at home with her . She is independent in her ADLs. 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 She designates her , Roshan, as her surrogate decision maker. She would like to be a full code. Smoking status: Never smoker Second hand tobacco smoke exposure: No Alcohol intake: current Drinks per week: 2 Substance use: never Substance use type: does not use Lack of Transportation: No Lack of Food: Never True Current Housing: I Have Housing Concerned About Future Housing: No Difficulty Paying Gas/Electric Bills: No Difficulty Paying for Meds: No Currently Unemployed: No Education: Bachelor's Degree Difficulty w/ Childcare or Family Care: No Living arrangements: with family Additional living arrangements comments: Lives with Billy. Occupation/Education: retired Additional occupation/education comments: Teacher-[employer] Gender identity (if verbalized by the patient): Female Sexual Orientation (if Verbalized by the Patient): Straight or Heterosexual Spiritual care concerns: No Meds Home Medications and Allergies Home Medications Medication Instructions Recorded Confirmed Type finasteride 5 mg tablet 2.5 mg PO DAILY 07/24/20 12/27/22 History lisinopril 5 mg tablet 7.5 mg PO DAILY 07/24/20 12/27/22 History metoprolol tartrate 25 mg tablet 12.5 mg PO BID 07/24/20 12/27/22 History rivaroxaban 20 mg tablet (Xarelto) 20 mg PO HS 07/24/20 12/27/22 History spironolactone 25 mg tablet 25 mg PO DAILY 07/24/20 12/27/22 History flecainide 100 mg tablet 100 mg PO Q12H PRN Tachycardia 12/01/21 12/27/22 History eluxadoline 75 mg tablet (Viberzi) 75 mg PO DAILY #30 tabs 11/01/22 12/27/22 Rx Citracal-D3 Maximum Plus 2 cap PO DAILY 12/22/22 12/27/22 History Progesterone in Oil 1 mg sublingual DAILY 12/22/22 12/27/22 History cholecalciferol (vitamin D3) 50 50 mcg PO BID 12/22/22 12/27/22 History mcg (2,000 unit) capsule (Vitamin D3) cranberry conc-ascorbic acid 2 cap PO DAILY 12/22/22 12/27/22 History escitalopram oxalate 20 mg tablet 20 mg PO HS 12/22/22 12/27/22 History flaxseed oil 1,000 mg capsule 1,000 mg PO DAILY 12/22/22 12/27/22 History lapujnnu-djtweux-elwg-lutein tablet 1 tablet PO DAILY 12/22/22 12/27/22 History omega 0-fbm-vls-fish oil 1,200 mg 1 cap PO LEOBARDO
[2022-12-27 07:59] VITALS: BP 122/59; PULSE 68; RESP 21; O2SAT 100
[2022-12-27 08:09] VITALS: BP 100/46; PULSE 60; RESP 22; O2SAT 100
[2022-12-27 08:19] VITALS: BP 119/59; PULSE 55; RESP 19; O2SAT 100
[2022-12-27 08:29] VITALS: BP 119/75; PULSE 57; RESP 22; O2SAT 100
== END 2022-12-27 08:55 | disposition home or self-care (01) ==
PROVIDERS: PCP Family Medicine; Visit Provider Internal Medicine Gastroenterology
PROC: 0DJD8ZZ Inspection of Lower Intestinal Tract, Via Natural or Artificial Opening Endoscopic (ICD-10-PCS; CPT 45378; principal; 2022-12-27 07:30)
DX: R19.4 Change in bowel habit (principal); K64.8 Other hemorrhoids; K63.89 Other specified diseases of intestine; Z90.49 Acquired absence of other specified parts of digestive tract; Z80.0 Family history of malignant neoplasm of digestive organs; I48.91 Unspecified atrial fibrillation; I10 Essential (primary) hypertension; G47.33 Obstructive sleep apnea (adult) (pediatric); F41.9 Anxiety disorder, unspecified; F32.A Depression, unspecified; Z79.01 Long term (current) use of anticoagulants
CPT/HCPCS: 45378; 74280; J2704; J7120

== ENCOUNTER 2023-10-17 07:44 | Outpatient (CLI) | payer MEDICARE, SELFPAY ==
--- NOTE | ~2023-10-17 | US_ITS ---
EXAMINATION: US right upper quadrant DATE: 10/17/2023 09:00 INDICATION: R74.8 - Abnormal levels of other serum enzymes TECHNIQUE: Multiple grayscale and Doppler ultrasound images of the right upper quadrant were obtained . COMPARISON: None available. FINDINGS: The visualized portions of the pancreas are normal. The liver is normal with normal echogen icity and echotexture. No surface nodularity. Normal hepatopetal flow in the main portal vein. The ga llbladder wall is thickened to 4 mm. No pericholecystic fluid. No stones. The common bile duct measur es 3 mm. There was no sonographic Garcia sign. The right kidney length is 9.6 cm, no hydronephrosis IMPRESSION: Nonspecific gallbladder wall thickening. Otherwise normal right upper quadrant ultrasound findings. Reviewed, dictated and finalized at location K. ESS CLERK
== END 2023-10-17 07:45 ==
LOC: MICIMG 07:45
PROVIDERS: PCP Physician Assistant; Visit Provider Physician Assistant
DX: R74.8 Abnormal levels of other serum enzymes (principal)
CPT/HCPCS: 76705

== ENCOUNTER 2024-01-06 10:37 | Outpatient (CLI) | payer MEDICARE, SELFPAY ==
--- NOTE | ~2024-01-06 | MM_ITS ---
EXAMINATION: MM screening anabel BI w ray HISTORY: Screening mammogram TECHNIQUE: Craniocaudal and mediolateral oblique 3-D tomosynthesis images were obtained and synthetic 2-D images were generated. CAD analysis was submitted and interpreted. COMPARISON: 11/29/2022, 11/16/2021 bilateral screening mammogram examinations BREAST PARENCHYMAL COMPOSITION: The breasts are extremely dense, which lowers the sensitivity of mamm ography. FINDINGS: Occasional bilateral benign calcifications. There is no evidence of suspicious mass, calcif ication, or architectural distortion to suggest malignancy in either breast. There has been no suspic ious interval change. IMPRESSION: 1. No mammographic evidence of malignancy. 2. Recommend routine screening mammography in one year. BI-RADS Category 1: Negative Reviewed, dictated and finalized at location A.
== END 2024-01-06 10:38 ==
LOC: MICIMG 10:38
PROVIDERS: PCP Obstetrics & Gynecology; Visit Provider Obstetrics & Gynecology
DX: Z12.31 Encounter for screening mammogram for malignant neoplasm of breast (principal)
CPT/HCPCS: 77063; 77067

== ENCOUNTER 2024-01-10 16:22 | Outpatient (CLI) | payer MEDICARE, SELFPAY ==
--- NOTE | ~2024-01-10 | XR_ITS ---
EXAM: XR hip BI 2V w AP pelvis DATE: 01/10/2024 16:55 HISTORY: M25.559 - Pain in unspecified hip . COMPARISON: None available. FINDINGS: Degenerative changes in the lumbar spine. Decreased mineralization. Mild degenerative almeida ges in the bilateral SI joints, hips, and pubic symphysis. Mild pelvic enthesopathy. Bone island or e nchondroma in the right iliac wing. No fracture or dislocation. IMPRESSION: Osteopenia. No acute osseous finding in the pelvis or bilateral hips. Reviewed, dictated and finalized at location K. IMPRESSION: Osteopenia. No acute osseous finding in the pelvis or bilateral hip s.
--- NOTE | ~2024-01-10 | XR_ITS ---
EXAM: XR knee LT 3V DATE: 01/10/2024 16:55 HISTORY: M25.569 - Pain in unspecified knee . COMPARISON: None available. FINDINGS: Decreased mineralization. No fracture or dislocation. No lytic or blastic lesion. Mild med ial joint space narrowing. Mild tricompartmental osteophytosis. Mild quadriceps enthesopathy. No eros ion or periosteal change. Soft tissues within normal limits. IMPRESSION: Osteopenia. Mild tricompartmental left knee osteoarthritis. Reviewed, dictated and finalized at location K.
--- NOTE | ~2024-01-10 | XR_ITS ---
EXAM: XR lumbar spine min 4V DATE: 01/10/2024 16:55 HISTORY: M54.9 - Dorsalgia, unspecified . COMPARISON: None available. FINDINGS: Decreased mineralization. 5 nonrib-bearing lumbar-type vertebral bodies. Pedicles intact. N o pars defect. Normal vertebral body alignment. Vertebral body heights preserved. Multilevel disc spa ce narrowing and marginal osteophytosis, moderate at L4-5. Moderate lower lumbar facet hypertrophy an d sclerosis. No fracture or dislocation. IMPRESSION: Osteopenia. Moderate degenerative disc disease at L4-5. Moderate lower lumbar facet arthr opathy. Reviewed, dictated and finalized at location K. IMPRESSION: Osteopenia. Moderate degenerative disc disease at L4-5. Moderate lo wer lumbar facet arthropathy.
--- NOTE | ~2024-01-10 | XR_ITS ---
EXAM: XR knee RT 3V DATE: 01/10/2024 16:55 HISTORY: M25.561 - Pain in right knee . COMPARISON: 03/05/2014. FINDINGS: Decreased mineralization. No fracture or dislocation. No lytic or blastic lesion. Mild med ial joint space narrowing. Mild tricompartmental osteophytosis. Moderate quadriceps enthesopathy. No erosion or periosteal change. Soft tissues within normal limits. IMPRESSION: Osteopenia. Mild tricompartmental right knee osteoarthritis. Reviewed, dictated and finalized at location K.
== END 2024-01-10 16:23 ==
LOC: MICIMG 16:23
PROVIDERS: PCP Nurse Practitioner Family; Visit Provider Nurse Practitioner Family
DX: M85.88 Other specified disorders of bone density and structure, other site (principal); M17.0 Bilateral primary osteoarthritis of knee; M85.862 Other specified disorders of bone density and structure, left lower leg; M85.861 Other specified disorders of bone density and structure, right lower leg; M51.36 Other intervertebral disc degeneration, lumbar region
CPT/HCPCS: 72110; 73521; 73562

== ENCOUNTER 2024-04-03 12:27 | Outpatient (CLI) | payer MEDICARE, SELFPAY ==
--- NOTE | ~2024-04-03 | US_ITS ---
EXAMINATION: US carotid duplex BI DATE: 04/03/2024 13:17 INDICATION: Dizziness and giddiness TECHNIQUE: Grayscale, color Doppler, and pulsed Doppler images of the cervical carotid arteries were obtained. The degree of vessel stenosis is placed in one of the following categories: normal, <50%, 5 0-69%, >=70% but less than near-occlusion, near-occlusion, or total occlusion. Note that percent sten osis relative to normal distal artery lumen diameter is indirectly measured from velocity measurement s as described by Cristo, et al. Radiology 2003; 229:340-346. Notes: Normal: Peak systolic velocity <125 centimeters/sec and no plaque <50%. Peak systolic velocity <125 ( EDV <40; ICA/CCA PSV ratio <2.0; used these factors only a tandem lesions or low cardiac output or co ntralateral disease) 50-69 %: PSV 125-230 (EDV 40-100; ratio 2-4) >= 70% but less than near occlusion: PSV greater than 230 (EDV > 100; ratio> 4.0) Near Occlusion: PSV that is variable; markedly narrowed lumen Occlusion: Absent flow on color/spectral Doppler and no lumen on vang scale. COMPARISON: None. FINDINGS: RIGHT: The right common carotid artery (CCA) peak systolic velocity (PSV) is 94 cm/s. The right internal car otid artery (ICA) PSV is 96 cm/s. The right ICA end-diastolic velocity (EDV) is 26 cm/s. The right IC A/CCA PSV ratio is 1.0. The external carotid artery (ECA) PSV is 111 cm/s. There is antegrade flow in the right vertebral artery. LEFT: The left CCA PSV is 74 cm/s. The left ICA PSV is 118 cm/s. The left ICA EDV is 28 cm/s. The left ICA/ CCA PSV ratio is 1.6. The ECA PSV is 140 cm/s. There is antegrade flow in the left vertebral artery. IMPRESSION: 1. Less than 50% stenosis in the right internal carotid artery by sonographic criteria. 2. Less than 50% stenosis in the left internal carotid artery by sonographic criteria. Reviewed, dictated and finalized at location B. IMPRESSION: 1. Less than 50% stenosis in the right internal carotid artery by sonographic c bonnie. 2. Less than 50% stenosis in the left internal carotid artery by sonographic cr freddie.
== END 2024-04-03 12:28 | disposition home or self-care (01) ==
LOC: ANHIMG 12:27
PROVIDERS: PCP Nurse Practitioner Family; Visit Provider Nurse Practitioner Family
DX: R42 Dizziness and giddiness (principal); I65.23 Occlusion and stenosis of bilateral carotid arteries
CPT/HCPCS: 93880

== ENCOUNTER 2024-05-04 06:51 | Outpatient (CLI) | payer MEDICARE, SELFPAY ==
--- NOTE | ~2024-05-04 | MR_ITS ---
EXAMINATION: MR brain/brain stem wo/w con DATE: 05/04/2024 07:33 INDICATION: Multiple sclerosis TECHNIQUE: Magnetic resonance imaging (MRI) of the brain and brainstem was performed without intraven ous contrast. Sequences included sagittal and axial T1-weighted SE, axial diffusion-weighted FS SE, a xial T2*-weighted GRE, axial 3D SWAN, axial T2-weighted FLAIR, and axial T2-weighted FSE. Postcontras t axial and coronal T1-weighted SE was obtained. Apparent diffusion coefficient (ADC) maps were creat ed. COMPARISON: 12/20/2022 FINDINGS: There are no areas of restricted diffusion to suggest acute infarction. No intracranial hemorrhage or abnormal intracranial mass lesion. No interval change in the few scattered areas of nonspecific incr eased T2-weighted signal intensity in the cerebral white matter, predominantly involving the deep and periventricular white matter which is within normal limits for age. There are no intraparenchymal si gnal abnormalities seen on the other pulse sequences. There are no areas of abnormal enhancement on t he postcontrast imaging. The ventricles are symmetric and normal in size. There are no abnormal extra -axial fluid collections. Flow voids are seen in the cerebral arteries on the T2-weighted sequences c onsistent with their expected patency. Visualized orbits and soft tissues are unremarkable. IMPRESSION: 1. Normal aging brain. Reviewed, dictated and finalized at location A. IMPRESSION: 1. Normal aging brain.
== END 2024-05-04 06:52 | disposition home or self-care (01) ==
PROVIDERS: PCP Family Medicine; Visit Provider Psychiatry & Neurology Neurology
DX: G35 Multiple sclerosis (principal); E56.9 Vitamin deficiency, unspecified; G31.84 Mild cognitive impairment of uncertain or unknown etiology; G62.89 Other specified polyneuropathies
CPT/HCPCS: 70553; A9577

== ENCOUNTER 2024-06-06 10:30 | Outpatient (CLI) | payer MEDICARE, SELFPAY | END 2024-06-06 10:31 | disposition home or self-care (01) | LOC: ANHAUDIO 10:33 | PROVIDERS: PCP Family Medicine; Visit Provider Nurse Practitioner Family | DX: H69.90 Unspecified Eustachian tube disorder, unspecified ear (principal); H90.A21 Sensorineural hearing loss, unilateral, right ear, with restricted hearing on the contralateral side; H90.A32 Mixed conductive and sensorineural hearing loss, unilateral, left ear with restricted hearing on the contralateral side | CPT/HCPCS: 92557; 92567 ==

== ENCOUNTER 2024-06-07 12:26 | Outpatient (CLI) | payer MEDICARE, SELFPAY ==
--- NOTE | ~2024-06-07 | CT_ITS ---
EXAMINATION: CT sinus wo con DATE: 06/07/2024 12:44 INDICATION: Chronic sinusitis. TECHNIQUE: Computed tomography (CT) of the paranasal sinuses was performed without intravenous contra st. The dose-length product (DLP) was 300.40 mGy-cm. Iterative reconstruction was used. COMPARISON: None FINDINGS: There is normal development and pneumatization of the paranasal sinuses. Mild mucosal thick ening in the bilateral ethmoid sinuses, with partial opacification in the left anterior ethmoid cells . The bilateral frontal, maxillary, and sphenoid sinuses are normal. Left mastoid fluid with fluid in the middle and inner ears spaces. The bilateral ostiomeatal complexes are patent. Visualized soft ti ssues are unremarkable. 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 Left mastoid and left middle/inner ear fluid, correlate for clinical findings of otomastoiditis. Reviewed, dictated and finalized at location K. 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 Left mastoid and left middle/inner ear fluid, correlate for clinical findings o f otomastoiditis.
== END 2024-06-07 12:27 | disposition home or self-care (01) ==
LOC: ANHIMG 12:31
PROVIDERS: PCP Family Medicine; Visit Provider Nurse Practitioner Family
DX: J32.2 Chronic ethmoidal sinusitis (principal); H74.92 Unspecified disorder of left middle ear and mastoid; J32.9 Chronic sinusitis, unspecified
CPT/HCPCS: 70486

== ENCOUNTER 2024-08-07 09:34 | Outpatient (CLI) | payer MEDICARE, SELFPAY ==
--- NOTE | 2024-08-29 11:29 | P.SLEEP_ITS ---
Sleep Study Date of Study: 08/07/24 Ordering Provider: Kari Birmingham MD Interpreting Physician: Kari Birmingham MD Sleep Study Type: CPAP Titration Height: 1.65 m Weight: 56.699 kg Body Mass Index: 20.7 Neck Circumference (inches): 13 [place]: 3 Reason for Sleep Study Known LUTHER, presents for CPAP titration Has been on auto PAP for years, now with disruptive non restorative sleep. * 02/27/2017 HST through [facility] - apnea-hypopnea index 32.5, average sle ep oxygen saturation 93%, minimum desaturation 82%. Sleep History Nasreen Garcia is 69-year-old woman with obstructive sleep apnea for over 12 years. She is currently on an auto PAP, her machine is about 1-year-old as it was replaced during the recall of [employer] PAP machines. Her sleep is not refreshing even after 7 or 8 hours in bed. She does not awaken from sleep feeling short of breath. She rarely awakens at night with coughing, but no actual heartburn. She occasionally snores loudly enough that others complain. She occasionally has difficulty sleeping when she has a cold. She does not wake up gasping for breath at night. She does not sweat excessively at night or notice her heart pounding or beating irregularly at night. She occasionally falls asleep during the day, occasionally falls asleep involuntarily. She does not fall asleep while driving. She does not have loss of muscle tone with strong emotion. She rarely has daytime difficulties due to excessive sleepiness. She does not feel paralyzed on falling asleep or upon awakening. She does not have vivid dreamlike scenes upon awakening or falling asleep. She does not feel afraid to go to sleep. She does not have nightmares. She does not remember her dreams. She does not have racing thoughts. She rarely feels sad or depressed. She occasionally has anxiety. She does not have muscular tension. She rarely notices parts of her body jerking at night which she thinks may wake her up. She is not sure if she kicks at night but she does have some discomfort in her toes which radiates up into her feet which she notices before falling asleep. She rarely has aching feelings in her legs which she attributes to the days that she exercises and lifts weights. She does not have leg pain at night. She does not have morning jaw pain nor does she grind her teeth at night. She is not bothered by pain during the day nor awakened by pain during the night. She rarely wakes up feeling stiff in the morning, rarely wakes up with sore achy muscles. She does not wake up with pain in the neck and spine. She has significant fatigue, occasional memory problems, occasional insomnia and has concentration difficulties while reading. Her normal bedtime is 10:30 p.m., and she is not sure how long it takes her to fall asleep. She typically does not awaken during the night. 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 Her wake time is 8:00 a.m.. On weekends, bedtime is 11:00 p.m. and wake time is 9:00 a.m.. She estimates getting between 7 and 8 hours of sleep at night. She sometimes takes naps in the afternoon or evening. She may feel refreshed after a 10-15 minute nap. She is drowsy upon awakening, and the drowsiness persists until after she has coffee in the morning. She also drinks a cup in the afternoon. She reports a 5 lb weight gain in the last year. Habits:??Tobacco:never Caffeine:2 cups per day Alcohol: one per week Recreational substances: none PMFSH Past Medical History Medical History Anemia Alzheimers disease Glaucoma suspect Daytime sleepiness Vitamin deficiency MCI (mild cognitive impairment) Small fiber polyneuropathy Petechiae Allergies Family history of colon cancer in mother Change in stool Elevated fasting glucose Screening cholesterol level Screening for diabetes mellitus IBS (irritable bowel syndrome) Diarrhea Finger dysfunction Anxiety disorder, unspecified Diarrhea Encounter for surgical aftercare following surgery on the digestive system Postoperative generalized abdominal pain Depression Cecal volvulus Obstructive sleep apnea Hypertension (Unknown) Atrial fibrillation Surgical History Surgical History S/P right colectomy 07/25/20 DELIA right colctomy for cecal volvulus H/O hysterectomy for benign disease Laparoscopic LOVE-BSO Family History Family History Mother Colon cancer Father Hypertension Acute myocardial infarction Cerebrovascular accident AAA (abdominal aortic aneurysm) Sibling Hypertension Social History Social History Social History: Ms. Garcia lives at home with her . She is independent in her ADLs. 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 She designates her , Roshan, as her surrogate decision maker. She would like to be a full code. Smoking status: Never smoker Second hand tobacco smoke exposure: No Alcohol intake: current Drinks per week: 2 Substance use: never Substance use type: does not use Do You Feel Safe in your Home?: Yes Lack of Transportation: No Lack of Food: Never True Current Housing: I Have Housing Concerned About Future Housing: No Difficulty Paying Gas/Electric Bills: No Difficulty Paying for Meds: No Currently Unemployed: No Education: Bachelor's Degree Difficulty w/ Childcare or Family Care: No Living arrangements: with family Additional living arrangements comments: Lives with , Billy. Occupation/Education: retired Additional occupation/education comments: [employer] Gender identity (if verbalized by the patient): Female Sexual Orientation (if Verbalized by the Patient): Straight or Heterosexual Spiritual care concerns: No Medications Home Medications ?Medication ?Instructions ?Recorded ?Confirmed ?Type finasteride 5 mg tablet 2.5 mg PO DAILY 07/24/20 06/26/24 History rivaroxaban 20 mg tablet (Xarelto) 20 mg PO HS 07/24/20 06/26/24 History spironolactone 25 mg tablet 25 mg PO DAILY 07/24/20 06/26/24 History cholecalciferol (vitamin D3) 50 50 mcg PO BID 12/22/22 06/26/24 History mcg (2,000 unit) capsule (Vitamin D3) flaxseed oil 1,000 mg capsule 1,000 mg PO DAILY 12/22/22 06/26/24 History snlrbspx-pmsntcw-qsxq-lutein tablet 1 tablet PO DAILY 12/22/22 06/26/24 History omega 6-ktr-msd-fish oil 1,200 mg 1 cap PO DAILY 12/22/22 06/26/24 History (144 mg-216 mg) capsule (Fish Oil) cranberry extract 500 mg capsule 500 mg PO BID 06/30/23 06/26/24 History (Cranberry Concentrate) progesterone 50 mg/mL 1 mg IM .qd 09/01/23 06/26/24 History intramuscular oil azelastine 137 mcg (0.1 %) nasal 137 mcg (0.137 mL) intranasal Q12H 04/30/24 06/26/24 Rx spray #30 mL bupropion HCl 300 mg 24 hr tablet, 300 mg PO QAM #30 tabs 06/11/24 06/26/24 Rx extended release escitalopram oxalate 20 mg tablet 20 mg PO HS #30 tabs 08/22/24 Rx Sleep Procedure A full night polysomnogram using the [email or web address] multi-channel system r ecorded the standard physiologic parameters including EEG, EOG, submentalis EMG, anterior tibialis EMG, EKG, body position, nasal and oral airflow using PAP device flow signal. Respiratory parameters of chest and abdominal movements were recorded with Respiratory Inductance Plethysmography belts. Oxygen saturation was recorded by pulse oximetry. Video monitoring was also performed. Sleep stages, periodic limb movements, and EEG arousals were scored in 30 second epochs according to the criteria of the AASM Scoring Manual. The Apnea-Hypopnea Index was calculated using CMS guidelines for definition of hypopnea with 4% O2 desaturations while scoring respiratory events. She wore a medium ResMed AirFit N20 nasal mask as she does at home. She wanted to use paper tape on her mouth as she does at home. The mechanical laboratory technician told her that she could use a chin strap, patient declined. CPAP was started at 5 cm and remained at that setting during the entire study. She had 2 dense episodes of REM however sleep was really fragmented a during the night. Her overall sleep efficiency was normal 80%. She reported that she felt in the morning that this was a good night of sleep, more refreshed than usual. Sleep Architecture The total recording time was 455.1 minutes. The total sleep time was 365.5 minutes. Sleep latency was 5.9 minutes. REM latency was 140.5 minutes. Sleep efficiency was 80.3%. The patient had 34 awakenings for an awakening index of 5.6. Wake after Sleep Onset time was 83.5 minutes. The patient spent 23.5 minutes, 6.9% of total sleep time in Stage N1. The patient spent 255.0 minutes, 74.3% in Stage N2. The patient spent 16.5 minutes, 4.8% in Stage N3. The patient spent 48.0 minutes, 14.0% in Stage REM. Respiratory Analysis The patient had 1 hypopneas, no obstructive apneas, no mixed apneas, and no central apneas for an overall Apnea Hypopnea Index of 0.2 events per hour. The REM Apnea Hypopnea Index was 0. The NREM Apnea Hypopnea Index was 0.2. The patient had a Central Apnea Hypopnea Index of 0. There were no Respiratory Effort Related Arousals. The Respiratory Disturbance Index is 0.2 events per hour. There was no evidence of Julio-Skaggs Respirations. Arousals There were 138 total arousals for an arousal index of 24.1. There were 60 spontaneous arousals for an index of 10.5. There were 6 arousals due to respiratory events for an index of 1.0. There were 58 arousals due to periodic limb movements for an index of 10.1. There were 15 arousals due to isolated limb movements for an index of 2.6. Periodic Limb Movements The patient had 49 isolated limb movements with an index of 8.6. The patient had 265 periodic limb movements with index of 46.4. Patient had a total of 314 limb movements with a total limb movement index of 54.9. Oximetry Data The patient had an average oxygen saturation of 94.1% in sleep with a minimum oxygen saturation of 92% and a maximum oxygen saturation of 98%. The patient had 2 oxygen desaturations that were 4% or greater resulting in an Oxygen Desaturation Index of 0.3. The patient spent no time with an oxygen saturation below 88%. Snoring Profile During titration, snoring was not present. Cardiac Profile The EKG showed normal sinus rhythm. The patient had an average pulse rate of 51.8 bpm with a minimum pulse rate of 47 bpm and a maximum pulse rate of 60 bpm. [facility] has scattered PVCs. The tech was concerned about possible atrial flutter, there was none on my review epoch by epoch. She does have a history of recent atrial fibrillation. EEG Profile EEG was unremarkable, no evidence of seizures. Assessment and Plan Assessment and Plan (1) Obstructive sleep apnea: Code(s): G47.33 - Obstructive sleep apnea (adult) (pediatric) Status: Chronic Assessment and Plan: This full night CPAP titration on 08/07/2024 shows that the patient was on 5 cm for the entire night. She did not have any adjustments in her pressure. Her quality of sleep during the titration was better than normal. She did use tape on her lips to keep her mouth shut as she was using a nasal mask, does not plan to use a fullface mask. On her current APAP 5-15 cm with 1 cm EPR she is compliant with a low apnea-hypopnea index but has a substantial air leak. I recommend CPAP 6 cm using a medium ResMed AirFit N20 nasal mask which is what she currently uses. Her current APAP may be used, and her EPAP and IPAP can both be set at 6 cm water pressure. This should be used with all episodes of sleep. Compliance should be reviewed within 31-90 days of starting therapy for usage greater than 4 hours per night greater than 70% of the nights. The patient should be asked about symptoms such as excessive daytime sleepiness, quality of sleep, decreased nocturia, increased mental functioning such as memory, mood, and concentration. (2) Restless leg syndrome: Code(s): G25.81 - Restless legs syndrome Status: Acute Assessment and Plan: She had excessive limb movements with a periodic limb movement index of 46.4, mostly in the first half of the night, without increased arousals. This contributed to fragmented sleep. Her PLM arousal index was 9.4, in the normal range, < 15/hour. She does not meet criteria for periodic limb movement disorder however with discomfort in her feet and toes this is consistent with restless legs syndrome. Ferritin level is indicated to exclude iron deficiency anemia as a contributing factor. Ferritin should be 75 ng/mL or greater. If ferritin is below this, iron supplementation should be given to achieve ferritin of 75 ng/mL. There are nonpharmacologic methods to treat limb movements including daily exercise, stretching calf muscles before bed, avoiding excessive amounts of caffeine and alcohol, vitamin B supplementation, magnesium lotion massaged into legs before bed, and use of a weighted blanket. Pharmacologic therapy is very effective for restless legs syndrome and limb movements during sleep and may include [id number]-[id number] voltage-gated calcium channel ligands such as gabapentin which is preferable to dopaminergic agents which can have augmentation. Other treatments can include opioids and benzodiazepines. Data The data obtained during this sleep study is adequate for interpretation. Certification This sleep study has been reviewed by a board certified sleep medicine physician.
[2024-08-30 11:26] VITALS: BMI 20.7
== END 2024-08-08 06:55 | disposition home or self-care (01) ==
LOC: ANHCSM 09:37
PROVIDERS: PCP Family Medicine; Visit Provider Internal Medicine Critical Care Medicine
DX: G47.33 Obstructive sleep apnea (adult) (pediatric) (principal); G25.81 Restless legs syndrome
CPT/HCPCS: 95811

== ENCOUNTER 2024-09-18 10:20 | Outpatient (CLI) | payer MEDICARE, SELFPAY | END 2024-09-18 10:21 | disposition home or self-care (01) | LOC: ANHAUDIO 10:20 | PROVIDERS: PCP Family Medicine; Visit Provider Family Medicine | DX: Z01.10 Encounter for examination of ears and hearing without abnormal findings (principal); Z96.22 Myringotomy tube(s) status; H93.8X1 Other specified disorders of right ear; H69.92 Unspecified Eustachian tube disorder, left ear | CPT/HCPCS: 92557; 92567 ==

== ENCOUNTER 2024-10-04 17:50 | Emergency (ER) | payer MEDICARE, SELFPAY ==
--- NOTE | ~2024-10-04 | XR_ITS ---
CHEST RADIOGRAPH, PA AND LATERAL CLINICAL HISTORY: CP . COMPARISON: None available TECHNIQUE: PA and lateral views of the chest. FINDINGS The cardiomediastinal silhouette is unremarkable. The lungs are clear. Visualized osseous structures and soft tissues are unremarkable. IMPRESSION: No focal infiltrate or effusion. Reviewed, dictated and finalized at location A. ROOM CULTIVATOR
--- NOTE | 2024-10-04 17:51 | ECG_ITS ---
Test Date: 2024-10-04 17:55:57 Measurements Intervals Bath Rate: 58 P: 66 CT: 141 QRS: 72 QRSD: 85 T: 67 QT: 409 QTc: 402 Interpretive Statements SINUS BRADYCARDIA MINIMAL VOLTAGE CRITERIA FOR LVH, CONSIDER NORMAL VARIANT [MEETS CRITERIA IN ONE OF: R(aVL), S(V1), R(V5), R(V5/V6)+S(V1)] No previous ECG available for comparison Electronically Signed On 10-05-2024 11:52:23 WATER ATTENDANT by Tracey Carver
[2024-10-04 17:58] VITALS: BP 169/83; PULSE 58; RESP 20; TEMP 36.6; O2SAT 100
[2024-10-04 18:10] LABS: Glucose Point of Care 79 mg/dl (65-105)
[2024-10-04 18:11] LABS: Basophils Percent Auto 0.4 % (0.2-1.2); Eosinophils Percent Auto 0.1 % (0-4.4); Hemoglobin 17.1 g/dL (12.0-15.0); Immature Granulocyte Absolute 0.01 K/mm3 (0.00-0.031); Immature Granulocyte Percent A 0.1 % (0-0.5); Lymphocytes Absolute Auto 2.12 K/mm3 (0.9-3.2); Lymphocytes Percent Auto 23.5 % (18.3-44.2); Mean Corpuscular HGB Conc 34.2 g/dl (32-36); Mean Corpuscular Hemoglobin 33.9 pg (26-34); Mean Platelet Volume 8.9 fl (7.4-10.4); Monocytes Absolute Auto 0.8 K/mm3 (0.1-0.6); Monocytes Percent Auto 9.2 % (2.6-8.5); Neutrophils Percent Auto 66.7 % (45.5-73.1); Platelet Count Result 273 k/mm3 (150-375); Red Blood Count 5.05 M/mm3 (4.2-5.4)
[2024-10-04 18:22] LABS: Alanine Aminotransferase 32 U/L (6-35); Albumin Level 4.6 g/dL (3.5-5.1); Alkaline Phosphatase 116 U/L (38-126); Anion Gap 13 mmol/L (4-12); Aspartate Amino Transferase 41 U/L (14-36); Bilirubin,Total 0.7 mg/dL (0.2-1.3); Blood Urea Nitrogen 18 mg/dL (7-17); Calcium 10.1 mg/dL (8.4-10.2); Carbon Dioxide 26 mmol/L (22-30); Chloride 98 mmol/L (98-107); Estimated CRCL calculation 43 ml/min; Estimated Glomerular Filt Rate 60; Glucose 99 mg/dL (65-110); INR 1.1; Lipase 298 U/L (23-300); Prothrombin Time 14.8 Seconds (11.1-14.7); Sodium 137 mmol/L (137-145)
--- NOTE | 2024-10-04 18:23 | ED_ITS ---
HPI - Chest Pain General Chief Complaint: Chest Pain Stated Complaint: CP Time Seen by Provider: 10/04/24 18:00 Focused HPI: Patient is a 69-year-old female who presents to the ER with chest pain that started approximately 15 minutes prior to arrival. She endorses significant right shoulder, arm, neck and back pain. Patient rates the back pain at a 9/10. She has a history of AFib and used to be on 3 blood pressure medications but has recently been decreased down to just spironolactone. Patient denies any nausea but endorses chills. She reports she is a healthy woman who exercises and she is ever experience discomfort like this before. GENERAL: Well-appearing, well-nourished, and in no acute distress. HEAD: Normocephalic, atraumatic. CHEST: Clear to auscultation. ?No respiratory distress. HEART: Bradycardia, regular rhythm. ? NEURO: ?Alert and oriented x3. Patient screened in triage and initial orders placed.? ?Additional care and disposition to be based upon?diagnostic testing and treatment. Related Data Home Medications ?Medication ?Instructions ?Recorded ?Confirmed ?Last Taken ?Type finasteride 5 mg tablet 2.5 mg PO DAILY 07/24/20 09/21/24 07/23/20 History rivaroxaban 20 mg tablet (Xarelto) 20 mg PO HS 07/24/20 09/21/24 12/24/22 08:00 History spironolactone 25 mg tablet 25 mg PO DAILY 07/24/20 09/21/24 07/23/20 History cholecalciferol (vitamin D3) 50 50 mcg PO BID 12/22/22 09/21/24 Unknown History mcg (2,000 unit) capsule (Vitamin D3) flaxseed oil 1,000 mg capsule 1,000 mg PO DAILY 12/22/22 09/21/24 Unknown History ossvydcy-kasopwo-dujt-lutein tablet 1 tablet PO DAILY 12/22/22 09/21/24 Unknown History omega 4-gvs-fzq-fish oil 1,200 mg 1 cap PO DAILY 12/22/22 09/21/24 Unknown History (144 mg-216 mg) capsule (Fish Oil) cranberry extract 500 mg capsule 500 mg PO BID 06/30/23 09/21/24 Unknown History (Cranberry Concentrate) progesterone 50 mg/mL 1 mg IM .qd 09/01/23 09/21/24 Unknown History intramuscular oil Allergies Allergy/AdvReac Type Severity Reaction Status Date / Time Penicillins Allergy Intermediate HIVES Verified 09/21/24 09:08 latex Allergy Mild RASH Verified 09/21/24 09:08 Review of Systems 2 Review of Systems: All systems reviewed & are unremarkable except as noted in HPI and below PMFSH Past Medical History Medical History Restless leg syndrome Anemia Alzheimers disease Glaucoma suspect Daytime sleepiness Vitamin deficiency MCI (mild cognitive impairment) Small fiber polyneuropathy Petechiae Allergies Family history of colon cancer in mother Change in stool Elevated fasting glucose Screening cholesterol level Screening for diabetes mellitus IBS (irritable bowel syndrome) Diarrhea Finger dysfunction Anxiety disorder, unspecified Diarrhea Encounter for surgical aftercare following surgery on the digestive system Postoperative generalized abdominal pain Depression Cecal volvulus Obstructive sleep apnea Hypertension (Unknown) Atrial fibrillation Surgical History Surgical History S/P right colectomy 07/25/20 DELIA right colctomy for cecal volvulus H/O hysterectomy for benign disease Laparoscopic LOVE-BSO Family History Family History Mother Colon cancer Father Hypertension Acute myocardial infarction Cerebrovascular accident AAA (abdominal aortic aneurysm) Sibling Hypertension Social History Social History Social History: Ms. Garcia lives at home with her . She is independent in her ADLs. 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 She designates her , Roshan, as her surrogate decision maker. She would like to be a full code. Smoking status: Never smoker Second hand tobacco smoke exposure: No Alcohol intake: current Drinks per week: 2 Substance use: never Substance use type: does not use Do You Feel Safe in your Home?: Yes Lack of Transportation: No Lack of Food: Never True Current Housing: I Have Housing Concerned About Future Housing: No Difficulty Paying Gas/Electric Bills: No Difficulty Paying for Meds: No Currently Unemployed: No Education: Bachelor's Degree Difficulty w/ Childcare or Family Care: No Living arrangements: with family Additional living arrangements comments: Lives with , Billy. Occupation/Education: retired Additional occupation/education comments: Teacher[employer] Gender identity (if verbalized by the patient): Female Sexual Orientation (if Verbalized by the Patient): Straight or Heterosexual Spiritual care concerns: No Course Vital Signs Vital signs: Vital Signs Temperature 36.6 C 10/04/24 17:58 Pulse Rate 58 L 10/04/24 17:58 Respiratory Rate 20 10/04/24 17:58 Blood Pressure 169/83 H 10/04/24 17:58 Pulse Oximetry 100 10/04/24 17:58 Oxygen Delivery Room Air 10/04/24 17:58 Temperature 36.6 C 10/04/24 17:58 Pulse Rate 58 L 10/04/24 17:58 Respiratory Rate 20 10/04/24 17:58 Blood Pressure 169/83 H 10/04/24 17:58 Pulse Oximetry 100 10/04/24 17:58 Oxygen Delivery Room Air 10/04/24 17:58 MDM - Chest Pain Lab Data 10/04/24 18:05 10/04/24 18:05 Labs: Lab Results 10/04/24 10/04/24 Range/Units 18:01 18:05 WBC 9.0 (4.5-10.0) K/mm3 RBC 5.05 (4.2-5.4) M/mm3 Hgb 17.1 H D (12.0-15.0) g/dL Hct 50.0 H (37.0-47.0) % MCV 99.0 (80-100) fl MCH 33.9 (26-34) pg MCHC 34.2 (32-36) g/dl RDW 12.0 (11.5-14.5) % Plt Count 273 (150-375) k/mm3 MPV 8.9 (7.4-10.4) fl Immature Gran % (Auto) 0.1 (0-0.5) % Neut % (Auto) 66.7 (45.5-73.1) % Lymph % (Auto) 23.5 (18.3-44.2) % [place] % (Auto) 9.2 H (2.6-8.5) % Eos % (Auto) 0.1 (0-4.4) % Baso % (Auto) 0.4 (0.2-1.2) % Lymph # (Auto) 2.12 (0.9-3.2) K/mm3 [place] # (Auto) 0.8 H (0.1-0.6) K/mm3 Eos # (Auto) 0.0 (0-0.3) K/mm3 Baso # (Auto) 0.0 (0.0-0.1) K/mm3 Abs Immat Gran (auto) 0.01 (0.00-0.031) K/mm3 Absolute Neuts (auto) 6.0 (1.3-6.7) K/mm3 Absolute Nucleated RBC 0.000 (0.0-0.012) K/mm3 Nucleated RBC % 0.0 (0.0-0.2) % PT 14.8 H (11.1-14.7) Seconds INR 1.1 APTT 34.5 (22.3-36.8) Seconds Sodium 137 (137-145) mmol/L Potassium 4.0 (3.4-5.0) mmol/L Chloride 98 (98-107) mmol/L Carbon Dioxide 26 (22-30) mmol/L Anion Gap 13 H (4-12) mmol/L BUN 18 H D (7-17) mg/dL Creatinine 0.92 (0.7-1.0) mg/dL Estim Creat Clear Calc 43 ml/min Estimated GFR 60 (59 - ) Glucose 99 (65-110) mg/dL POC Capillary Glucose 79 (65-105) mg/dl Calcium 10.1 (8.4-10.2) mg/dL Total Bilirubin 0.7 (0.2-1.3) mg/dL AST 41 H (14-36) U/L ALT 32 (6-35) U/L Alkaline Phosphatase 116 (38-126) U/L Troponin I < 0.012 (0.000-0.034) ng/mL Total Protein 9.0 H (6.3-8.2) g/dL Albumin 4.6 (3.5-5.1) g/dL Lipase 298 (23-300) U/L Discharge Plan Discharge Clinical Impression: Atypical chest pain Patient Disposition: Elopement After Seen by Prov Condition: Stable Patient Language: Bulgarian Prescriptions: No Action cranberry extract [Cranberry Concentrate] 500 mg capsule 500 mg PO BID Rx Instructions: administer with meals progesterone 50 mg/mL oil 1 mg IM .qd spironolactone 25 mg tablet 25 mg PO DAILY finasteride 5 mg tablet 2.5 mg PO DAILY Xarelto 20 mg tablet 20 mg PO HS flaxseed oil 1,000 mg Capsule 1,000 mg PO DAILY Centrum Silver Ultra Women's Tablet 1 tablet PO DAILY cholecalciferol (vitamin D3) [Vitamin D3] 50 mcg (2,000 unit) Capsule 50 mcg PO BID omega 9-ymd-lfg-fish oil [Fish Oil] 1,200 (144-216) mg Capsule 1 cap PO DAILY azelastine 137 mcg (0.1 %) spray,non-aerosol 137 mcg intranasal Q12H Qty: 30 0RF Rx Instructions: administer into each nostril escitalopram oxalate 20 mg tablet 20 mg PO HS Qty: 30 3RF bupropion HCl 300 mg tablet extended release 24 hr 300 mg PO QAM Qty: 30 3RF Follow-up/Referrals: Jose Guadalupe Holt MD [Primary Care Provider] - Time of Disposition: 16:42
[2024-10-04 18:24] LABS: Partial Thromboplastin Time 34.5 Seconds (22.3-36.8)
[2024-10-04 18:33] LABS: Troponin I < 0.012 ng/mL (0.000-0.034)
--- OUTSIDE RECORDS SUMMARY | 2024-10-05 06:12 | XMS_ITS ---
Author Organization [facility] Address [address] [place] [address] Care Team Providers Care Flush Tester Name Role Phone Yanet CASTREJON, Jose Guadalupe Primary Care Provider Unavaila Jina An Unavailable [phone] Joseph Rodriguez Unavailable [phone] REASON FOR VISIT SCIT - Traditional Schedule Allergy Immunotherapy (Week ) Medications Medication SIG (Take, Route, Frequency, Duration) Notes Start Date End Date Status EpiPen 2-Robert 0.3 MG/0.3ML as directed intramuscularly once for 30 days 09/21/2023 Active Flecainide Acetate 100 MG 1 tab(s) orally every 12 hours for 30 day(s) 06/15/2023 Active Spironolactone 25 MG 1 tab(s) orally onc e a day Active SIT (TRADITIONAL) VARIABLE PER SCHEDULE PER SCHEDULE for 1 DAYS *Please review for potential replacement for e-prescription and drug interaction check* 12/26/2023 Active SIT (CLUSTER) VARIABLE PER SCHEDULE SC PER SCHEDULE for 1 DAYS *Please review for potential replacement for e-prescription and drug interaction check* 10/31/2023 Active Allergy Relief 10 MG 1 tab(s) orally onc e a day Active NASAL WASHES N/A DIRECTED INTRANASALLY NEEDED for 30 DAYS *Please review for potential replacement for e-prescription and drug interaction check* Active Metoprolol Tartrate 25 MG 1 tab(s) orally once a day Active Lisinopril 5 MG 1.5 tab(s) orally once a day 7mg Active EpiPen 2-Robert 0.3 MG/0.3ML as directed intramuscularly once for 30 days Active Cetirizine HCl 10 MG 1 tab(s) orally onc e a day for 30 days Active Encounters Encounter Location Date Provider Diagnosis [facility] - [address] [facility] [address] [place] [address] 09/18/2024 Joseph Rodriguez Allergic rhinitis du e to pollen J30.1 ; Other allergic rhinitis J30.89 ; Allergic rhinitis due to animal (cat) (dog) hair and dander J30.81 and Other chronic allergic conjunctivitis H10.45 Assessments Encounter Date Diagnosis (ICD Code) Assessment Notes Treatment Notes Treatment Clinical Notes Section Notes 09/18/2024 Allergic rhinitis due to pollen (ICD-10 - J30.1) 09/18/2024 Other allergic rhinitis (ICD-10 - J30.89) 09/18/2024 Allergic rhinitis due to animal (cat) (dog) hair and dander (ICD-10 - J30.81) 09/18/2024 Other chronic allergic conjunctivitis (ICD-10 - H10.45) Plan Of Treatment Next Appt Details Follow Up: As scheduled, Karen son: Provider Name:Joseph Rodriguez , 10/16/2024 09:30:00 AM, [address], [address] [place] [address], [phone], Provider Name:Joseph Rodriguez , 11/15/2024 09:30:00 AM, [address], [address] [place] [address], [phone], Progress Notes * Nasreen GARCIADOB:1955 (69 yo F)Acc No.[id number]:09/18/2024 SCIT-Aeroallergen Patient:?Nasreen GARCIA Provider:?Joseph Rodriguez MD :1955???Age:69 Y???Sex:Female D ate:09/18/2024 Address:[address] [place] [address] [facility] Pcp:Jose Guadalupe Holt MD Subjective: * Chief Complaints: * ???SCIT - Traditional [place] Allergy Immunotherapy (Week ) * HPI: ???*Introduction:? The patient is here for scheduled immunotherapy. Please see the attached specialty form regarding the specifics of the administration of these vaccines. As per our protocol, they must undergo a screening health questionnaire (medication changes, reaction(s) to last immunotherapy dose(s), current health status, ACT (if appropriate), self-injectable epinephrine on patient(?) and peak flow (if appropriate)). Also, the patient must wait in our office for 30 minutes after receiving the vaccine(s). Furthermore, every patient must have an epinephrine pen (self-injectable) with them at the time of administration--and carry if for the following 1.5 hours after they leave our office. The patient must also have taken their antihistamine the day of the injection, preferably 2 hours prior. The consent form for SCIT (subcutaneous immunotherapy) is on file. * Medical History:? * Surgical History:? * Hospitalization/Major Diagno stic Procedure:? * Medications:?TakingCetirizin e HCl 10 MG Tablet 1 tab(s) orally once a day EpiPen 2-Robert 0.3 MG/0.3ML Solution Auto-injector as directed intramuscularly once Lisinopril 5 MG Tablet 1.5 tab(s) orally once a day , Notes to Pharmacist: 7mgMetoprolol Tartrate 25 MG Tablet 1 tab(s) orally once a day NASAL WASHES N/A 1 QUART OF STERILIZED TAP WATER OR DISTILLED WATER, 1 TSP NACL, 1 PINCH OF BAKING SODA DIRECTED INTRANASALLY NEEDED , Notes to Pharmacist: *Please review for potential replacement for e-prescription and drug interaction check*Allergy Relief 10 MG Tablet 1 tab(s) orally once a day Spironolactone 25 MG Tablet 1 tab(s) orally once a day Flecainide Acetate 100 MG Tablet 1 tab(s) orally every 12 hours EpiPen 2-Robert 0.3 MG/0.3ML Solution Auto-injector as directed intramuscularly once SIT (CLUSTER) VARIABLE SEE RECORD PER SCHEDULE SC PER SCHEDULE , Notes to Pharmacist: *Please review for potential replacement for e-prescription and drug interaction check*SIT (TRADITIONAL) VARIABLE SEE RECORD PER SCHEDULE PER SCHEDULE , Notes to Pharmacist: *Please review for potential replacement for e-prescription and drug interaction check*Taking Cetirizine HCl 10 MG Tablet 1 tab(s) orally once a day Taking EpiPen 2-Robert 0.3 MG/0.3ML Solution Auto-injector as directed intramuscularly once Taking Lisinopril 5 MG Tablet 1.5 tab(s) orally once a day , Notes to Pharmacist: 7mgTaking Metoprolol Tartrate 25 MG Tablet 1 tab(s) orally once a day Taking NASAL WASHES N/A 1 QUART OF STERILIZED TAP WATER OR DISTILLED WATER, 1 TSP NACL, 1 PINCH OF BAKING SODA DIRECTED INTRANASALLY NEEDED , Notes to Pharmacist: *Please review for potential replacement for e-prescription and drug interaction check*Taking Allergy Relief 10 MG Tablet 1 tab(s) orally once a day Taking Spironolactone 25 MG Tablet 1 tab(s) orally once a day Taking Flecainide Acetate 100 MG Tablet 1 tab(s) orally every 12 hours Taking EpiPen 2-Robert 0.3 MG/0.3ML Solution Auto-injector as directed intramuscularly once Taking SIT (CLUSTER) VARIABLE SEE RECORD PER SCHEDULE SC PER SCHEDULE , Notes to Pharmacist: *Please review for potential replacement for e-prescription and drug interaction check*Taking SIT (TRADITIONAL) VARIABLE SEE RECORD PER SCHEDULE PER SCHEDULE , Notes to Pharmacist: *Please review for potential replacement for e-prescription and drug interaction check* Objective: * Vitals:? Assessment: * Assessment: 1.?Allergic rhinitis due to pollen - J30.1 (Primary)???2.?Other allergic rhinitis - J30.89???3.?Allergic rhinitis due to animal (cat) (dog) hair and dander - J30.81???4.?Other chronic allergic conjunctivitis - H10.45??? Plan: * Treatment: * Procedure Codes:?14300 IMMUN OTHERAPY INJECTIONS * Preventive Medicine:? ??Counseling:?Exercise?Avoid heavy lifting on days of allergy immunotherapy.?Medication instruction:?Injectable epinephrine education and instruction w/ discussion of signs and symptoms of anaphylaxis and reasons to seek urgent or emergent care, Watch for side effects of prescribed medications.?Education:?Able to return demonstration of self-injectable epinephrine.? * Follow Up:?As scheduled * Billing Information: * Visit Code:? * Procedure Codes:? 94881 IMMUNOTHERAPY INJECTIONS. * CORRECTIONS Sign off status: Completed true * Provider:?Joseph Rodriguez MD Date:?09/18 Generated for Tamiko myers/Kwesi/Jesus on:?10/05/2024 06:12 AM RN CORRECTIONS History and Physical Notes * HPI (History of Present Illness) Category Sub-Category Detail Notes Category Not es *Introduction The patient is here for scheduled immunotherapy. Please see the attached specialty form regarding the specifics of the administration of these vaccines. As per our protocol, they must undergo a screening health questionnaire (medication changes, reaction(s) to last immunotherapy dose(s), current health status, ACT (if appropriate), self-injectable epinephrine on patient(?) and peak flow (if appropriate)). Also, the patient must wait in our office for 30 minutes after receiving the vaccine(s). Furthermore, every patient must have an epinephrine pen (self-injectable) with them at the time of administration--and carry if for the following 1.5 hours after they leave our office. The patient must also have taken their antihistamine the day of the injection, preferably 2 hours prior. The consent form for SCIT (subcutaneous immunotherapy) is on file.
--- OUTSIDE RECORDS SUMMARY | 2024-10-05 06:12 | XMS_ITS | Clinical Summary ---
Author Organization [facility] Address [address] [place] [address] Care Team Providers Care Manager Pharmaceutical Name Role Phone Jose Guadalupe Holt MD Primary Care Provider [phone] Source Comments [facility],non-owned Affiliates and Associated Physician Practices is amultiple site organization consisting of ambulatory clinics and hospital sitesin [place], [place], [place] and [place]. This disclosure is being madepursuant to the Care Everywhere program and may not contain all information available regarding this patient. Last updated 18.[facility] [employer] Social History Tobacco Use Types Packs/Day Years Used Date Smoking Tobacco: Never Assessed Sex and Gender Information Value Date Recorded Sex Assigned at Not on file Gender Identity Not on file Sexual Orientation Not on file Plan of Treatment Health Maintenance Due Date Last Done Comments BONE DENSITY TESTING 1955 COLOGUARD (AGES 45-75) - COL ON CA SCREENING 1955 COLON MONITORING 1955 COLONOSCOPY - COLON CA SCREENING 1955 CT COLONOGRAPHY - COLON CA SCREENING 1955 Colorectal Cancer Screening 1955 FIT - COLON CA SCREENING 1955 FLEX SIG - COLON CA SCREENING 1955 LIPID TESTING 1955 MAMMOGRAM 1955 HEPATITIS C SCREENING 03/20/1971 DTAP/TDAP/TD VACCINES (1 - Tdap) 1972 PNEUMOCOCCAL VACCINE 50+ (1 of 1 - PCV) 2003 ZOSTER VACCINE (1 of 2) 2003 COVID-19 VACCINE ( - 2023-2 5 season) 2024 INFLUENZA VACCINE (#1) 2024 DEPRESSION SCREENING 09/12/2024 MEDICARE AWV ? CALENDAR YEAR 2024 Respiratory Syncytial Virus (RSV) Vaccine Pt: or over 60 yrs (1 - 1-dose 75+ series) 2028 HEPATITIS B VACCINE Aged Out No longe r eligible based on patient's age to complete this topic HIB VACCINE Aged Out No longer eligi ble based on patient's age to complete this topic HPV VACCINE Aged Out No longer eligi ble based on patient's age to complete this topic MENINGOCOCCAL (Group B) VACCINE Aged Out No longer eligible based on patient's age to complete this topic MENINGOCOCCAL VACCINE Aged Out No venu bianca eligible based on patient's age to complete this topic Care Teams Manager Pharmaceutical Relationship Specialty Start Date End Date Jose Guadalupe Holt MD [address] [place] [phone] PCP - General Family Medicine 04/27/24
--- OUTSIDE RECORDS SUMMARY | 2024-10-05 06:12 | XMS_ITS | Patient Health Summary ---
Author Organization [facility] Address [address] [facility] [place] [address] Care Team Providers Care Cart Attendant Name Role Phone Jose Guadalupe Holt MD Primary Care Provider [phone] Note from [facility],non-owned Affiliates and Associated Physician Practices is amultiple site organization consisting of ambulatory clinics and hospital sitesin [place], [place], [place] and [place]. This disclosure is being madepursuant to the Care Everywhere program and may not contain all information available regarding this patient. Last updated 18.[facility] Social History Tobacco Use Types Packs/Day Years Used Date Smoking Tobacco: Never Assessed Sex and Gender Information Value Date Recorded Sex Assigned at Not on file Gender Identity Not on file Sexual Orientation Not on file Care Teams Cart Attendant Relationship Specialty Start Date End Date Jose Guadalupe Holt MD [address] [place] [id number] PCP - General Family Medicine 04/27/24
--- OUTSIDE RECORDS SUMMARY | 2024-10-05 06:12 | XMS_ITS ---
Author Organization [facility] Address [address] [place] [address] Care Team Providers Care Neurobiologist Name Role Phone Yanet CASTREJON, Jose Guadalupe Primary Care Provider UnavailJina Dickson Unavailable [phone] Leta Sanchez Unavailable [phone] REASON FOR VISIT SCIT (Aeroallergen) Encounters Encounter Location Date Provider Diagnosis [facility] [address] [place] [address] 07/17/2024 Leta Sanchez Plan Of Treatment Next Appt Details Provider Name:Joseph Rodriguez , 10/16/2024 09:30:00 AM, [address], [address], [place], [address], Provider Name:Joseph Rodriguez , 11/15/2024 09:30:00 AM, [address], [address], [place], [address], Progress Notes * Nasreen GARCIADOB:1955 (69 yo F)Acc No.[id number]:07/17/2024 SCIT-Aeroallergen Patient:?Nasreen GARCIA Provider:?Leta Sanchez MD :1955???Age:69 Y???Sex:Female D ate:07/17/2024 Address:[facility] [address], [facility] Pcp:Jose Guadalupe Holt MD Subjective: * Chief Complaints: * ???1. SCIT (Aeroallergen). * Medical History:? Objective: * Vitals:? Assessment: Plan: * Treatment: * Billing Information: * Visit Code:? * Procedure Codes:? * Electronic signature of Jennifer Sanchez MD on 10/05/2024 at 06:12 AM [employer] [employer] [facility] Sign off status: Pending * Provider:?Leta Sanchez MD Date:?01/2024 Generated for Tamiko myers/Kwesi/eTshantelsmitting on:?10/05/2024 06:12 AM [employer] [facility]
--- OUTSIDE RECORDS SUMMARY | 2024-10-05 06:12 | XMS_ITS ---
Author Organization [facility] Address [address] [place] [address] Care Team Providers Care Coil Winding Machines Set Up Mechanic Name Role Phone Yanet CASTREJON, Jose Guadalupe Primary Care Provider Unavaila Jina An Unavailable [phone] Joseph Rodriguez Unavailable [phone] REASON FOR VISIT SCIT - Traditional Schedule Allergy Immunotherapy (Week ) Medications Medication SIG (Take, Route, Frequency, Duration) Notes Start Date End Date Status Spironolactone 25 MG 1 tab(s) orally onc e a day Active Flecainide Acetate 100 MG 1 tab(s) orally every 12 hours for 30 day(s) 06/15/2023 Active SIT (TRADITIONAL) VARIABLE PER SCHEDULE PER SCHEDULE for 1 DAYS *Please review for potential replacement for e-prescription and drug interaction check* 12/26/2023 Active EpiPen 2-Robert 0.3 MG/0.3ML as directed intramuscularly once for 30 days 09/21/2023 Active SIT (CLUSTER) VARIABLE PER SCHEDULE SC PER SCHEDULE for 1 DAYS *Please review for potential replacement for e-prescription and drug interaction check* 10/31/2023 Active NASAL WASHES N/A DIRECTED INTRANASALLY NEEDED for 30 DAYS *Please review for potential replacement for e-prescription and drug interaction check* Active Allergy Relief 10 MG 1 tab(s) orally onc e a day Active Lisinopril 5 MG 1.5 tab(s) orally once a day 7mg Active Metoprolol Tartrate 25 MG 1 tab(s) orally once a day Active EpiPen 2-Robert 0.3 MG/0.3ML as directed intramuscularly once for 30 days Active Cetirizine HCl 10 MG 1 tab(s) orally onc e a day for 30 days Active Encounters Encounter Location Date Provider Diagnosis [facility] - [address] [facility] [address] [place] [address] 08/14/2024 Joseph Rodriguez Allergic rhinitis du e to pollen J30.1 ; Other allergic rhinitis J30.89 ; Allergic rhinitis due to animal (cat) (dog) hair and dander J30.81 and Other chronic allergic conjunctivitis H10.45 Assessments Encounter Date Diagnosis (ICD Code) Assessment Notes Treatment Notes Treatment Clinical Notes Section Notes 08/14/2024 Allergic rhinitis due to pollen (ICD-10 - J30.1) 08/14/2024 Other allergic rhinitis (ICD-10 - J30.89) 08/14/2024 Allergic rhinitis due to animal (cat) (dog) hair and dander (ICD-10 - J30.81) 08/14/2024 Other chronic allergic conjunctivitis (ICD-10 - H10.45) Plan Of Treatment Next Appt Details Follow Up: As scheduled, Karen son: Provider Name:Joseph Rodriguez , 10/16/2024 09:30:00 AM, [address], [address] [place] [address], [address], Provider Name:Joseph Rodriguez , 11/15/2024 09:30:00 AM, [address], [address] [place] [address], [phone], Progress Notes * Nasreen GARCIADOB:1955 (69 yo F)Acc No.[id number]:08/14/2024 SCIT-Aeroallergen Patient:?Nasreen GARCIA Provider:?Joseph Rodriguez MD :1955???Age:69 Y???Sex:Female D ate:08/14/2024 Address:[address] [place] [address] [facility] Pcp:Jose Guadalupe Holt MD Subjective: * [...] - H10.45??? Plan: * Treatment: * Procedure Codes:?27925 IMMUN OTHERAPY INJECTIONS * Preventive Medicine:? ??Counseling:?Exercise?Avoid heavy lifting on days of allergy immunotherapy.?Medication instruction:?Injectable epinephrine education and instruction w/ discussion of signs and symptoms of anaphylaxis and reasons to seek urgent or emergent care, Watch for side effects of prescribed medications.?Education:?Able to return demonstration of self-injectable epinephrine.? * Follow Up:?As scheduled * Billing Information: * Visit Code:? * Procedure Codes:? 86172 IMMUNOTHERAPY INJECTIONS. * ICE CLASSIFICATION CLERK Sign off status: Completed true * Provider:?Joseph Rodriguez MD Date:?08/14 Generated for Tamiko myers/Kwesi/Jesus on:?10/05/2024 06:12 AM INVOICE CLASSIFICATION CLERK History and Physical Notes * HPI (History [...]
--- OUTSIDE RECORDS SUMMARY | 2024-10-05 06:12 | XMS_ITS | Referral Summary ---
Author Organization [facility] Address [address] [place] [address] Care Team Providers Care Landscape Maintenance Internship Name Role Phone Jose Guadalupe Holt MD Primary Care Provider [phone] Source Comments [facility],non-owned Affiliates and Associated Physician Practices is amultiple site organization consisting of ambulatory clinics and hospital sitesin [place], [place], [place] and [place]. This disclosure is being madepursuant to the Care Everywhere program and may not contain all information available regarding this patient. Last updated 18.[facility] Social History Tobacco Use Types Packs/Day Years Used Date Smoking Tobacco: Never Assessed Sex and Gender Information Value Date Recorded Sex Assigned at Not on file Gender Identity Not on file Sexual Orientation Not on file Plan of Treatment Not on file Care Teams Landscape Maintenance Internship Relationship Specialty Start Date End Date Jose Guadalupe Holt MD [address] [place] [address] PCP - General Family Medicine 04/27/24
--- OUTSIDE RECORDS SUMMARY | 2024-10-05 06:13 | XMS_ITS | Data Portability ---
Author Organization [place] [facility] Clinical Insight, Main Office Address [address] [place] [address] Care Team Providers Care Bean Picker Name Role Phone MANDI BUTLER Primary Care Provider Assessment No assessment recorded. Plan of Treatment Reminders Order Date Submit Date Provider Last Modified By Organization Details Last Modified Time Details Appointments None recorded. Lab None recorded. Referral None recorded. Procedures cerumen removal (PROC) 2023 [place] [id number] Not available 10:20:21 Surgeries None recorded. Imaging audiogram + tympanogram [address] [facility] (Audiology), [address] [place] [address], [id number], 04:27:41 Medication Orders None recorded. Patient TargetsNo targets recorded. Patient Instructions Encounter Date Encounter Id Patient Instructions Last Modified By Organization Details Last Modified Time 05/31/2024 [id number] Patient is very interested in pursuing an ETBD. she will see Dr. Catherine for surgical consultation. While awaiting for her appointment she will obtain an audiogram and a sinus CT for further diagnostics. [email or web address] Not available 05/31/2024 12:08:43 Reason for Referral None Reported. Results Created Date Observation Date Name Description Value Unit Range Abnormal Flag Note LastModifiedBy Organization Detail LastModifiedTime 06/08/2006/07/2024 CT, sinus es, w/o contr ast No observ ation record ed. [address], [address], 06/19/2024 11:29:11 07/03/2006/07/2024 CT, sinus es, w/o contr ast No observ ation record ed. [facility] [address], [place], [address], 07/03/2024 16:02:38 Result Notes None recorded. Problems Name Problem SNOMED Code Status Onset Date Resolution Date Notes Provider Name and Address Organization Details Recorded Time Dysfunction of eustachian tube 82492149 Active 2023 Tere Ugalde RN null, [facility] [employer] [facility] 4 11:46:43 Chronic sinusitis 69881267 Active 2023 Tere Ugalde RN null, [facility] [employer] [facility] 4 11:46:52 Impacted cerumen in right ear 6608590540080 103 Active 2023 ARLYN Mcintosh [address], [place], [address], [facility] [employer] [facility] 4 12:06:47 Asymmetrica l sensorineur al hearing loss 210677000 Active 2023 ARLYN Mcintosh [address], [place], [address], [facility] [employer] [facility] 4 12:07:06 Problem Notes None recorded. Procedures Surgical History Date Name Laterality Status Provider Name and Address Organization Details Recorded Time myringotomy and insertion of tympanic ventilation tube completed Tere Ugalde RN [facility] [employer] [facility] 05/31/2024 11:16:06 Imaging Results Imaging Date Name Status LastModified by Organiz [facility] Details LastModified Time 06/07/2024 CT, sinuses, w/o contrast completed [email or web address], [place], [address], 06/19/2024 11:29:11 06/07/2024 CT, sinuses, w/o contrast completed [facility] [address], [place], [address], 07/03/2024 16:02:38 Procedure Notes None recorded. Medical Equipment None Reported. Allergies Allergen ID Allergen Name Allergen Category Reaction Reaction Severity Criticality Documentation Date Start Date Code Code System Note Provider Name and Address Organization Details Recorded Time 41157 cat dander environme nt cough Not available Not available 05/29/2024 [address] [facility] 4 15:35:35 [address]695 tree and shrub pollen environme nt,medica tion cough Not available Not available 05/29/2024 32463 [facility] 4 15:35:45 [address]95[address] Latex (substanc e) environme nt,medica tion rash Not available Not available 05/29/2024 38772 8007 SNOMED Conchita Juares [facility] 15:36:02 Medications Name Sig Start Date Stop Date Status Note LastModified by Organization Details LastModified Time azithromyci n 250 mg tablet TAKE 2 TABLETS BY MOUTH FOR 1 DAY THEN TAKE 1 TABLET BY MOUTH DAILY FOR 4 DAYS 05/31 completed Not Available Not Available Not Available amlodipine 2.5 mg tablet active Not Available Not Available Not Available spironolact one 25 mg tablet active Not Available Not Available Not Available lisinopril 5 mg tablet 05/31 completed Not Available Not Available Not Available epinephrine 0.3 mg/0.3 mL injection, auto-inject or INJECT 1 PEN IN THE MUSCLE ONE TIME DIRECTED active Not Available Not Available No t Available finasteride 5 mg tablet active Not Available Not Available Not Available escitalopra m 20 mg tablet TAKE 1 TABLET BY MOUTH AT BEDTIME active Not Available Not Available No t Available bupropion HCl XL 300 mg 24 hr tablet, extended release TAKE 1 TABLET BY MOUTH EVERY MORNING active Not Available Not Available No t Available bupropion HCl XL 150 mg 24 hr tablet, extended release TAKE 1 TABLET BY MOUTH EVERY MORNING 05/31 completed Not Available Not Available Not Available metoprolol tartrate 25 mg tablet TAKE 1/2 TABLET BY MOUTH TWICE DAILY active Not Available Not Available No t Available duloxetine 30 mg capsule,del ayed release TAKE 1 CAPSULE BY MOUTH DAILY 05/31 completed Not Available Not Available Not Available duloxetine 60 mg capsule,del ayed release TAKE 1 CAPSULE BY MOUTH DAILY 05/31 completed Not Available Not Available Not Available eszopiclone 2 mg tablet TAKE 1 TABLET BY MOUTH EVERY DAY AT BEDTIME active Not Available Not Available No t Available eszopiclone 1 mg tablet TAKE 1 TABLET BY MOUTH EVERY DAY AT BEDTIME. REPLACES 2 MG DOSE active Not Available Not Available No t Available progesteron e active Not Available Not Available Not Available Xarelto 20 mg tablet active Not Available Not Available No t Available Viberzi 75 mg tablet TAKE 1 TABLET BY MOUTH DAILY 05/31 completed Not Available Not Available Not Available Vitals Date Recorded Body height Body temperature Body mass index (BMI) Body weight Provider Name and Address Organization Details Last Updated DateTime 05/31/2024 165.1 cm 98.2 [degF] 21 kg/m2 81164.64 g Tere Ugalde RN [facility] [employer] [facility] 05/31/2024 11:23:40 Social History Question Answer Notes LastModified by Organizat ion Details LastModified Time Tobacco Smoking Status Never Smoker Conchita wild [facility] [employer] [facility] 05/29/2024 15:36:41 What Is Your Level Of Alcohol Consumption? Occasional [email or web address] Information not available 05/29/2024 Sex: Unknown Functional Status None recorded. Mental Status None recorded. Family History Relationship Description Onset Age of this Age Resolved Age Notes LastModified by Organization Details LastModified Time Father No current problems or disability [email or web address] Not available 05/31 11:15:39 Mother No current problems or disability [email or web address] Not available 05/31 11:15:39 Notes:no ent Medical History Condition Response MRSA N BACK INJECTIONS N ALLERGIES/HAYFEVER N LUNG DISEASE/DISORDER N INSOMNIA N HISTORY OF DRUG ABUSE N ESRD N RADIATION / CHEMOTHERAPY N COPD N HIGH CHOLESTEROL / HYPERLIPIDEMIA N HYPERTHYROIDISM N PVD N BLOOD DISEASES N EAR OR HEARING PROBLEMS N HYPOTHYROIDISM N SHINGLES N DEPRESSION (INCLUDING POST ) N BACK / NECK PROBLEMS N HAVE YOU BEEN HOSPITALIZED OR SEEN IN [facility] IN THE PAST YEAR ? N FAILED BACK SYNDROME N STROKE/TIA N POLYCYSTIC OVARIES N OBESITY N HISTORY WITH COMPLICATIONS WITH ANESTHES IA ? N ANEURYSM N Do you have Advance directive? N USE OF BLOOD THINNERS N NO SIGNIFICANT PAST MEDICAL HISTORY N DIABETES, TYPE N VON WILLIBRAND'S DISEASE N PARATHYROID DISEASE N ENT N SEASONAL ALLERGIES N HEARTBURN / REFLUX N POST LAMINECTOMY SYNDROME N HEPATITIS / LIVER DISEASE N SLEEP DISORDER Y ARTERIAL INSUFFICIENCY N SEIZURES/EPILEPSY N HEADACHES/MIGRAINES N CHF N PACEMAKER N DIZZINESS N HEART DISEASE/HEART PROBLEMS N AIDS/HIV N NEUROPSYCHOLOGICAL N HYPERTENSION Y CANCER: SPECIFY N TOURETTE'S N BLOOD TRANSFUSION N ANESTHESIA COMPLICATIONS N ANEMIA/BLOOD DISORDER N CHRONIC EAR INFECTIONS N ATRIAL FIBRILLATION N AUTOIMMUNE DISEASE N TUBERCULOSIS N Gynecological HistoryNo gynecological history recorded. Obstetrics History GPAL:G 0 P 0 0 0 0 Past Encounters Encounter ID Performer Location Encounter Start Date Encounter Closed Date Diagnosis/Indication Diagnosis SNOMED-CT Code Diagnosis ICD10 Code Diagnosis Note [id number] Terefrederic NavarreteARLYN long [facility] Zaki Colindres [address] [place] [address] 05/31/2024 11:01:55 05/31/2024 12:09:31 Impacted cerumen in right ear 6746158361 135650 H61.21 Asymmetric al sensorineural hearing loss 945532417 H90.5 Chronic sinusitis 869481 00 J32.9 Health Concerns Section Related Observation LastModified by Organization Detai ls LastModified Time None Recorded Concern Status LastModified by Organization Details LastModified Time None Recorded Advance Directives Directive None Recorded Payers Encounter Date Sequence Insurance Name Policy Number Policy Hsu Covered Member ID Hsu Member ID Guarantor Name 05/31/2024 1 [facility] (MEDICARE REPLACEMENT/A DVANTAGE - PPO) [id number] Nasreen Garcia [id number] Nsareen Garcia Notes Date Note Type Note Provider Name and Address Organization Details Recorded Time 05/31/2024 text/html this patient has a past medical history significant for HTN, seasonal allergies, and LUTHER on CPAP. She presents for bilateral cerumen impaction. She reports having difficulties with her hearing affecting her left side for over 25 years. She states that when she was a child she had had her ear flushed and had likely endured a tympanic membrane rupture. she has not had an audiogram. We will obtain an audiogram. She is interested in pursuing surgical intervention for an ETBD to the left ear. She was scheduled in July with an ENT specialist in [place] but was unaware that this office can perform the necessary surgical options. She also reports sinus congestion and pressure for many years. She does follow with an minor league baseball player and receives allergy shots. In addition she does take Heidy with minimal symptom management. She has not had a sinus CT. We will obtain a sinus CT. She also reports feeling foggy that has been persistent over the last several years despite use of her CPAP nightly. She does note that she is seeing a new sleep medicine doctor at [facility] and is due to have an overnight sleep study for further diagnostics. She does report a recent MRI of her brain with negative findings. Tere Johns, [facility] [address] [facility], [facility] [address], [place], [address], [place] [facility] 05/31/2024 12:08:48 OBGyn Episode No OBEpisode recorded.
--- OUTSIDE RECORDS SUMMARY | 2024-10-05 06:13 | XMS_ITS | Clinical Summary ---
Author Organization [facility] [address] Address [address] [place] [address] Care Team Providers Care Hvac Technician Residential Name Role Phone Ge Ramírez MD Primary Care Provider Ibrahima Noyola Unavailable [phone] Allergies Active Allergy Reactions Criticality Noted Date Comments Penicillins Rash Medium Medications multivitamin tablet tablet take 1 tablet by oral route every day with food 0 0 6 Active ascorbate calcium 500 mg tablet Take by mouth daily. Active fish oil-dha-epa 1,200-144-216 mg capsule Take by mouth daily. Active finasteride (PROSCAR) 5 mg tablet Take 2.5 mg by mouth daily 9 Active calcium citrate 250 mg calcium tablet Take 2 tablets (500 mg total) by mouth daily Active cholecalcifero l (VITAMIN D-3) 2000 unit capsule Take 1 capsule (2,000 Units total) by mouth 2 (two) times a day Active escitalopram (LEXAPRO) 20 mg tablet 2 Active EPINEPHrine 0.3 mg/0.3 mL auto-injection syringe INJECT 1 PEN IN THE MUSCLE ONE TIME DIRECTED 4 Active UNKNOWN TO PATIENT Allergy shots Active flecainide (TAMBOCOR) 100 mg tablet Take 1 tablet (100 mg total) by mouth daily as needed (A-fib) 15 tablet 4 Active rivaroxaban (Xarelto) 20 mg tablet TAKE 1 TABLET(20 MG) BY MOUTH DAILY WITH DINNER 90 tablet 3 4 Active spironolactone (ALDACTONE) 25 mg tablet TAKE 1 TABLET(25 MG) BY MOUTH DAILY 90 tablet 3 5 Active Xarelto 20 mg tablet TAKE 1 TABLET(20 MG) BY MOUTH DAILY WITH DINNER 90 tablet 4 024 Discontinued spironolactone (ALDACTONE) 25 mg tablet TAKE 1 TABLET(25 MG) BY MOUTH DAILY 90 tablet 4 025 Discontinued Active Problems Problem Noted Date Diagnosed Date Raynaud's disease without gangrene 12/05/2023 Bradycardia 11/01/2022 Medication side effects 10/19/2021 Labile hypertension 05/23/2019 Paroxysmal atrial fibrillation (CMS/HCC) 019 Chronic anticoagulation 02/20/2019 Left carotid bruit 10/25/2018 Dizziness 10/25/2018 Patent foramen ovale 11/11/2016 Overview (02/04/2017): PFO (patent foramen ovale) Left ventricular hypertrophy 08/18/2016 Overview (12/23/2016): LVH (left ventricular hypertrophy) Rapid palpitations 08/18/2016 Overview (12/23/2016): Rapid palpitations LUTHER on CPAP 08/18/2016 Overview (12/23/2016): LUTHER on CPAP Essential hypertension 08/18/2016 Overview (12/23/2016): HTN (hypertension), benign Resolved Problems Problem Noted Date Diagnosed Date Resolved Date Aortic valve regurgitation 11/11/2016 0 12/08/2018 Overview (02/04/2017): Aortic valve insufficiency, unspecified etiology Encounters Date Type Department Care Team Description 09/24/2024 9:33 AM CANAL EQUIPMENT MECHANIC - 09/24/2024 11:59 PM CANAL EQUIPMENT MECHANIC Hospital Encounter [facility] [address] [place] [address] Discharge Disposition: Discharge to home or self care 09/24/2024 Telephone [facility] Advanced Medicine ([facility]) - [facility] ENT [address] [facility] 11th [place] [address] [place] [address] Evelin Tipton, [place] 09/20/2024 Telephone [facility] [address] [facility] 11th [place] [address] Evelin Tipton, [place] 09/19/2024 6:33 PM CANAL EQUIPMENT MECHANIC - 09/19/2024 11:59 PM CANAL EQUIPMENT MECHANIC Hospital Encounter [facility] ([facility]) [address] [place] [address] Discharge Disposition: Discharge to home or self care 09/17/2024 Telephone [facility] First Floor [address] [place] [address] Isabel Botello, [facility] 08/30/2024 2:09 PM CANAL EQUIPMENT MECHANIC - 08/30/2024 11:59 PM CANAL EQUIPMENT MECHANIC Hospital Encounter [facility] ([facility]) [address] [place] [address] Discharge Disposition: Discharge to home or self care 08/27/2024 Telephone [facility] Diagnostic [address] [place] [address] Phylicia Cornell, [facility] 08/15/2024 9:15 AM CANAL EQUIPMENT MECHANIC Office Visit [facility] Cardiology at [address] [place] [address] Silvia Medina MD Paroxysmal atrial fibrillation (CMS/HCC) (HCC) (Primary Dx); Chronic anticoagulation; Essential hypertension from Last 3 Months Surgical History Surgery Date Site/Laterality Comments TOTAL ABDOMINAL HYSTERECTOMY Hysterectomy, total Medical History Medical History Date Comments Hypertension Hypertension Heart murmur Heart murmur Sleep apnea Family History Medical History Relation Name Comments Coronary artery disease Father Kd Lopez Hypertension Father Kd Lopez Stroke Father Kd Lopez Heart disease Other 1 Family history of Cardiovascular disease; Cancer Other 2 Family history of Cancer, unknown; Hyperlipidemia Other 3 Family histor y of Hyperlipidemia; Hypertension Other 4 Family history of Hypertension; Stroke Other 5 Family history of Stroke; Relation Name Status Comments Father Kd Lopez Other 1 Other 2 Other 3 Other 4 Other 5 Social History Tobacco Use Types Packs/Day Years Used Date Smoking Tobacco: Never Smokeless Tobacco: Never Tobacco Cessation:Counseling Given: Not Answered Alcohol Use Standard Drinks/Week Comments No 0 (1 standard drink = 0.6 oz pur e alcohol) Comments No Sex and Gender Information Value Date Recorded Sex Assigned at Not on file Legal Sex Female 4:19 AM CANAL EQUIPMENT MECHANIC Gender Identity Not on file Sexual Orientation Not on file Obstetrics History Last Filed Vital Signs Vital Sign Reading Time Taken Comments Blood Pressure 98/58 08/15/2024 9:25 AM CANAL EQUIPMENT MECHANIC Pulse 59 08/15/2024 9:25 AM CANAL EQUIPMENT MECHANIC Temperature 37.2 ??C (98.9 ??F) 02/15/2021 9:27 PM CD T Respiratory Rate 20 02/15/2021 9:27 PM CDT Oxygen Saturation 98% 08/15/2024 9:25 AM CANAL EQUIPMENT MECHANIC Inhaled Oxygen Concentration - - Weight 56.2 kg (124 lb) 08/15/2024 9:25 AM CANAL EQUIPMENT MECHANIC Height 165.1 cm (5' 5 ) 08/15/2024 9:25 AM CANAL EQUIPMENT MECHANIC Body Mass Index 20.63 08/15/2024 9:25 AM CANAL EQUIPMENT MECHANIC Plan of Treatment Health Maintenance Due Date Last Done Comments Breast Cancer Screening-Mammogram 1955 Colon Cancer Screening-Colonoscopy 1955 Depression Screening 1955 Fall Risk Assessment 1955 Hepatitis C Screening 1955 Osteoporosis Screening-Bone Density Scan 1953 DTaP/Tdap/Td Vaccine (1 - Tdap) 1964 Hepatitis B Screening 1971 Zoster Vaccine (1 of 2) 2003 Pneumococcal vaccine 65+ (1 of 1 - PCV) 2018 Well Visit 65+ 2018 Influenza Vaccine (#1) 2024 5, 06/13/2014, 06/10/2013 Procedures Procedure Name Priority Date/Time Associated Diagnosis Comments NEURO MR OUTSIDE REFERENCE Routine 09/24/2024 9:34 AM CANAL EQUIPMENT MECHANIC US TRANSFER OF OUTSIDE FILMS Routine 09/19/2024 6:33 PM CANAL EQUIPMENT MECHANIC NEURO MR OUTSIDE REFERENCE Routine 08/30/2024 2:09 PM CANAL EQUIPMENT MECHANIC from Last 3 Months Results * Neuro MR Outside Reference (09/24/2024 9:34 AM CANAL EQUIPMENT MECHANIC) Impressions [facility] - 09/24/2024 9:34 AM CANAL EQUIPMENT MECHANIC These images are for Reference purposes only and have not been reviewed by [facility] Radiology. ??There will be no report generated by a [facility] Radiologist. Narrative [facility] - 09/24/2024 9:34 AM CANAL EQUIPMENT MECHANIC EXAMINATION: ??Images For Reference Purposes Only Tyron Ocasio MD [facility] MRI PROCEDURES Final Result Performing Organization Address [facility] de Phone Number [email or web address] * US Outside Reference (09/19/2024 6:33 PM CANAL EQUIPMENT MECHANIC) Impressions [email or web address] - 09/19/2024 6:33 PM CANAL EQUIPMENT MECHANIC These images are for Reference purposes only and have not been reviewed by [facility] Radiology. ??There will be no report generated by a [facility] Radiologist. Narrative [facility] - 09/19/2024 6:33 PM CANAL EQUIPMENT MECHANIC EXAMINATION: ??Images For Reference Purposes Only Tyron Ocasio MD [facility] US PROCEDURES Final Result Performing Organization Address [facility] de Phone Number [email or web address] * Neuro MR Outside Reference (08/30/2024 2:09 PM CANAL EQUIPMENT MECHANIC) Impressions [email or web address] - 08/30/2024 2:09 PM CANAL EQUIPMENT MECHANIC These images are for Reference purposes only and have not been reviewed by [facility] Radiology. ??There will be no report generated by a [facility] Radiologist. Narrative [facility] - 08/30/2024 2:09 PM CANAL EQUIPMENT MECHANIC EXAMINATION: ??Images For Reference Purposes Only Tyron Ocasio MD [facility] [place] PROCEDURES Final Result Performing Organization Address [facility]/State/[facility] de Phone Number [email or web address] from Last 3 Months Insurance [employer] Member Subscriber Plan / Payer (Ef fective 2018-Present) Name:Nasreen Garcia Relation to Subscriber:Self Name:Nasreen Garcia Payer ID:[id number] (NAIC) Type:[facility] MEDICARE Address: [place] [phone] MEDICARE SOLUTIONS Member Subscriber Plan / Payer (Ef fective 2018-Present) Name:Nasreen Garcia Relation to Subscriber:Self Name:Nasreen Garcia Payer ID:[id number] (NAIC) Type:[facility] MEDICARE Address: [place] [phone] MEDICARE SOLUTIONS Care Teams Hvac Technician Residential Relationship Specialty Start Date End Date Ge Ramírez MD [address] [facility] [address] [place] [address] PCP - General Otolaryngology 09/17/24 Ibrahima Noyola PA [address] [place] [address] Physician Stockroom Coordinator 09/17/24
--- OUTSIDE RECORDS SUMMARY | 2024-10-05 06:13 | XMS_ITS | Referral Summary ---
Author Organization [facility] [address] Address [address] [place] [address] Care Team Providers Care Photographic Plate Maker Name Role Phone Ge Ramírez MD Primary Care Provider Ibrahima Noyola Unavailable [phone] Encounters Date Type Department Care Team Description 09/24/2024 Telephone [facility] ([facility]) - [facility] [address] [facility] 11th [place] [address] [place] [address] Evelin Tipton, MS 09/24/2024 9:33 AM MARKETING SUPPORT COORDINATOR - 09/24/2024 11:59 PM MARKETING SUPPORT COORDINATOR Hospital Encounter [facility] ([facility]) [facility] [place] [address] Discharge Disposition: Discharge to home or self care 09/20/2024 [facility]phone [facility] ([facility]) - [facility] [address] [facility] 11th [place] [address] [place] [address] Evelin Tipton, MS 09/19/2024 6:33 PM MARKETING SUPPORT COORDINATOR - 09/19/2024 11:59 PM MARKETING SUPPORT COORDINATOR Hospital Encounter [facility] ([facility]) [address] [place] [address] Discharge Disposition: Discharge to home or self care 09/17/2024 Telephone [facility] [address] Floor [address] [place] [address] Isabel Botello RMA 08/30/2024 2:09 PM MARKETING SUPPORT COORDINATOR - 08/30/2024 11:59 PM MARKETING SUPPORT COORDINATOR Hospital Encounter [facility] ([facility]) [facility] [place] [address] Discharge Disposition: Discharge to home or self care 08/27/2024 Telephone [facility] [address] [facility] First Floor [address] [place] [address] Phylicia Cornell, ADOLFO 08/15/2024 9:15 AM MARKETING SUPPORT COORDINATOR Office Visit [facility] Cardiology at [address] [place] [address] Silvia Medina MD Paroxysmal atrial fibrillation (CMS/HCC) (HCC) (Primary Dx); Chronic anticoagulation; Essential hypertension from Last 3 Months Allergies Active Allergy Reactions Criticality Noted Date [...] Overview (02/04/2017): Aortic valve insufficiency, unspecified etiology Social History Tobacco Use Types Packs/Day Years Used Date Smoking Tobacco: Never Smokeless Tobacco: Never Tobacco Cessation:Counseling Given: Not Answered Alcohol Use Standard Drinks/Week Comments No 0 (1 standard drink = 0.6 oz pur e alcohol) Comments No Sex and Gender Information Value Date Recorded Sex Assigned at Not on file Legal Sex Female 4:19 AM MARKETING SUPPORT COORDINATOR Gender Identity Not on file Sexual Orientation Not on file Last Filed Vital Signs Vital Sign Reading Time Taken Comments Blood Pressure 98/58 08/15/2024 9:25 AM MARKETING SUPPORT COORDINATOR Pulse 59 08/15/2024 9:25 AM MARKETING SUPPORT COORDINATOR Temperature 37.2 ??C (98.9 ??F) 02/15/2021 9:27 PM CD T Respiratory Rate 20 02/15/2021 9:27 PM CDT Oxygen Saturation 98% 08/15/2024 9:25 AM MARKETING SUPPORT COORDINATOR Inhaled Oxygen Concentration - - Weight 56.2 kg (124 lb) 08/15/2024 9:25 AM MARKETING SUPPORT COORDINATOR Height 165.1 cm (5' 5 ) 08/15/2024 9:25 AM MARKETING SUPPORT COORDINATOR Body Mass Index 20.63 08/15/2024 9:25 AM MARKETING SUPPORT COORDINATOR Plan of Treatment Not on file Procedures Procedure Name Priority Date/Time Associated Diagnosis Comments NEURO MR OUTSIDE REFERENCE Routine 09/24/2024 9:34 AM MARKETING SUPPORT COORDINATOR US TRANSFER OF OUTSIDE FILMS Routine 09/19/2024 6:33 PM MARKETING SUPPORT COORDINATOR NEURO MR OUTSIDE REFERENCE Routine 08/30/2024 2:09 PM MARKETING SUPPORT COORDINATOR from Last 3 Months Results * Neuro MR Outside Reference (09/24/2024 9:34 AM MARKETING SUPPORT COORDINATOR) Impressions [facility] - 09/24/2024 9:34 AM MARKETING SUPPORT COORDINATOR These images are for Reference purposes only and have not been reviewed by [facility]. ??There will be no report generated by a [facility]iologist. Narrative [facility] - 09/24/2024 9:34 AM MARKETING SUPPORT COORDINATOR EXAMINATION: ??Images For Reference Purposes Only us Tyron Ocasio MD IMG MRI PROCEDURES Final Result [facility] * US Outside Reference (09/19/2024 6:33 PM MARKETING SUPPORT COORDINATOR) Impressions [facility] - 09/19/2024 6:33 PM MARKETING SUPPORT COORDINATOR These images are for Reference purposes only and have not been reviewed by [facility]. ??There will be no report generated by a [facility] Radiologist. Narrative [facility] - 09/19/2024 6:33 PM MARKETING SUPPORT COORDINATOR EXAMINATION: ??Images For Reference Purposes Only us Tyron Ocasio MD IMG US PROCEDURES Final Result [facility] * Neuro MR Outside Reference (08/30/2024 2:09 PM MARKETING SUPPORT COORDINATOR) Impressions [facility] - 08/30/2024 2:09 PM MARKETING SUPPORT COORDINATOR These images are for Reference purposes only and have not been reviewed by [facility]. ??There will be no report generated by a [facility]iologist. Narrative [facility] - 08/30/2024 2:09 PM MARKETING SUPPORT COORDINATOR EXAMINATION: ??Images For Reference Purposes Only us Tyron Ocasio MD IMG MRI PROCEDURES Final Result Performing Organization Address City/[facility]/ZIP Co de Phone Number [facility] from Last 3 Months Insurance MEDICARE [employer]IONS MED[employer] MED[employer]IONS Care Teams Photographic Plate Maker Relationship Specialty Start Date End Date Ge Ramírez MD [address] [facility] [address] [place] [address] PCP - General Otolaryngology 09/17/24 Ibrahima Noyola PA [address] [place] [address] Physician Multimedia Coordinator 09/17/24
--- OUTSIDE RECORDS SUMMARY | 2024-10-05 06:13 | XMS_ITS | Data Portability ---
Author Organization [facility] [employer], [facility] Address [address] [address] Assessment No assessment recorded. Plan of Treatment Reminders Order Date Submit Date Provider Last Modified By Organization Details Last Modified Time Details Appointments None recorded. Lab None recorded. Referral None recorded. Procedures None recorded. Surgeries None recorded. Imaging US, lower extremity, nonvascular 2023 024 [email or web address] Not available 09:43:05 Medication Orders None recorded. Patient TargetsNo targets recorded. Patient InstructionsNo instructions recorded. Reason for Referral None Reported. Problems No Known Problems Medical Equipment None Reported. Allergies No known drug allergies Medications Name Sig Start Date Stop Date Status Note LastModified by Organization Details LastModified Time azithromycin 250 mg tablet TAKE 2 TABLETS BY MOUTH FOR 1 DAY THEN TAKE 1 TABLET BY MOUTH DAILY FOR 4 DAYS active Not Available Not Available No t Available amlodipine 2.5 mg tablet active Not Available Not Availabl e Not Available spironolacton e 25 mg tablet active Not Available Not Available Not Available lisinopril 5 mg tablet TAKE 2 TABLETS BY MOUTH DAILY active Not Available Not Available No t Available epinephrine 0.3 mg/0.3 mL injection, auto-injector INJECT 1 PEN IN THE MUSCLE ONE TIME DIRECTED active Not Available Not Available No t Available finasteride 5 mg tablet active Not Available Not Available No t Available clindamycin phosphate 1 % topical solution APPLY 2 DROPS DAILY TO PROCEDURE SITE active Not Available Not Available No t Available escitalopram 20 mg tablet TAKE 1 TABLET BY [...] Not Available Not Available No t Available metoprolol tartrate 25 mg tablet TAKE 1/2 TABLET BY MOUTH TWICE DAILY active Not Available Not Available No t Available duloxetine 30 mg capsule,delay ed release TAKE 1 CAPSULE BY MOUTH DAILY active Not Available Not Available No t Available duloxetine 60 mg capsule,delay ed release TAKE 1 CAPSULE BY MOUTH DAILY active Not Available Not Available No t Available eszopiclone 2 mg tablet TAKE 1 TABLET BY MOUTH EVERY DAY AT BEDTIME active Not Available Not Available N ot Available eszopiclone 1 mg tablet TAKE 1 TABLET BY MOUTH EVERY DAY AT BEDTIME. REPLACES 2 MG DOSE active Not Available Not Available No t Available Xarelto 20 mg tablet active Not Available Not Available Not Available Viberzi 75 mg tablet TAKE 1 TABLET BY MOUTH DAILY active Not Available Not Available No t Available Vitals Date Recorded Body height Body mass index (BMI) Body weight Heart rate Systolic blood pressure Diastolic blood pressure Provider Name and Address Organization Details Last Updated DateTime 4 165.1 cm 20.6 kg/m2 12221.4 5 g 58 /min 116 mm[Hg] 63 mm[Hg] [email or web address] 4 13:46:37 Date Recorded Body height Heart rate Body mass index (BMI) Body weight Systolic blood pressure Diastolic blood pressure Provider Name and Address Organization Details Last Updated DateTime 4 165.1 cm 68 /min 20.6 kg/m2 10365.4 5 g 122 mm[Hg] 72 mm[Hg] [facility] 4 12:10:21 Date Recorded Body height Body mass index (BMI) Body weight Heart rate Systolic blood pressure Diastolic blood pressure Provider Name and Address Organization Details Last Updated DateTime 4 165.1 cm 20.6 kg/m2 38329.4 5 g 72 /min 122 mm[Hg] 62 mm[Hg] [facility] 4 11:31:41 Date Recorded Body height Body mass index (BMI) Body weight Provider Name and Address Organization Details Last Updated DateTime 05/16/2024 165.1 cm 20.6 kg/m2 17551.45 g [email or web address] 05/16/2024 12:51:02 Social History Question Answer Notes LastModified by Organizat ion Details LastModified Time Tobacco Smoking Status Never Smoker [facility]ON [facility], [facility] 02/03/2024 13:50:03 What Is Your Level Of Alcohol Consumption? Occasional [email or web address] Information not available 02/03/2024 What Is Your Level Of Caffeine Consumption? None [email or web address] Information not available 02/03/2024 Are You Currently Employed? Yes Information not available 02/03/2024 What Is Your Occupation? Housewife [email or web address] Information not available 02/03/2024 What Is Your Relationship Status? [email or web address] Information not available 02/03/2024 Do You Use Any Illicit Or Recreational Drugs? No [email or web address] Information not available 02/03/2024 Do You Or Have You Ever Used Any Other Forms Of Tobacco Or Nicotine? No [email or web address] Information not available 02/03/2024 Sex: Unknown Functional Status Question Answer Note LastModified by Organization D etails LastModified Time What is your exercise level? Moderate [email or web address] Information not available 02/03/2024 Mental Status None recorded. Family History Nothing Reported. Medical History Condition Response Other Cancer N HIV or AIDS N Coronary Artery Disease N Gout N Kidney Stones N Hyperthyroidism N Breast Cancer N Head Trauma/Injury N Hernia N Lung Cancer N Hypothyroidism N Lung Disease N Depression N COPD N Blood Clots N Pneumonia N Pacemaker N Parkinson's N Anxiety Disorder N Multiple Sprains N Arthritis Y Alcohol / Substance Abuse N Kidney Cancer N Cancer N Melanoma N Stroke N Emily Danlos Syndrome (EDS) N Bowel Dysfunction N Leg or Foot Ulcers N Neck Injury N High Cholesterol N Skin Cancer N Liver Disease N Rheumatoid Arthritis N Fibromyalgia N Headaches N Gastric Issues N Concussion N Kidney Disease N Heart Problems N Scoliosis N Chronic use of Pain Medication N Prostate Cancer N Migraines N Thyroid Problems N Alzheimers N DVT N Autoimmune Disorder N Anemia N Multiple Sclerosis N Tendon Tear N Ulcers N Heart Attack ([place]) N Osteopenia N Diabetes N Bleeding Disorder N Seizures/Epilepsy N Cardiac Stent N Tuberculosis N A-FIB N BPH N Lymphoma N Urinary Tract Infection N Back Problems N Diverticulitis N Dementia N Vision Problems N Asthma N Lupus N Mcc Medication Use N Peripheral Vascular Disease N Sleep Apnea N Sleep Disorder N GERD/Reflux N Hepatitis N Aneurysm N Thyroid Cancer N Heart Disease N Bronchitis N Pulmonary Embolism N Hypertension Y Osteoporosis N Gynecological HistoryNo gynecological history recorded. Obstetrics History GPAL:G 0 P 0 0 0 0 Past Encounters Encounter ID Performer Location Encounter Start Date Encounter Closed Date Diagnosis/Indication Diagnosis SNOMED-CT Code Diagnosis ICD10 Code Diagnosis Note [id number] Jose Elias Shah, DO [facility] [address] [place] [address] 02/03/2024 11:29:30 02/07/2024 08:32:28 Pain of bilateral knee regions 1562334403 36443 M25.562 Bilateral osteoarthritis of knees 5656586833 90030 M17.0 I reviewed the findings and the exam with the patient today. I believe her osteoarthr itic changes are very mild at this time. We did discuss the options and I do believe after our discussion that physical therapy would be the appropriat e initial course for her. She will do this for 4 to 6 weeks and let me know if she is not seeing some improvemen t and we can reevaluate . No other changes are recommende d at this time. [id number] Jose Elias Shah, DO [facility] [address] [facility] [place] [address] 04/16/2024 09:45:35 04/18/2024 13:39:35 Bilateral osteoarthritis of knees [id number] 15018 M17.0 HYALGAN BILATERAL KNEESProce dure: Injection of Hyalgan to bilateral kneesInter im history: Patient denies any antecedent fever or recent illness. See above.Info rmed Consent: Obtained pre-proced ure - verbally discussed in full the risks, benefits, realistic outcomes, and alternativ es with the patient and formal informed consent signed after verbal discussion completed and all questions answered to patient? s satisfact ion Patient affirms that all pre and post procedure instructio n handouts have been reviewed thoroughly . Specific risks discussed (including but not limited to) infection, allergic reaction, syncope, nerve/liga ment/tendo n damage, bleeding, blood clot, embolism, scar formation, flare response, increase in pain, need for surgical interventi on or hospitaliz ation. In addition, the risks of viscoelast ic exposure/i ntolerance were explained to the patient. The patient understood these risks and agreed to proceed. Alternativ es including surgical interventi on were discussed as well. All questions answered fully and to patient's satisfacti on prior to beginning procedure. Procedure left knee: All injection sites were asepticall y prepped well with Prevantics brand chlorhexid ine/alcoho l prep, sterilely draped and topical anesthesia was obtained using ethyl chloride spray at said injection sites. Sterile technique was followed for all injections including sterile cleansing of ultrasound probe, sterile gloving of provider and staff, and use of sterile ultrasound gel. In addition all injection sites sprayed with topical anesthesia using ethyl chloride spray at said injection sites Ultrasound guidance was employed to ensure exact placement of a 22 gauge needle into the medial subpatella r space. Once ensured in proper place 1 cc of .0125% was injected into the joint followed by Hyalgan. Entire procedure performed without problem or complicati on. Sterile band-aids applied to all sites. Procedure right knee: Procedure repeated for the right knee as above Patient tolerated the entire procedure well and no complicati ons or blood loss was noted. We will see her back in 1 week to repeat the injections . Pain of bi lateral knee regions [id number] 66347 M25.562 [id number] Jose Elias Shah, DO [facility] [address] [facility] ,[address] [place] [address] 04/23/2024 10:59:58 04/23/2024 15:11:30 Bilateral osteoarthritis of knees [id number] 89203 M17.0 HYALGAN BILATERAL KNEESProce dure: Injection of Hyalgan to bilateral kneesInter im history: Patient denies any antecedent fever or recent illness. See above.Info rmed Consent: Obtained pre-proced ure - verbally discussed in full the risks, benefits, realistic outcomes, and alternativ es with the patient and formal informed consent signed after verbal discussion completed and all questions answered to patient? s satisfact ion Patient affirms that all pre and post procedure instructio n handouts have been reviewed thoroughly . Specific risks discussed (including but not limited to) infection, allergic reaction, syncope, nerve/liga ment/tendo n damage, bleeding, blood clot, embolism, scar formation, flare response, increase in pain, need for surgical interventi on or hospitaliz ation. In addition, the risks of viscoelast ic exposure/i ntolerance were explained to the patient. The patient understood these risks and agreed to proceed. Alternativ es including surgical interventi on were discussed as well. All questions answered fully and to patient's satisfacti on prior to beginning procedure. Procedure left knee: All injection sites were asepticall y prepped well with Prevantics brand chlorhexid ine/alcoho l prep, sterilely draped and topical anesthesia was obtained using ethyl chloride spray at said injection sites. Sterile technique was followed for all injections including sterile cleansing of ultrasound probe, sterile gloving of provider and staff, and use of sterile ultrasound gel. In addition all injection sites sprayed with topical anesthesia using ethyl chloride spray at said injection sites Ultrasound guidance was employed to ensure exact placement of a 22 gauge needle into the medial subpatella r space. Once ensured in proper place 1 cc of .0125% was injected into the joint followed by Hyalgan. Entire procedure performed without problem or complicati on. Sterile band-aids applied to all sites. Procedure right knee: Procedure repeated for the right knee as above Patient tolerated the entire procedure well and no complicati ons or blood loss was noted. We will see her back in 1 week to repeat the injections for the third round. [id number] Jose Elias Shah, DO [facility] [address] [facility] ,[address] [place] [address] 05/16/2024 11:15:35 05/23/2024 15:01:02 Bilateral osteoarthritis of knees [id number] 73907 M17.0 HYALGAN BILATERAL KNEESProce dure: Injection of Hyalgan to bilateral kneesInter im history: Patient denies any antecedent fever or recent illness. See above.Info rmed Consent: Obtained pre-proced ure - verbally discussed in full the risks, benefits, realistic outcomes, and alternativ es with the patient and formal informed consent signed after verbal discussion completed and all questions answered to patient? s satisfact ion Patient affirms that all pre and post procedure instructio n handouts have been reviewed thoroughly . Specific risks discussed (including but not limited to) infection, allergic reaction, syncope, nerve/liga ment/tendo n damage, bleeding, blood clot, embolism, scar formation, flare response, increase in pain, need for surgical interventi on or hospitaliz ation. In addition, the risks of viscoelast ic exposure/i ntolerance were explained to the patient. The patient understood these risks and agreed to proceed. Alternativ es including surgical interventi on were discussed as well. All questions answered fully and to patient's satisfacti on prior to beginning procedure. Procedure left knee: All injection sites were asepticall y prepped well with Prevantics brand chlorhexid ine/alcoho l prep, sterilely draped and topical anesthesia was obtained using ethyl chloride spray at said injection sites. Sterile technique was followed for all injections including sterile cleansing of ultrasound probe, sterile gloving of provider and staff, and use of sterile ultrasound gel. In addition all injection sites sprayed with topical anesthesia using ethyl chloride spray at said injection sites Ultrasound guidance was employed to ensure exact placement of a 22 gauge needle into the medial subpatella r space. Once ensured in proper place 1 cc of .0125% was injected into the joint followed by Tiffany. Entire procedure performed without problem or complicati on. Sterile band-aids applied to all sites.Proc edure right knee: Procedure repeated for the right knee as abovePatie nt tolerated the entire procedure well and no complicati ons or blood loss was noted We discussed with the patient today and we will hold off on planning any additional injection rounds. She has had good results at this point. We will contact her in 1 to 2 weeks to discuss the progress. Health Concerns Section Related Observation LastModified by Organization Detai ls LastModified Time None Recorded Concern Status LastModified by Organization Details LastModified Time None Recorded Advance Directives Directive None Recorded Payers Encounter Date Sequence Insurance Name Policy Number Policy Hsu Covered Member ID Hsu Member ID Guarantor Name 02/03/2024 1 [facility] (MEDICARE REPLACEMENT/A DVANTAGE - HMO) [id number] Nasreen Garcia [id number] Nasreen Garcia 04/16/2024 1 [facility] (MEDICARE REPLACEMENT/A DVANTAGE - HMO) [id number] Nasreen Garcia [id number] Nasreen Garcia 04/23/2024 1 [facility] (MEDICARE REPLACEMENT/A DVANTAGE - HMO) [id number] Nasreen Garcia [id number] Nasreen Garcia 05/16/2024 1 [facility] (MEDICARE REPLACEMENT/A DVANTAGE - HMO) [id number] Nasreen Garcia [id number] Nasreen Garcia Notes Date Note Type Note Provider Name and Address Organization Details Recorded Time 02/03/2024 text/html Patient is a 68-year-old female who is seen today for evaluation of her bilateral knee pain. She states her knee pain started about 1 to 2 years ago and she thinks it was associated with running. She started to cut back on her running which she used to do quite a bit and noticed some gradual improvement but it still present at times. She describes the pain as an achy pain right greater than left more on the medial and lateral joint area. She states that car rides seem to aggravate her symptoms. The pain can get up to about 4 out of 10 in severity but not more than this. She denies any weakness, locking or catching, numbness. She has been working with her chiropractor [place] [address], [address], [employer] 02/03/2024 14:09:52 04/16/2024 text/html Patient is a 69-year-old female who is known to me having been followed for her bilateral knee pain. Since last time I have seen her she did think over her options for next portion of her treatment and after discussing this she does elect to proceed with Hyalgan injections. She is here for those injections today. We did again discuss the risk, benefits, [place] [address] [place] [address], [phone], [employer] 04/16/2024 14:17:21 04/23/2024 text/html Patient is a 69-year-old female who is known to me having been followed for her bilateral knee pain. She had her first round of Hyalgan last week and has not noticed much improvement as of yet but is aware that she may not just yet. She returns for repeat injection today. She did have some questions about some long-term planning for her osteoarthritis but [place] [address] [place] [address], [phone], [employer] 04/23/2024 14:33:52 05/16/2024 text/html Patient is a 69-year-old female who is known to me having been followed for her bilateral knee pain. She states that after the first 2 rounds of the Hyalgan she has about 75% improvement. She returns today for possible third injection. No other new concerns today. She is happy with [place] [address], [place], [address], [facility], [facility] 05/18/2024 16:56:52 OBGyn Episode No OBEpisode recorded.
--- OUTSIDE RECORDS SUMMARY | 2024-10-05 06:13 | XMS_ITS | Encounter Summary ---
Author Organization [facility] Address [address] [facility] [address] [place] [address] Care Team Providers Care In Process Inspector Name Role Phone James Parker MD Primary Care Provider [phone] James Parker MD Primary Care Provider [phone] Jose Guadalupe Holt MD Primary Care Provider [phone] Ge Ramírez MD Primary Care Provider [phone] Ibrahima Noyola Unavailable [phone] Encounter Details Date Type Department Care Team (Late st Contact Info) Description 08/30/2016 Orders Only [facility] ProviderMinesh MD [address] [place] [address] Social History Tobacco Use Types Packs/Day Years Used Date Smoking Tobacco: Never Alcohol Use Standard Drinks/Week Comments No 0 (1 standard drink = 0.6 oz pur e alcohol) Comments Unknown Sex and Gender Information Value Date Recorded Sex Assigned at Not on file 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 Historical Provider [facility] JEAN PERRIN Final Result documented in this encounter Visit Diagnoses Not on filedocumented in this encounter Care Teams In Process Inspector Relationship Specialty Start Date End Date James Parker MD [address] [place] [address] PCP - General 12/10/16 12/08/20 James Parker MD [address] [place] [address] PCP - General 08/30/16 12/09/16 Jose Guadalupe Holt MD [address] [place] [address] PCP - General Family Medicine 12/09/20 09/16/24 Ge Ramírez MD [address] [facility] [address] [place] [address] PCP - General Otolaryngology 09/17/24 Ibrahima Noyola PA [address] [place] [address] Physician Mimeograph Operator 09/17/24 documented as of this encounter
--- OUTSIDE RECORDS SUMMARY | 2024-10-05 06:13 | XMS_ITS | Continuity of Care Document ---
Author Organization [facility] Address [address] [place] [address] Phone Care Team Providers Care Roof Bolter Helper Name Role Phone Cherelle Barron Unavailable Unavailable Procedures Procedure Date Office/outpatient Visit, Est Eye Exam & Treatment Eye Exam & Treatment Optic Nerve Topography Optic Nerve Topography Office/outpatient Visit, Est Advance Directives Directive Yes / No Effective Date File Name No Information Encounters Encounter Description Practice Location Reason(s) For Visit Diagnoses Date Provider Providers Copied on Encounter Office/outpat ient Visit, Est [facility], [id number] [place] [address] [address], [place], [place], [id number], [place] tel:[phone] [facility] No Information Radhames-0 [phone] Beatrice Wallace [address] , [address], [place], [address], [place]. tel:[phone] [facility], [address], [place], [place], [address], [place] tel:[phone] [facility] No Information Radhames-0 2-200 9 Beatrice Wallace [address] , [address], [place], [address], [place]. tel:[phone] [facility], [address], [place], [place], [id number], [place] tel:[phone] [facility] No Information [address] Beatrice Villarreal. [address] [facility] , [address], [place], [place], [facility], [place]. tel:[phone] [facility], [address], [place], [place], [id number], tel:[phone] [facility] No Information [address] Beatrice Wallace [address] [facility] , [address], [place], [place], [facility], [place]. tel:[phone] Referring Provider: Cherelle García, [facility], [place], [place], [facility]. tel:[phone] [place] [facility] [address], [place], [place], [id number], [place] tel:[phone] [facility] No Information 8-[address] Beatrice Villarreal. [facility] , [address], [place], [address], [place]. tel:[phone] Family History Family Member Type Diagnosis Age At Onset No Information Payers Payer name Insurance type Covered republican ID Authoriza tion(s) No Information Social History Type Description Quantity Date Captured Comments Sex Female Smoking Status No Information Chief Complaint And Reason For Visit No Information Reason For Referral Reason For Referral No Information History Of Present Illness Encounter Date Complaint History Of Prese nt Illness No Information Functional Status Date Functional Assessmen t No Information Instructions Date Instruction Additional Infor mation No Information Assessments Type Assessment Date No Information Patient Care Teams Name Effective Dates (start - stop) Status Members No Information
== END 2024-10-04 20:54 | disposition left against medical advice (07) ==
LOC: ANHED 20:56
PROVIDERS: Emergency Medicine; Emergency Provider Registered Nurse; PCP Family Medicine
DX: R07.89 Other chest pain (principal); G30.9 Alzheimer's disease, unspecified; F02.80 Dementia in other diseases classified elsewhere, unspecified severity, without behavioral disturbance, psychotic disturbance, mood disturbance, and anxiety; I10 Essential (primary) hypertension; I48.91 Unspecified atrial fibrillation
CPT/HCPCS: 36415; 71046; 80053; 82948; 83690; 84484; 85025; 85610; 85730; 93005; 99284

== ENCOUNTER 2025-05-22 12:11 | Outpatient (CLI) | payer MEDICARE, SELFPAY ==
--- NOTE | ~2025-05-22 | MM_ITS ---
EXAMINATION: screening [facility] BI w ray INDICATION: Asymptomatic, referred for screening mammogram COMPARISON: 01/06/2024 through 11/12/2020 TECHNIQUE: Digital Breast Tomosynthesis CC, MLO views of Both breasts were obtained with computer-aided detection to assist in interpretation of the study. FINDINGS: The breasts are extremely dense, which lowers the sensitivity of mammography. There is a group of microcalcifications in the retroareolar right breast at posterior third. Elsewhere, there are no mammographic features of malignancy. IMPRESSION: 1. Right breast Incompletely characterized group of calcifications. 2. No evidence of malignancy in the Left breast. RECOMMENDATION: Right breast Diagnostic mammogram with true lateral, and appropriate magnification views. BI-RADS Category 0: Incomplete: Needs additional imaging evaluation. Reviewed, dictated and finalized at location B. IMPRESSION: 1. Right breast Incompletely characterized group of calcifications. 2. No evidence of malignancy in the Left breast. RECOMMENDATION: Right breast Diagnostic mammogram with true lateral, and appropriate magnificat ion views. BI-RADS Category 0: Incomplete: Needs additional imaging evaluation.
--- NOTE | ~2025-05-22 | DEXA_ITS ---
Bone Density Report Name: SYLVIE GAXIOLA Age: 70 Sex: Female Ethnicity: White Date of : 1955 Indication: postmenopausal; screening for osteoporosis; Referring Provider: TIA ROJAS Study: Bone densitometry was performed. Exam Date: May 22, 2025 Accession number: [id number] Bone Density: Region BMD T-score Z-score Classification AP Spine(L1-L4) 0.992 -0.5 1.7 Normal Femoral Neck (Left) 0.684 -1.5 0.4 Osteopenia Total Hip (Left) 0.852 -0.7 0.9 Normal Femoral Neck (Right) 0.750 -0.9 1.0 Normal Total Hip (Right) 0.863 -0.6 1.0 Normal Total Hip Mean 0.858 -0.7 1.0 Normal World Health Organization criteria for BMD impression classify patients as: Normal (T-score at or above -1.0), Osteopenia (T-score between -1.0 and -2.5), or Osteoporosis (T-score at or below -2.5). 10-year Fracture Risk: FRAX not reported because: Treated for osteoporosis Clinical Information Provided by Patient: Is being treated for osteoporosis Has used the following medications: Fosamax (i.e. alendronate), Vitamin D Patient maximum height was 65 Menopause Age: 58 Drinks caffeinated beverages Onset of menses at age 10 Number of children 2 Impression: The patient has low bone mass, based on the Left Femoral Neck T-score. Discussion: It is important to ask patients whether they are taking their medications and to encourage continued and appropriate compliance with their osteoporosis therapies to reduce fracture risk. It is also important to review their risk factors and encourage appropriate calcium and vitamin D intakes, exercise, fall prevention and other lifestyle measures. Follow-Up: Consider a repeat BMD and Vertebral Fracture Assessment (VFA) exam in 2 years or sooner if medically necessary, to reassess this patient's status. Reported by: SANDY on 05/22/2025 1:03:00 PM. Reviewed, dictated and finalized at location A.
== END 2025-05-22 12:12 | disposition home or self-care (01) ==
PROVIDERS: PCP Nurse Practitioner Family; Visit Provider Obstetrics & Gynecology
DX: Z12.31 Encounter for screening mammogram for malignant neoplasm of breast (principal); Z78.0 Asymptomatic menopausal state; R63.4 Abnormal weight loss; R92.8 Other abnormal and inconclusive findings on diagnostic imaging of breast; M85.852 Other specified disorders of bone density and structure, left thigh
CPT/HCPCS: 77063; 77067; 77080

== ENCOUNTER 2025-06-17 11:44 | Outpatient (CLI) | payer MEDICARE, SELFPAY ==
--- NOTE | ~2025-06-17 | XR_ITS ---
Examination: XR chest 2V Clinical History: J20.9 - Acute bronchitis, unspecified Comparison: 10/04/2024 Technique: PA and Lateral Findings: Cardiomediastinal silhouette normal size and configuration. Lungs clear. Nodular opacity over left heart border probably nipple shadow. No acute bony abnormality. IMPRESSION: 1. No acute cardiopulmonary findings. 2. Probable nipple shadow left base. Attention on future x-rays and/or short interval follow-up x-rays. Reviewed, dictated and finalized at location R. IMPRESSION: 1. No acute cardiopulmonary findings. 2. Probable nipple shadow left base. Attention on future x-rays and/or short i nterval follow-up x-rays.
== END 2025-06-17 11:45 | disposition home or self-care (01) ==
PROVIDERS: PCP Family Medicine; Visit Provider Physician Assistant Medical
DX: J20.9 Acute bronchitis, unspecified (principal)
CPT/HCPCS: 71046

== ENCOUNTER 2025-07-02 08:54 | Outpatient (CLI) | payer MEDICARE, SELFPAY ==
--- NOTE | ~2025-07-02 | XR_ITS ---
EXAMINATION: XR chest 2V, 07/02/2025 8:59 CDT HISTORY: R91.8 - Other nonspecific abnormal finding of lung field COMPARISON: No comparisons available. Technique: 2 views obtained. Findings: The lungs are clear, no effusion. No pneumothorax. Heart is normal size. Mediastinal and hilar contours are within normal limits. Bony thorax no acute abnormality. Impression: No acute cardiopulmonary abnormality. Reviewed, dictated and finalized at location P. Impression: No acute cardiopulmonary abnormality.
--- NOTE | ~2025-07-02 | MM_ITS ---
EXAMINATION: MM diagnostic anabel RT w ray INDICATION: 70-year old female; BI-RADS 0, callback to evaluate Right breast calcifications COMPARISON: 05/22/2025 TECHNIQUE: Digital breast tomosynthesis True lateral view and magnification ML views of Right breast were obtained. FINDINGS: The breasts are extremely dense, which lowers the sensitivity of mammography. The calcifications seen in the retroareolar Right breast on the screening mammogram represent vascular calcifications. IMPRESSION: Right breast vascular calcifications. No further investigation necessary. RECOMMENDATION: Annual screening mammography in 12 months BI-RADS 2, BENIGN Reviewed, dictated and finalized at location C.
== END 2025-07-02 08:55 | disposition home or self-care (01) ==
PROVIDERS: PCP Physician Assistant Medical; Visit Provider Obstetrics & Gynecology
DX: R92.1 Mammographic calcification found on diagnostic imaging of breast (principal); R91.8 Other nonspecific abnormal finding of lung field
CPT/HCPCS: 71046; 77061; 77065; G0279

== ENCOUNTER 2025-09-10 13:41 | Outpatient (CLI) | payer MEDICARE, SELFPAY ==
--- NOTE | ~2025-09-10 | CT_ITS ---
EXAMINATION: CT sinus wo con DATE: 09/10/2025 13:54 INDICATION: Chronic sinusitis TECHNIQUE: Computed tomography (CT) of the paranasal sinuses was performed without intravenous contrast. The dose-length product was 282.66 mGy-cm. COMPARISON: CT dated 06/07/2024 FINDINGS: There is moderate mucosal thickening of the maxillary and ethmoid sinuses. No mucoperiosteal reaction. No significant nasal septal deviation. Ostiomeatal units are patent. Mastoids are pneumatized. IMPRESSION: 1. Moderate sinus disease primarily involving the maxillary and ethmoid sinuses. Reviewed, dictated and finalized at location O. F WHARFINGER IMPRESSION: 1. Moderate sinus disease primarily involving the maxillary and ethmoid sinuses .
== END 2025-09-10 13:42 | disposition home or self-care (01) ==
LOC: MICIMG 13:42
PROVIDERS: PCP Family Medicine; Visit Provider Otolaryngology
DX: J32.0 Chronic maxillary sinusitis (principal); J32.2 Chronic ethmoidal sinusitis
CPT/HCPCS: 70486